=== PATIENT | female | born 1960 | race Caucasian/White ===

== ENCOUNTER → 2016-02-27 | Outpatient (REF) | payer MEDICARE | LOC: M LAB REF 12:42 | PROVIDERS: ATTEND Internal Medicine Medical Oncology | DX: G35 Multiple sclerosis (principal) ==

== ENCOUNTER → 2016-07-24 | Outpatient (REF) | payer MEDICARE | LOC: M LAB REF 12:51 | PROVIDERS: ATTEND Internal Medicine Medical Oncology | DX: G35 Multiple sclerosis (principal) ==

== ENCOUNTER → 2016-09-18 | Outpatient (REF) | payer MEDICARE ==
[2016-10-05 00:06] LABS: JCV ANTIBODY Positive (.)
== END ==
LOC: M LAB REF 16:37
PROVIDERS: ATTEND Internal Medicine Medical Oncology
DX: G35 Multiple sclerosis (principal); E55.9 Vitamin D deficiency, unspecified

== ENCOUNTER → 2017-09-05 | Outpatient (CLI) | payer MEDICARE ==
[2017-09-05 16:50] LABS: CREATININE FOR GFR 0.63 MG/DL (0.55-1.30); GLOMERULAR FILTRATION RATE > 60.0 (>51)
[2017-09-05 16:50] LABS: BLOOD UREA NITROGEN 19 MG/DL (7-18)
== END ==
LOC: M WUC 14:02
DX: N18.9 Chronic kidney disease, unspecified (principal)
CPT/HCPCS: 82565

== ENCOUNTER 2018-01-20 13:49 | Outpatient (CLI) | payer MEDICARE ==
[2018-01-20] MEDS: NATALIZUMAB OVER 1 HOUR IV (14:40)
[2018-01-20] MEDS: NS 250 ML IV (15:45)
== END 2018-01-20 17:00 | disposition home or self-care (01) ==
LOC: M INFU 13:49
DX: G35 Multiple sclerosis (principal)
CPT/HCPCS: J2323

== ENCOUNTER 2018-02-18 14:32 | Outpatient (CLI) | payer MEDICARE ==
[~2018-02-18] VITALS: Ht 160 cm; Wt 53.1 kg
[~2018-02-18 14:32] MED LIST: CARV6.25 PO; LISI-542 PO; MULTCAP PO
[2018-02-18 14:35] VITALS: BP 160/72
[2018-02-18] MEDS ORDERED: NATALIZUMAB OVER 1 HOUR IV ONE ×2 (15:15)
[2018-02-18] MEDS ORDERED: NS 250 ML IV ONE (16:15)
[2018-02-18 18:25] VITALS: BP 160/74
== END 2018-02-18 18:25 | disposition home or self-care (01) ==
LOC: M INFU 14:32
PROVIDERS: ATTEND Psychiatry & Neurology Neurology
DX: G35 Multiple sclerosis (principal)
CPT/HCPCS: 96361; 96365; J2323

== ENCOUNTER 2018-03-18 13:08 | Outpatient (CLI) | payer MEDICARE ==
[~2018-03-18] VITALS: Ht 160 cm; Wt 53.1 kg
[2018-03-18 13:20] VITALS: BP 131/59
[2018-03-18] MEDS ORDERED: NATALIZUMAB OVER 1 HOUR IV ONE ×2 (13:30)
[2018-03-18 13:40] LABS: BASO # 0.1 10^3/uL (0.0-0.2); EOS # 0.3 10^3/uL (0.0-0.50); HEMATOCRIT 38.9 % (36.0-47.0); HEMOGLOBIN 12.9 g/dl (12.0-15.5); LYMPH # 4.5 10^3/uL (1.5-4.5); LYMPH % 53.3 % (24.0-44.0); MEAN CORPUSCULAR HEMOGLOBIN 30.9 pg (27.0-33.0); MEAN CORPUSCULAR HGB CONC 33.2 g/dl (32.0-36.5); MEAN CORPUSCULAR VOLUME 93.1 fl (80.0-96.0); MONO # 0.8 10^3/uL (0.0-0.8); MONO % 8.9 % (0.0-5.0); NEUTROPHILS # 2.8 10^3/uL (1.8-7.7); NEUTROPHILS % 33.7 % (36.0-66.0); PLATELET COUNT, AUTOMATED 226 10^3/uL (150-450); RED BLOOD COUNT 4.18 10^6/uL (4.00-5.40); WHITE BLOOD COUNT 8.4 10^3/uL (4.0-10.0)
[2018-03-18 15:00] VITALS: BP 142/65
[2018-03-18] MEDS ORDERED: NS 250 ML IV ONE (15:15)
[2018-03-18 16:40] VITALS: BP 160/70
[2018-03-18 16:47] LABS: ALBUMIN 3.7 GM/DL (3.2-5.2); ALT/SGPT 21 U/L (12-78); BILIRUBIN,TOTAL 0.2 MG/DL (0.2-1.0); BLOOD UREA NITROGEN 22 MG/DL (7-18); CALCIUM LEVEL 8.8 MG/DL (8.5-10.1); CARBON DIOXIDE LEVEL 30 MEQ/L (21-32); CHLORIDE LEVEL 106 MEQ/L (98-107); CREATININE FOR GFR 0.63 MG/DL (0.55-1.30); GLOMERULAR FILTRATION RATE > 60.0 (>51); GLUCOSE, FASTING 107 MG/DL (70-100); POTASSIUM SERUM 3.8 MEQ/L (3.5-5.1); SODIUM LEVEL 141 MEQ/L (136-145)
== END 2018-03-18 16:35 | disposition home or self-care (01) ==
LOC: M INFU 13:08
PROVIDERS: ATTEND Psychiatry & Neurology Neurology
DX: G35 Multiple sclerosis (principal)
CPT/HCPCS: 80053; 85025; 96365; J2323

== ENCOUNTER 2018-04-15 11:09 | Outpatient (CLI) | payer MEDICARE ==
[~2018-04-15] VITALS: Ht 160 cm; Wt 53.1 kg
[2018-04-15 11:15] VITALS: BP 161/72
[2018-04-15] MEDS ORDERED: NATALIZUMAB OVER 1 HOUR IV ONE ×2 (12:00)
[2018-04-15 12:55] VITALS: BP 146/66
[2018-04-15] MEDS ORDERED: NS 250 ML IV ONE (13:00)
[2018-04-15 14:15] VITALS: BP 165/74
== END 2018-04-15 14:15 | disposition home or self-care (01) ==
LOC: M INFU 11:09
PROVIDERS: ATTEND Psychiatry & Neurology Neurology
DX: G35 Multiple sclerosis (principal)
CPT/HCPCS: 96365; 96367; J2323

== ENCOUNTER 2018-12-21 19:56 | Emergency (ER) | payer MEDICARE ==
[~2018-12-21] VITALS: Ht 157.5 cm; Wt 51.4 kg
[2018-12-21 19:57] VITALS: BP 104/58
== END 2018-12-22 00:01 | disposition left against medical advice (07) ==
LOC: M ED 19:56
DX: Z53.21 Procedure and treatment not carried out due to patient leaving prior to being seen by health care provider (principal)

== ENCOUNTER → 2018-12-29 | Outpatient (REF) | payer MEDICARE ==
[2018-12-29 13:24] LABS: BASO # 0.1 10^3/uL (0.0-0.2); BASO % 0.8 % (0.0-1.0); EOS # 0.4 10^3/uL (0.0-0.5); EOS % 4.5 % (0.0-3.0); HEMATOCRIT 27.8 % (36.0-47.0); HEMOGLOBIN 8.3 g/dl (12.0-15.5); LYMPH # 1.6 10^3/uL (1.5-5.0); LYMPH % 21.1 % (24.0-44.0); MEAN CORPUSCULAR HEMOGLOBIN 29.3 pg (27.0-33.0); MEAN CORPUSCULAR HGB CONC 29.9 g/dl (32.0-36.5); MEAN CORPUSCULAR VOLUME 98.2 fl (80.0-96.0); MONO # 0.6 10^3/uL (0.0-0.8); MONO % 7.9 % (0.0-5.0); NEUTROPHILS % 64.5 % (36.0-66.0); PLATELET COUNT, AUTOMATED 561 10^3/uL (150-450); RED BLOOD COUNT 2.83 10^6/uL (4.00-5.40); WHITE BLOOD COUNT 7.8 10^3/uL (4.0-10.0)
[2018-12-29 13:32] LABS: ALBUMIN 2.6 GM/DL (3.2-5.2); ALT/SGPT 23 U/L (12-78); BILIRUBIN,TOTAL 0.2 MG/DL (0.2-1.0); BLOOD UREA NITROGEN 12 MG/DL (7-18); C REACTIVE PROTEIN QUANTITATIV 3.97 MG/DL (0.00-0.30); CALCIUM LEVEL 8.6 MG/DL (8.8-10.2); CARBON DIOXIDE LEVEL 28 MEQ/L (21-32); CHLORIDE LEVEL 107 MEQ/L (98-107); CREATININE FOR GFR 0.57 MG/DL (0.55-1.30); GLOMERULAR FILTRATION RATE > 60.0 (>45); GLUCOSE, FASTING 73 MG/DL (70-100); SODIUM LEVEL 144 MEQ/L (136-145); TOTAL PROTEIN 6.2 GM/DL (6.4-8.2); VANCOMYCIN LEVEL TROUGH 10.4 UG/ML (10.0-20.0)
[2018-12-29 14:07] LABS: ERYTHROCYTE SEDIMENTATION RATE 124 mm/hr (0-30)
== END ==
LOC: M SHH 12:33
DX: L89.159 Pressure ulcer of sacral region, unspecified stage (principal)

== ENCOUNTER → 2019-01-01 | Outpatient (REF) | payer MEDICARE | LOC: M SHH 11:34 | PROVIDERS: ATTEND Internal Medicine Infectious Disease | DX: Z51.81 Encounter for therapeutic drug level monitoring (principal); M46.28 Osteomyelitis of vertebra, sacral and sacrococcygeal region ==

== ENCOUNTER → 2019-01-04 | Outpatient (REF) | payer MEDICARE ==
[2019-01-04 12:16] LABS: BASO # 0.1 10^3/uL (0.0-0.2); BASO % 1.8 % (0.0-1.0); EOS # 0.4 10^3/uL (0.0-0.5); EOS % 6.1 % (0.0-3.0); HEMATOCRIT 30.2 % (36.0-47.0); HEMOGLOBIN 9.3 g/dl (12.0-15.5); LYMPH # 1.4 10^3/uL (1.5-5.0); MEAN CORPUSCULAR HEMOGLOBIN 30.6 pg (27.0-33.0); MEAN CORPUSCULAR HGB CONC 30.8 g/dl (32.0-36.5); MEAN CORPUSCULAR VOLUME 99.3 fl (80.0-96.0); MONO # 0.4 10^3/uL (0.0-0.8); MONO % 6.6 % (0.0-5.0); NEUTROPHILS # 3.9 10^3/uL (1.5-8.5); PLATELET COUNT, AUTOMATED 447 10^3/uL (150-450); RED BLOOD COUNT 3.04 10^6/uL (4.00-5.40); WHITE BLOOD COUNT 6.2 10^3/uL (4.0-10.0)
[2019-01-04 12:18] LABS: ALBUMIN 2.8 GM/DL (3.2-5.2); ALT/SGPT 19 U/L (12-78); BILIRUBIN,TOTAL 0.4 MG/DL (0.2-1.0); BLOOD UREA NITROGEN 10 MG/DL (7-18); C REACTIVE PROTEIN QUANTITATIV 0.79 MG/DL (0.00-0.30); CALCIUM LEVEL 8.5 MG/DL (8.8-10.2); CARBON DIOXIDE LEVEL 27 MEQ/L (21-32); CHLORIDE LEVEL 110 MEQ/L (98-107); CREATININE FOR GFR 0.61 MG/DL (0.55-1.30); GLOMERULAR FILTRATION RATE > 60.0 (>45); GLUCOSE, FASTING 95 MG/DL (70-100); POTASSIUM SERUM 3.5 MEQ/L (3.5-5.1); SODIUM LEVEL 145 MEQ/L (136-145); TOTAL PROTEIN 6.4 GM/DL (6.4-8.2); VANCOMYCIN LEVEL TROUGH 22.1 UG/ML (10.0-20.0)
[2019-01-04 12:47] LABS: ERYTHROCYTE SEDIMENTATION RATE 64 mm/hr (0-30)
== END ==
LOC: M SHH 11:23
PROVIDERS: ATTEND Internal Medicine Infectious Disease
DX: Z79.2 Long term (current) use of antibiotics (principal)

== ENCOUNTER → 2019-01-11 | Outpatient (REF) | payer MEDICARE ==
[2019-01-11 12:28] LABS: BASO # 0.1 10^3/uL (0.0-0.2); BASO % 2.2 % (0.0-1.0); EOS # 0.3 10^3/uL (0.0-0.5); EOS % 5.1 % (0.0-3.0); HEMOGLOBIN 10.2 g/dl (12.0-15.5); LYMPH # 1.7 10^3/uL (1.5-5.0); LYMPH % 30.7 % (24.0-44.0); MEAN CORPUSCULAR HEMOGLOBIN 30.5 pg (27.0-33.0); MEAN CORPUSCULAR HGB CONC 30.9 g/dl (32.0-36.5); MEAN CORPUSCULAR VOLUME 98.8 fl (80.0-96.0); MONO # 0.4 10^3/uL (0.0-0.8); MONO % 7.6 % (0.0-5.0); PLATELET COUNT, AUTOMATED 312 10^3/uL (150-450); RED BLOOD COUNT 3.34 10^6/uL (4.00-5.40); WHITE BLOOD COUNT 5.5 10^3/uL (4.0-10.0)
[2019-01-11 12:33] LABS: BLOOD UREA NITROGEN 12 MG/DL (7-18); CALCIUM LEVEL 9.4 MG/DL (8.8-10.2); CARBON DIOXIDE LEVEL 28 MEQ/L (21-32); CHLORIDE LEVEL 110 MEQ/L (98-107); CREATININE FOR GFR 0.55 MG/DL (0.55-1.30); GLOMERULAR FILTRATION RATE > 60.0 (>45); GLUCOSE, FASTING 79 MG/DL (70-100); POTASSIUM SERUM 3.6 MEQ/L (3.5-5.1); SODIUM LEVEL 144 MEQ/L (136-145)
[2019-01-11 12:34] LABS: ALBUMIN 3.1 GM/DL (3.2-5.2); ALT/SGPT 17 U/L (12-78); BILIRUBIN,TOTAL 0.2 MG/DL (0.2-1.0); C REACTIVE PROTEIN QUANTITATIV 0.51 MG/DL (0.00-0.30); TOTAL PROTEIN 6.7 GM/DL (6.4-8.2); VANCOMYCIN LEVEL TROUGH 6.3 UG/ML (10.0-20.0)
[2019-01-11 12:58] LABS: ERYTHROCYTE SEDIMENTATION RATE 57 mm/hr (0-30)
== END ==
LOC: M SHH 11:59
PROVIDERS: ATTEND Internal Medicine Infectious Disease
DX: Z79.2 Long term (current) use of antibiotics (principal); T81.30XA Disruption of wound, unspecified, initial encounter

== ENCOUNTER → 2019-01-18 | Outpatient (REF) | payer MEDICARE ==
[~2019-01-18] MED LIST changes: +DIPH2.5T15 PO; +EXCETAB33 PO; +KLOR10TA76 PO; +PROBCAP14 PO; +TIZA2CAP PO; +VANC10IN IV; +VANC25SOL IV; +[UNRECOGNIZED DRUG - CODE] IV
[2019-01-18 10:59] LABS: BASO # 0.1 10^3/uL (0.0-0.2); BASO % 1.4 % (0.0-1.0); EOS # 0.2 10^3/uL (0.0-0.5); EOS % 4.1 % (0.0-3.0); HEMATOCRIT 33.9 % (36.0-47.0); HEMOGLOBIN 10.4 g/dl (12.0-15.5); LYMPH # 1.5 10^3/uL (1.5-5.0); LYMPH % 24.9 % (24.0-44.0); MEAN CORPUSCULAR HEMOGLOBIN 30.6 pg (27.0-33.0); MEAN CORPUSCULAR HGB CONC 30.7 g/dl (32.0-36.5); MEAN CORPUSCULAR VOLUME 99.7 fl (80.0-96.0); MONO # 0.3 10^3/uL (0.0-0.8); MONO % 5.4 % (0.0-5.0); NEUTROPHILS # 3.8 10^3/uL (1.5-8.5); NEUTROPHILS % 63.9 % (36.0-66.0); PLATELET COUNT, AUTOMATED 237 10^3/uL (150-450); WHITE BLOOD COUNT 5.9 10^3/uL (4.0-10.0)
[2019-01-18 11:28] LABS: ALBUMIN 3.2 GM/DL (3.2-5.2); ALT/SGPT 19 U/L (12-78); BILIRUBIN,TOTAL 0.2 MG/DL (0.2-1.0); BLOOD UREA NITROGEN 13 MG/DL (7-18); C REACTIVE PROTEIN QUANTITATIV 0.72 MG/DL (0.00-0.30); CALCIUM LEVEL 8.9 MG/DL (8.8-10.2); CARBON DIOXIDE LEVEL 28 MEQ/L (21-32); CHLORIDE LEVEL 110 MEQ/L (98-107); CREATININE FOR GFR 0.58 MG/DL (0.55-1.30); GLOMERULAR FILTRATION RATE > 60.0 (>45); GLUCOSE, FASTING 78 MG/DL (70-100); POTASSIUM SERUM 3.6 MEQ/L (3.5-5.1); SODIUM LEVEL 144 MEQ/L (136-145); TOTAL PROTEIN 6.7 GM/DL (6.4-8.2); VANCOMYCIN LEVEL TROUGH 14.2 UG/ML (10.0-20.0)
[2019-01-18 11:37] LABS: ERYTHROCYTE SEDIMENTATION RATE 57 mm/hr (0-30)
== END ==
LOC: M SHH 09:28
PROVIDERS: ATTEND Internal Medicine Infectious Disease
DX: T81.30XA Disruption of wound, unspecified, initial encounter (principal); Z79.2 Long term (current) use of antibiotics

== ENCOUNTER 2019-01-20 01:41 | Emergency (ER) | payer MEDICARE ==
[~2019-01-20] VITALS: Ht 160 cm; Wt 54.5 kg
[~2019-01-20 01:41] MED LIST changes: -DIPH2.5T15 PO; -EXCETAB33 PO; -KLOR10TA76 PO; -PROBCAP14 PO; -TIZA2CAP PO; -VANC10IN IV; -VANC25SOL IV; -[UNRECOGNIZED DRUG - CODE] IV
[2019-01-20] MEDS ORDERED: VANC10IN IV (02:31)
[2019-01-20] MEDS ORDERED: [UNRECOGNIZED DRUG - CODE] (02:31)
[2019-01-20 03:42] LABS: BASO # 0.1 10^3/uL (0.0-0.2); BASO % 0.8 % (0.0-1.0); EOS # 0.1 10^3/uL (0.0-0.5); EOS % 1.3 % (0.0-3.0); HEMATOCRIT 31.8 % (36.0-47.0); LYMPH # 0.9 10^3/uL (1.5-5.0); LYMPH % 10.9 % (24.0-44.0); MEAN CORPUSCULAR HGB CONC 31.4 g/dl (32.0-36.5); MEAN CORPUSCULAR VOLUME 98.5 fl (80.0-96.0); MONO # 0.5 10^3/uL (0.0-0.8); MONO % 6.2 % (0.0-5.0); NEUTROPHILS # 6.7 10^3/uL (1.5-8.5); NEUTROPHILS % 80.4 % (36.0-66.0); PLATELET COUNT, AUTOMATED 241 10^3/uL (150-450); RED BLOOD COUNT 3.23 10^6/uL (4.00-5.40); WHITE BLOOD COUNT 8.3 10^3/uL (4.0-10.0)
[2019-01-20] MEDS ORDERED: ACETAMINOPHEN TAB 650MG DOSE (2X325MG) PO ONE (03:45)
[2019-01-20] MEDS ORDERED: NS 1,000 ML IV ONE (03:45)
--- NOTE | 2019-01-20 03:49 | REPVR ---
PROCEDURE INFORMATION: Exam: CT Head Without Contrast Exam date and time: 01/20/2019 3:23 AM Age: 58 years old Clinical history: Pain; Headache; Additional info: B/l motor dysfunction, HX of ms TECHNIQUE: Imaging protocol: Computed tomography of the head without contrast. Radiation optimization: All CT scans at this facility use at least one of these dose optimization techniques: automated exposure control; mA and/or kV adjustment per patient size (includes targeted exams where dose is matched to clinical indication); or iterative reconstruction. COMPARISON: MRI-Brain W/O FOLL BY WITH 02/23/2013 2:38 PM FINDINGS: Brain: There is moderate patchy low attenuation of deep white matter. There is slight prominence of the peripheral sulci. Ventricles: There is slight prominence of the central ventricular system. Bones/joints: Unremarkable. No acute fracture. Sinuses: Visualized sinuses are unremarkable. No fluid levels. Mastoid air cells: Visualized mastoid air cells are well aerated. Soft tissues: Unremarkable. IMPRESSION: 1. Moderate chronic ischemic white matter change and minimal atrophy. 2. Otherwise negative noncontrast head CT. Electronically signed by: Mati Melchor On 01/20/2019 03:49:08 AM
[2019-01-20 03:52] LABS: ALBUMIN 3.2 GM/DL (3.2-5.2); ALT/SGPT 24 U/L (12-78); BILIRUBIN,DIRECT < 0.1 MG/DL (0.0-0.2); BILIRUBIN,TOTAL 0.3 MG/DL (0.2-1.0); LIPASE 83 U/L (73-393); TOTAL PROTEIN 6.9 GM/DL (6.4-8.2)
[2019-01-20] MEDS ORDERED: POTASSIUM CHLORIDE 10 MEQ SR TABLET PO ONE (04:15)
[2019-01-20 04:40] LABS: INFLUENZA A AMPLIFICATION NEGATIVE (NEGATIVE); INFLUENZA B AMPLIFICATION NEGATIVE (NEGATIVE)
[2019-01-20 05:15] VITALS: BP 123/60
== END 2019-01-20 06:48 | disposition home or self-care (01) ==
LOC: M ED 01:41
DX: G35 Multiple sclerosis (principal); R29.818 Other symptoms and signs involving the nervous system; R50.9 Fever, unspecified; I10 Essential (primary) hypertension; Z79.899 Other long term (current) drug therapy; Z79.2 Long term (current) use of antibiotics

== ENCOUNTER → 2019-01-25 | Outpatient (REF) | payer MEDICARE ==
[~2019-01-25] MED LIST changes: +VANC10IN IV; +[UNRECOGNIZED DRUG - CODE]
[2019-01-25 11:01] LABS: BASO # 0.1 10^3/uL (0.0-0.2); BASO % 1.9 % (0.0-1.0); EOS # 0.3 10^3/uL (0.0-0.5); EOS % 5.2 % (0.0-3.0); HEMATOCRIT 30.5 % (36.0-47.0); HEMOGLOBIN 9.8 g/dl (12.0-15.5); LYMPH # 1.5 10^3/uL (1.5-5.0); MEAN CORPUSCULAR HEMOGLOBIN 30.9 pg (27.0-33.0); MEAN CORPUSCULAR HGB CONC 32.1 g/dl (32.0-36.5); MEAN CORPUSCULAR VOLUME 96.2 fl (80.0-96.0); MONO # 0.4 10^3/uL (0.0-0.8); MONO % 8.2 % (0.0-5.0); NEUTROPHILS % 56.5 % (36.0-66.0); PLATELET COUNT, AUTOMATED 347 10^3/uL (150-450); RED BLOOD COUNT 3.17 10^6/uL (4.00-5.40); WHITE BLOOD COUNT 5.4 10^3/uL (4.0-10.0)
[2019-01-25 11:33] LABS: ALBUMIN 2.8 GM/DL (3.2-5.2); ALT/SGPT 20 U/L (12-78); BILIRUBIN,TOTAL 0.5 MG/DL (0.2-1.0); BLOOD UREA NITROGEN 6 MG/DL (7-18); C REACTIVE PROTEIN QUANTITATIV 2.39 MG/DL (0.00-0.30); CALCIUM LEVEL 8.7 MG/DL (8.8-10.2); CARBON DIOXIDE LEVEL 28 MEQ/L (21-32); CHLORIDE LEVEL 105 MEQ/L (98-107); CREATININE FOR GFR 0.62 MG/DL (0.55-1.30); GLOMERULAR FILTRATION RATE > 60.0 (>45); GLUCOSE, FASTING 74 MG/DL (70-100); POTASSIUM SERUM 3.1 MEQ/L (3.5-5.1); SODIUM LEVEL 145 MEQ/L (136-145); TOTAL PROTEIN 6.5 GM/DL (6.4-8.2); VANCOMYCIN LEVEL TROUGH 15.4 UG/ML (10.0-20.0)
[2019-01-25 11:58] LABS: ERYTHROCYTE SEDIMENTATION RATE 63 mm/hr (0-30)
== END ==
LOC: M SHH 10:45
PROVIDERS: ATTEND Internal Medicine Infectious Disease
DX: Z79.2 Long term (current) use of antibiotics (principal)

== ENCOUNTER 2019-02-01 17:57 | Observation (INO) | payer MEDICARE ==
[~2019-02-01] VITALS: Ht 160 cm; Wt 53.7 kg
[~2019-02-01 17:57] MED LIST changes: -EXCETAB33 PO; -KLOR10TA76 PO; -PROBCAP14 PO; -TIZA2CAP PO; -VANC25SOL IV
[2019-02-01] MEDS ORDERED: VANC25SOL IV (18:05)
[2019-02-01 18:41] LABS: BASO # 0.1 10^3/uL (0.0-0.2); BASO % 1.1 % (0.0-1.0); EOS # 0.3 10^3/uL (0.0-0.5); EOS % 4.2 % (0.0-3.0); HEMATOCRIT 28.1 % (36.0-47.0); HEMOGLOBIN 8.6 g/dl (12.0-15.5); LYMPH # 1.8 10^3/uL (1.5-5.0); LYMPH % 27.5 % (24.0-44.0); MEAN CORPUSCULAR HEMOGLOBIN 30.5 pg (27.0-33.0); MEAN CORPUSCULAR HGB CONC 30.6 g/dl (32.0-36.5); MEAN CORPUSCULAR VOLUME 99.6 fl (80.0-96.0); MONO # 0.6 10^3/uL (0.0-0.8); MONO % 9.6 % (0.0-5.0); NEUTROPHILS # 3.8 10^3/uL (1.5-8.5); NEUTROPHILS % 57.3 % (36.0-66.0); PLATELET COUNT, AUTOMATED 317 10^3/uL (150-450); RED BLOOD COUNT 2.82 10^6/uL (4.00-5.40); WHITE BLOOD COUNT 6.7 10^3/uL (4.0-10.0)
[2019-02-01 19:19] LABS: BLOOD UREA NITROGEN 12 MG/DL (7-18); CALCIUM LEVEL 9.1 MG/DL (8.8-10.2); CARBON DIOXIDE LEVEL 31 MEQ/L (21-32); CHLORIDE LEVEL 107 MEQ/L (98-107); CREATININE FOR GFR 0.94 MG/DL (0.55-1.30); GLOMERULAR FILTRATION RATE > 60.0 (>45); GLUCOSE, FASTING 99 MG/DL (70-100); POTASSIUM SERUM 2.5 MEQ/L (3.5-5.1); SODIUM LEVEL 144 MEQ/L (136-145)
[2019-02-01] MEDS ORDERED: KCL 10MEQ/100ML SWI (KRUN) 10 MEQ in IV 1 EA IV ONE (19:30)
[2019-02-01] MEDS ORDERED: POTASSIUM CHLORIDE 10 MEQ SR TABLET PO ONE ×2 (19:30→21:00)
--- NOTE | 2019-02-01 19:49 | HPEPDOC ---
[facility] Medical History & Physical Date of Admission Feb 01, 2019 Date of Service: Feb 01, 2019 Attending Physician: SIRI MORALEZ MD History and Physical TIME OF SERVICE: 9 PM CHIEF COMPLAINT: Sent by home RN HISTORY OF PRESENT ILLNESS: This is a 58-year-old female who was sent to the hospital by her home RN who lisha blood and noticed that her potassium was low. The patient denies having nausea or vomiting, but admits to having diarrhea off and on for the last few days and muscle cramps affecting her right leg. She denies having chest pain or palpitations. 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 Right hip fracture status post ORIF Chronic hypertension SOCIAL HISTORY: She denies smoking FAMILY HISTORY: Hypertension ALLERGIES: Please see below. HOME MEDICATIONS: Please see below. PHYSICAL EXAMINATION: VITAL SIGNS: Please see below. GEN: Slim build/ well developed/ NAD INTEGUMENT: not flushed/ not jaundice / she has a sacral wound HEENT: normocephalic / atraumatic /mucus membranes moist and pink / sclera anicteric CVS: RRR/NMRG/ / radial pulses intact / no lower extremity edema LUNGS: lungs are clear to auscultation bilaterally on room air ABDOMEN: the abdomen is soft & not tender with palpation MSK/EXTREMITIES: range of motion intact in all 4 extremities NEURO: CN 2-12 are grossly intact / speech is not dysarthric PSYCH: alert and oriented to person place and time/ able to understand and follow all commands/ has a flat affect LABORATORY DATA: See below. MICROBIOLOGY: Please see below. ASSESSMENT: is a 58-year-old with a past medical history of MS, sacral wound with osteomyelitis, and chronic hypertension. Will be admitted for management of hypokalemia, likely secondary to diarrhea. PLAN: 1. Hypokalemia likely due to diarrhea EKG showed normal sinus rhythm with a heart rate of 69 and QTC of 357 Her serum magnesium and calcium are within normal limits Plan: Follow up repeat potassium/replete electrolytes as necessary 2. Diarrhea Cause to be determined. She does not have any SIRS criteria Plan: Contact precautions/because she is on abx we will test for C. difficile / since she is immunocompromised, we will also test for Giardia, stool calprotectin stool, ova & parasites 3. Uncontrolled hypertension. Plan: Resume lisinopril tonight 4. Macrocytic anemia. It may be due to to natalizumab vs B12 deficiency vs liver disease vs hypothyroidism vs aplastic anemia vs folate deficiency Her hemoglobin is 8.6--> her baseline is around 9.8 Plan: f/u reticulocyte #, B12, RBC folate, TSH & LFTs / target Hg >7 5. Chronic Stage IV Sacral Wound Plan: air matress / wound care 6. Multiple Sclerosis Plan: f/u w as scheduled DVT prophylaxis with SCDs. Disposition: Likely home after less than 2 midnight stay Vital Signs Vital Signs Date Time Temp Pulse Resp B/P (MAP) Pulse Ox O2 Delivery O2 Flow Rate FiO2 02/01/19 18:30 02/01/19 18:27 71 100 02/01/19 17:57 98.5 16 Room Air Laboratory Data Labs 24H Laboratory Tests 2 02/01/19 18:34: Immature Granulocyte % (Auto) 0.3, Neutrophils (%) (Auto) 57.3, Lymphocytes (%) (Auto) 27.5, Monocytes (%) (Auto) 9.6H, Eosinophils (%) (Auto) 4.2H, Basophils (%) (Auto) 1.1H, Neutrophils # (Auto) 3.8, Lymphocytes # (Auto) 1.8, Monocytes # (Auto) 0.6, Eosinophils # (Auto) 0.3, Basophils # (Auto) 0.1, Nucleated Red Blood Cells % (auto) 0.0, Anion Gap 6L, Glomerular Filtration Rate > 60.0, Calcium Level 9.1 CBC/BMP Laboratory Tests 02/01/19 18:34 Home Medications Scheduled Carvedilol (Carvedilol) 6.25 Mg Tab, 6.25 MG PO BID Lactobacillus Acidophilus (Probiotic) 1 Each Capsule, 1 CAP PO DAILY Lisinopril (Lisinopril) 5 Mg Tab, 5 MG PO QHS Piperacillin Sodium/Tazobactam (Piperacil-Tazobact 40.5 Gram) 40.5 Gm Vial, 13.5 GM IV DAILY INFUSE AT 10ML/HOUR OVER 24 HOURS Potassium Chloride (Klor-Con M10) 10 Meq Tab.er.prt, 40 MEQ PO BID Vancomycin HCl (Vancomycin HCl) 5 Gm Vial, 1.5 GM IV DAILY THRU 02/03/19 Scheduled PRN Aspirin/Acetaminophen/Caffeine (Excedrin Migraine Caplet) 1 Each Tablet, 2 TAB- CAP PO DAILY PRN for HEADACHE Tizanidine HCl (Tizanidine HCl) 2 Mg Capsule, 2 MG PO TID PRN for SPASMS Allergies Coded Allergies: No Known Allergies (Unverified , 12/21/18) A-FIB/CHADSVASC A-FIB History Current/History of A-Fib/PAF?: No Current PO Anticoag Therapy: No SIRI MORALEZ MD Feb 01, 2019 19:49
[2019-02-01] MEDS ORDERED: TIZA2CAP PO (20:06)
[2019-02-01] MEDS ORDERED: EXCETAB33 PO (20:06)
[2019-02-01] MEDS ORDERED: PROBCAP14 PO (20:06)
[2019-02-01] MEDS ORDERED: lisinopriL 5 MG TAB PO SCH (21:00)
[2019-02-01] MEDS: CARVedilol 6.25 MG TAB PO SCH (21:14)
[2019-02-01] MEDS ORDERED: PILL CUTTER 1 EACH XX PRN (21:15)
[2019-02-01] MEDS ORDERED: tiZANidine 4 MG TAB PO PRN (21:15)
[2019-02-01] MEDS ORDERED: PERCOCET 5MG/325MG TAB PO ONE (21:15)
[2019-02-01] MEDS ORDERED: EXCEDRIN MIGRAINE TABLET PO PRN (21:15)
[2019-02-01] MEDS: KCL 40MEQ IN D5/0.45NS 1000ML 1,000 ML IV SCH (21:46)
[2019-02-01 22:51] LABS: MAGNESIUM LEVEL 2.2 MG/DL (1.8-2.4)
[2019-02-01 22:55] VITALS: BP 152/82
[2019-02-02] MEDS: KCL 40MEQ IN D5/0.45NS 1000ML 1,000 ML IV SCH ×2 (02:58→08:02)
[2019-02-02] MEDS ORDERED: POTASSIUM CHLORIDE 10 MEQ SR TABLET PO ONE (03:00)
[2019-02-02 06:00] VITALS: BP 148/80
[2019-02-02 06:12] LABS: HEMATOCRIT 30.2 % (36.0-47.0); HEMOGLOBIN 9.2 g/dl (12.0-15.5); MEAN CORPUSCULAR HEMOGLOBIN 30.5 pg (27.0-33.0); MEAN CORPUSCULAR HGB CONC 30.5 g/dl (32.0-36.5); PLATELET COUNT, AUTOMATED 345 10^3/uL (150-450); RED BLOOD COUNT 3.02 10^6/uL (4.00-5.40); WHITE BLOOD COUNT 5.6 10^3/uL (4.0-10.0)
[2019-02-02 06:37] LABS: BLOOD UREA NITROGEN 7 MG/DL (7-18); CARBON DIOXIDE LEVEL 26 MEQ/L (21-32); CHLORIDE LEVEL 113 MEQ/L (98-107); CREATININE FOR GFR 0.78 MG/DL (0.55-1.30); GLOMERULAR FILTRATION RATE > 60.0 (>45); GLUCOSE, FASTING 109 MG/DL (70-100); MAGNESIUM LEVEL 2.2 MG/DL (1.8-2.4); POTASSIUM SERUM 3.6 MEQ/L (3.5-5.1); SODIUM LEVEL 145 MEQ/L (136-145)
[2019-02-02 08:03] VITALS: BP 147/85
[2019-02-02] MEDS: CARVedilol 6.25 MG TAB PO SCH (08:03)
--- NOTE | 2019-02-02 08:12 | ECGEPIP ---
[facility] - ED Test Date: 2019-02-01 Pat Name: GAMALIEL VASQUEZ Department: Room: [place] [address] Gender: Female Commercial Accountant: : [id number] Requested By: GEMA Shaffer Order Number: [id number] Reading MD: Ricky Garner Measurements Intervals [place] Rate: 69 P: 46 WV: 149 QRS: 15 QRSD: 94 T: 12 QT: 338 QTc: 363 Interpretive Statements SINUS RHYTHM NSTTW ABNORMALITIES NO PRIORS FOR COMPARISON Electronically Signed on 02-02-2019 8:12:04 EST by Ricky Garner
[2019-02-02] MEDS ORDERED: KLOR10TA76 PO (08:44)
[2019-02-02] MEDS ORDERED: PIPERACILLIN IV SCH (09:00)
[2019-02-02] MEDS ORDERED: PIPERACILLIN/TAZOBACTAM SOD 4.5 GM in D5W MINI-BAG PLUS 50 ML IV SCH (09:00)
[2019-02-02] MEDS ORDERED: TAZOBACTAM IV SCH (09:00)
[2019-02-02] MEDS ORDERED: LACTOBACILLUS ACIDOPHILUS CAP (BACID) PO SCH (09:00)
[2019-02-02] MEDS ORDERED: POTASSIUM CHLORIDE 10 MEQ SR TABLET PO SCH (09:00)
--- NOTE | 2019-02-02 14:31 | DSES ---
DATE OF ADMISSION: 02/01/2019 DATE OF DISCHARGE: 02/02/2019 PRIMARY DISCHARGE DIAGNOSES: 1. Hypokalemia. 2. Stage IV sacral wounds with osteomyelitis with failed surgical flap on chronic IV vancomycin and Zosyn, followed by infectious disease specialist Dr. Hua. 3. History of multiple sclerosis, currently in a wheelchair. 4. Chronic hypertensive heart disease. DISCHARGE MEDICATIONS: - potassium chloride 40 mEq by mouth twice a day - Excedrin migraine two capsules daily as needed - Coreg 6.25 twice a day - probiotic one cap daily - lisinopril 5 at bedtime - vancomycin 1.5 grams daily - tizanidine 10 mg three times a day as needed - Zosyn 13.5 grams IV daily HOSPITAL COURSE: This is a 58-year-old female with history of stage IV infected osteomyelitis sacral wound on chronic IV vancomycin followed by Dr. Hua as an outpatient, multiple sclerosis, currently bed bound and wheelchair, right hip fracture status post ORIF and chronic hypertension who presented to the emergency room with low potassium level. The patient was supplemented overnight both orally and intravenously. Magnesium was checked which was 2.2. The patient had improvement from admission potassium of 2.5 to discharge potassium of 3.6 and was released on supplemental potassium 40 mEq twice a day without outpatient followup with her primary care physician within a week. The patient had no other issues overnight and was continued on her IV antibiotics during the hospital admission. PHYSICAL EXAMINATION ON DISCHARGE: Temperature 98.1, pulse 70, respiratory rate 17, blood pressure 148/80, 97% on room air. Generally, patient is awake, alert and oriented to person, place and time. Able to speak in full sentences with no respiratory distress or use of respiratory accessory muscles. Lungs are clear to auscultation. No wheezing, rales or rhonchi. Heart S1, S2 sinus rhythm. No murmurs, rubs or gallops. Abdomen is soft, nontender, nondistended. Positive bowel sounds times four quadrants. No hepatosplenomegaly. Sacrum has a stage IV decubitus, no purulence, no significant tenderness. Extremities no cyanosis, clubbing or any pitting edema. LABORATORY DATA ON DISCHARGE: White count 5.6, hemoglobin 9.2, hematocrit 30, platelet count 345. Sodium 145, potassium 3.6, chloride 113, bicarb 26, BUN 7, creatinine 0.78, glucose of 109, magnesium of 2.2. Time spent on discharge: 30 minutes. MTDD
== END 2019-02-02 11:14 | disposition home or self-care (01) ==
LOC: M ED 17:57 → M ED INP 17:58 → M MSPAV 22:55
PROVIDERS: ADMIT Internal Medicine; ATTEND General Practice
DX: E87.6 Hypokalemia (principal); M46.28 Osteomyelitis of vertebra, sacral and sacrococcygeal region; L89.154 Pressure ulcer of sacral region, stage 4; G35 Multiple sclerosis; T81.30XA Disruption of wound, unspecified, initial encounter; Z79.2 Long term (current) use of antibiotics; Z99.3 Dependence on wheelchair; Z79.899 Other long term (current) drug therapy; I11.0 Hypertensive heart disease with heart failure
CPT/HCPCS: 36415; 80053; 80202; 83735; 84132; 85025; 85027; 85652; 86140; 93005; 93041; 94760; 96360; 96361; 99285; G0378

== ENCOUNTER → 2019-02-01 | Outpatient (REF) | payer MEDICARE ==
[~2019-02-01] MED LIST changes: +EXCETAB33 PO; +KLOR10TA76 PO; +PROBCAP14 PO; +TIZA2CAP PO; +VANC25SOL IV; -[UNRECOGNIZED DRUG - CODE]; +[UNRECOGNIZED DRUG - CODE] IV
[2019-02-01 12:18] LABS: BASO # 0.1 10^3/uL (0.0-0.2); EOS # 0.1 10^3/uL (0.0-0.5); EOS % 1.3 % (0.0-3.0); HEMATOCRIT 29.8 % (36.0-47.0); HEMOGLOBIN 9.3 g/dl (12.0-15.5); LYMPH # 1.1 10^3/uL (1.5-5.0); LYMPH % 14.3 % (24.0-44.0); MEAN CORPUSCULAR HEMOGLOBIN 30.8 pg (27.0-33.0); MEAN CORPUSCULAR HGB CONC 31.2 g/dl (32.0-36.5); MEAN CORPUSCULAR VOLUME 98.7 fl (80.0-96.0); MONO # 0.6 10^3/uL (0.0-0.8); NEUTROPHILS % 76.1 % (36.0-66.0); PLATELET COUNT, AUTOMATED 372 10^3/uL (150-450); RED BLOOD COUNT 3.02 10^6/uL (4.00-5.40); WHITE BLOOD COUNT 7.8 10^3/uL (4.0-10.0)
[2019-02-01 13:03] LABS: ERYTHROCYTE SEDIMENTATION RATE 86 mm/hr (0-30)
[2019-02-01 14:06] LABS: ALBUMIN 2.7 GM/DL (3.2-5.2); ALT/SGPT 40 U/L (12-78); BILIRUBIN,TOTAL 0.3 MG/DL (0.2-1.0); BLOOD UREA NITROGEN 9 MG/DL (7-18); CALCIUM LEVEL 8.7 MG/DL (8.8-10.2); CARBON DIOXIDE LEVEL 31 MEQ/L (21-32); CHLORIDE LEVEL 107 MEQ/L (98-107); GLOMERULAR FILTRATION RATE > 60.0 (>45); GLUCOSE, FASTING 86 MG/DL (70-100); POTASSIUM SERUM 2.5 MEQ/L (3.5-5.1); SODIUM LEVEL 144 MEQ/L (136-145); TOTAL PROTEIN 6.4 GM/DL (6.4-8.2)
== END ==
LOC: M LAB REF 11:48
PROVIDERS: ATTEND Internal Medicine Infectious Disease
DX: T81.30XA Disruption of wound, unspecified, initial encounter (principal); Z79.2 Long term (current) use of antibiotics

== ENCOUNTER → 2019-02-04 | Outpatient (REF) | payer MEDICARE ==
[~2019-02-04] MED LIST changes: +EXCETAB33 PO; +KLOR10TA76 PO; +PROBCAP14 PO; +TIZA2CAP PO; +VANC25SOL IV
== END ==
LOC: M SFHCPLAZ 18:37
PROVIDERS: ATTEND Internal Medicine Infectious Disease
DX: R19.7 Diarrhea, unspecified (principal)

== ENCOUNTER 2019-02-09 11:57 | Emergency (ER) | payer MEDICARE ==
[~2019-02-09] VITALS: Ht 160 cm; Wt 5.4 kg
[2019-02-09] MEDS ORDERED: DIPH2.5T15 PO (12:14)
[2019-02-09 14:15] VITALS: BP 174/79
== END 2019-02-09 14:44 | disposition home or self-care (01) ==
LOC: EDSEX 11:57 → EDBD 11:57 → M ED 11:57
DX: L89.154 Pressure ulcer of sacral region, stage 4 (principal); J44.9 Chronic obstructive pulmonary disease, unspecified; G35 Multiple sclerosis; Z79.899 Other long term (current) drug therapy; Z79.82 Long term (current) use of aspirin

== ENCOUNTER → 2019-02-18 | Outpatient (REF) | payer MEDICARE ==
[~2019-02-18] MED LIST changes: +DIPH2.5T15 PO; +POTA10TA17 PO
== END ==
LOC: M SFHCPLAZ 14:23
PROVIDERS: ATTEND Surgery
DX: T81.31XD Disruption of external operation (surgical) wound, not elsewhere classified, subsequent encounter (principal)

== ENCOUNTER 2019-03-15 15:45 | Inpatient (IN) | payer MEDICARE ==
[~2019-03-15] VITALS: Ht 160 cm; Wt 45.1 kg
[~2019-03-15 15:45] MED LIST changes: -POTA10TA17 PO
[2019-03-15] MEDS ORDERED: ACETAMINOPHEN TAB 650MG DOSE (2X325MG) PO ONE (16:15)
[2019-03-15] MEDS ORDERED: GI COCKTAIL 50ML BTL(HYOSCYAMINE/MAALOX/LIDOCAINE VISCOUS)(1:3:1) PO ONE (16:30)
[2019-03-15] MEDS ORDERED: NS 1,000 ML IV ONE (16:30)
[2019-03-15] MEDS ORDERED: EXCEDRIN MIGRAINE TABLET PO PRN (16:45)
[2019-03-15 16:52] LABS: BASO # 0.1 10^3/uL (0.0-0.2); BASO % 0.5 % (0.0-1.0); EOS # 0.1 10^3/uL (0.0-0.5); EOS % 0.7 % (0.0-3.0); HEMATOCRIT 26.4 % (36.0-47.0); LYMPH # 0.9 10^3/uL (1.5-5.0); LYMPH % 7.7 % (24.0-44.0); MEAN CORPUSCULAR HEMOGLOBIN 28.5 pg (27.0-33.0); MEAN CORPUSCULAR HGB CONC 30.3 g/dl (32.0-36.5); MONO # 0.5 10^3/uL (0.0-0.8); MONO % 4.4 % (0.0-5.0); NEUTROPHILS # 10.5 10^3/uL (1.5-8.5); NEUTROPHILS % 86.2 % (36.0-66.0); PLATELET COUNT, AUTOMATED 950 10^3/uL (150-450); RED BLOOD COUNT 2.81 10^6/uL (4.00-5.40); WHITE BLOOD COUNT 12.1 10^3/uL (4.0-10.0)
[2019-03-15 17:09] LABS: ALBUMIN 2.2 GM/DL (3.2-5.2); ALT/SGPT 19 U/L (12-78); BILIRUBIN,DIRECT < 0.1 MG/DL (0.0-0.2); BILIRUBIN,TOTAL < 0.1 MG/DL (0.2-1.0); BLOOD UREA NITROGEN 18 MG/DL (7-18); CALCIUM LEVEL 8.5 MG/DL (8.8-10.2); CARBON DIOXIDE LEVEL 28 MEQ/L (21-32); CHLORIDE LEVEL 101 MEQ/L (98-107); CK-MB VALUE MASS 1.1 NG/ML (<3.6); CPK CREATINE PHOSPHOKINASE 37 U/L (26-192); CREATININE FOR GFR 0.61 MG/DL (0.55-1.30); GLOMERULAR FILTRATION RATE > 60.0 (>45); GLUCOSE, FASTING 92 MG/DL (70-100); MB/CK RELATIVE INDEX 2.97 (< OR =4); POTASSIUM SERUM 4.1 MEQ/L (3.5-5.1); SODIUM LEVEL 138 MEQ/L (136-145); TOTAL PROTEIN 6.6 GM/DL (6.4-8.2); TROPONIN I < 0.02 NG/ML (< 0.10)
[2019-03-15 17:14] LABS: INFLUENZA A AMPLIFICATION NEGATIVE (NEGATIVE); INFLUENZA B AMPLIFICATION NEGATIVE (NEGATIVE)
--- NOTE | 2019-03-15 17:15 | REP ---
Portable chest, single AP view with the patient upright, 04:53 p.m.: Comparison is 06/14/2011. The patient is rotated obscuring portions of the lung ly. The visualized lung ly are clear. On the prior study there were left rib fractures. These are obscured on the current study because of patient rotation. Impression: No infiltrates in the visualized lung ly. Patient rotated. Electronically Signed by Morgan Jose MD 03/15/2019 05:07 P
[2019-03-15] MEDS ORDERED: POTA10TA17 PO (17:52)
[2019-03-15] MEDS ORDERED: VANCOMYCIN HCL 1,000 MG, VIAL MATE ADAPTER 1 EACH in D5W 250 ML IV SCH (20:00)
[2019-03-15] MEDS ORDERED: ONDANSETRON 4MG/2ML VIAL IV PRN (20:00)
[2019-03-15] MEDS ORDERED: LORazepam 2 MG/ML VIAL (J2060) IV STA (20:43)
[2019-03-15] MEDS ORDERED: PROHANCE 279.3MG/ML 5ML VIAL As Ordered ONE (21:52)
[2019-03-15] MEDS ORDERED: PIPERACILLIN/TAZOBACTAM SOD 3.375 GM in D5W MINI-BAG PLUS 50 ML IV ONE (22:00)
[2019-03-15] MEDS ORDERED: VANCOMYCIN HCL 1,000 MG, VIAL MATE ADAPTER 1 EACH in D5W 250 ML IV ONE (22:00)
[2019-03-15] MEDS ORDERED: tiZANidine 4 MG TAB PO PRN (22:30)
--- NOTE | 2019-03-15 22:39 | HPEPDOC ---
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 She was advised by her home nurse to come to the ER for further evaluation after a [id number] earlier this evening. She notes that shes noticed she is unable to lift herself up from a wheelchair which is a test that she can normally do. She notes that last Friday she had her wound appreciated by Dr. Matt office and noticed that her symptoms occurred 24 hours later. She states that she has her wounds changed every Friday and Friday by her home care nurse and Friday when she goes to Dr. Matt office. She notes that she had a bone pathology done in February 19 which was positive for osteomyelitis even though shes completed 6 weeks of IV antibiotics. She was supposed to reestablish with Dr. Hua, to see if she needs to be restarted on a ntibiotics. She denies weight loss, hair loss, headache, visual changes, chest pain, shortness of breath, cough, nausea, vomiting, abdominal pain, muscle aches, worsening arthritis, change in mood] PAST MEDICAL HISTORY: 1. Multiple sclerosis 2. Hypertension. 3. Sacral osteomyelitis with failed sacral flap at [facility] 12/14/2018, repleted 6 weeks of antibiotics (Vanco and Zosyn) 4. History of right hip fracture s/p ORIF 5. History of lower extremity edema HOME MEDICATIONS: Please see below. ALLERGIES: Please see below PAST SURGICAL HISTORY: 1. Failed sacral flap repair 2018 2. Hip fracture repair 2015 SOCIAL HISTORY: Lives with: Alone in [place] Employment: Retired/disabled, Tobacco use: Nonsmoker. ETOH: Denies, Illicit drug use: Denies, CODE STATUS: Full code FAMILY HISTORY: Reviewed and noncontributory. Son- , father - heart disease, history of cancer, hypertension. Mother - heart disease, hypertension, history of cancer. REVIEW OF SYSTEMS: 10 systems reviewed and negative other than HPI PHYSICAL EXAMINATION: VITAL SIGNS: See below GENERAL: Pleasant 58 female laying in bed awake alert oriented speaking in complete sentences no acute distress HEENT: Atraumatic, normocephalic, pupils are equal round and reactive, moist mucous membranes, no JVD CARDIOVASCULAR: S1 S2 regular faint 1/6 systolic murmur appreciated at the fifth intercostal space on the left. No audible rubs or gallops noted. RESPIRATORY: Clear to auscultation bilaterally. ABDOMINAL: Bowel sounds present abdomen soft and nontender EXTREMITIES: No clubbing cyanosis or edema NEUROLOGICAL: Spontaneously moves all 4 extremities cranial 2 through 12 grossly intact no gross focal deficits appreciated PSYCHOLOGICAL: Flat affect SACRUM: Foul-smelling, stage IV pressure ulcer on the coccyx with wound VAC in place. LABORATORY DATA: See below. MICROBIOLOGY: Please see below. 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 PROBLEMS: 1.Fever. Possible secondary to stage IV sacral wound/ refractory osteomyelitis. Had a recent debridement this past Friday and symptoms started after. Has a history of osteomyelitis in November 2018 where she completed 6 weeks of IV antibiotics outpatient. She had a bone pathology obtained by Dr. Matt office on 02/19/2019 which was positive for osteomyelitis. With the elevated CRP that she might have refractory osteomyelitis. Will obtain an MRI of the pelvis with and without contrast. We started her on IV vancomycin and Zosyn. Dr. Hua, ID, consulted, who recommended to consult Dr. Judge, Plastic surgery, during the day for evaluation of the wound. 2. Weakness possibly secondary to problem 1 and Advanced Multiple sclerosis. PT OT on board. 3. Hypertension. Continue w/Lisinopril and Carvedilol 4. Chronic Diarrhea. Has had diarrhea on and off for the last couple months. GI panel has been negative. Well repeat GI panel if negative can continue with home Lomotil 5. Advanced Multiple sclerosis. Wheelchair-bound. Continue with home tizanidine PRN DVT PROPHYLAXIS: Heparin DISPOSITION: Admit to inpatient for at least 2 mid nights. Vital Signs Vital Signs Date Time Temp Pulse Resp B/P (MAP) Pulse Ox O2 Delivery O2 Flow Rate FiO2 03/15/19 20:45 110 95 1/20/20 20:30 131/61 (84) 03/15/19 18:30 Room Air 03/15/19 16:04 102.6 24 Laboratory Data Labs 24H Laboratory Tests 2 03/15/19 16:01: Immature Granulocyte % (Auto) 0.5, Neutrophils (%) (Auto) 86.2H, Lymphocytes (%) (Auto) 7.7L, Monocytes (%) (Auto) 4.4, Eosinophils (%) (Auto) 0.7, Basophils (%) (Auto) 0.5, Neutrophils # (Auto) 10.5H, Lymphocytes # (Auto) 0.9L, Monocytes # (Auto) 0.5, Eosinophils # (Auto) 0.1, Basophils # (Auto) 0.1, Nucleated Red Blood Cells % (auto) 0.0, Anion Gap 9, Glomerular Filtration Rate > 60.0, Lactic Acid Level 1.3, Calcium Level 8.5L, Total Bilirubin < 0.1L, Direct Bilirubin < 0.1, Aspartate Amino Transf (AST/SGOT) 20, Alanine Aminotransferase (ALT/SGPT) 19, Alkaline Phosphatase 172H, Total Creatine Kinase 37, Creatine Kinase MB 1.1, Creatine Kinase MB Relative Index 2.97, Troponin I < 0.02, C-Reactive Protein, Quantitative 14.50H, Total Protein 6.6, Albumin 2.2L, Albumin/Globulin Ratio 0.50L, Influenza Type A (RT-PCR) NEGATIVE, Influenza Type B (RT-PCR) NEGATIVE CBC/BMP Laboratory Tests 03/15/19 16:01 Microbiology Microbiology 03/15/19 Blood Culture, Received Pending 03/15/19 Blood Culture, Received Pending Home Medications Scheduled Carvedilol (Carvedilol) 6.25 Mg Tab, 6.25 MG PO BID HAS NOT BEEN TAKING DUE TO LOW BLOOD PRESSURE Lisinopril (Lisinopril) 5 Mg Tab, 5 MG PO QHS HAS NOT BEEN TAKING DUE TO LOW BLOOD PRESSURE Potassium Chloride (Potassium Chloride) 10 Meq Tab.er.prt, 40 MEQ PO BID HAS BEEN TAKING OFF AND ON Scheduled PRN Aspirin/Acetaminophen/Caffeine (Excedrin Migraine Caplet) 1 Each Tablet, 2 TAB- CAP PO DAILY PRN for HEADACHE Diphenoxylate HCl/Atropine (Diphenoxylate-Atrop 2.5-0.025) 1 Each Tablet, 1 TAB PO BID PRN for DIARRHEA Tizanidine HCl (Tizanidine HCl) 2 Mg Capsule, 2 MG PO TID PRN for SPASMS Allergies Coded Allergies: No Known Allergies (Unverified , 12/21/18) GME ATTESTATION GME ATTESTATION My faculty preceptor for this patient encounter was physically present during the encounter and was fully available. All aspects of the patient interview, examination, medical decision making process, and medical care plan development were reviewed and approved by the faculty preceptor. The faculty preceptor is aware and concurs with the plan as stated in the body of this note and will attest to such by his/her cosignature. ATTENDING NOTE I, Amadou Cardoso, have independently examined this patient and performed my own physical exam, as well as reviewed the documentation and edited where necessary. I have discussed in detail with the resident / student the findings and plan of treatment as documented by the resident / student and edited their note. I agree with their findings and treatment plan and have edited their documentation. I will continue to follow the patient during this hospital stay. HARMONY CROWLEY DO Mar 15, 2019 22:39 AMADOU CARDOSO MD Mar 16, 2019 06:06
[2019-03-15] MEDS ORDERED: PILL CUTTER 1 EACH XX PRN (22:45)
--- NOTE | 2019-03-15 23:15 | REPVR ---
PROCEDURE INFORMATION: Exam: MR Pelvis Without and With Contrast Exam date and time: 03/15/2019 10:26 PM Age: 58 years old Clinical indication: Cellulitis; Buttock; Additional info: Refractory osteomyelitis of the coccyx TECHNIQUE: Imaging protocol: Magnetic resonance images of the pelvis without and with intravenous contrast. Contrast material: PROHANCE; Contrast volume: 10 ml; Contrast route: IV; COMPARISON: No relevant prior studies available. FINDINGS: Limitations: Motion artifact degrades image quality of all of the sequences obtained. Stomach and bowel: The stomach was not imaged. The visualized portions of the small and large bowel are unremarkable. Intraperitoneal space: No free fluid is seen in the pelvis. Bladder: The imaged portion of the distended urinary bladder is unremarkable. Reproductive: The anteverted uterus and ovaries are unremarkable. Lymph nodes: No enlarged lymph nodes. Bones/joints: There is abnormally decreased T1 signal, increased T2 signal, and enhancement involving the sacrum and remaining portion of the coccyx beginning at the S2 level. Portions of the sacrum and coccyx are absent. There are degenerative changes in the lower lumbar spine. Soft tissues: There is a soft tissue defect posterior to the sacrum and coccyx, which is compatible with a large decubitus ulcer that extends down to the level of the bone. There is soft tissue edema and enhancement around the decubitus ulcer, which is compatible with cellulitis. There is increased T2 signal and enhancement involving the bilateral piriformis and gluteal muscles, which is compatible with myositis. No drainable rim enhancing soft tissue fluid collection is noted to suggest an abscess. IMPRESSION: Large decubitus ulcer in the sacrococcygeal region extending down to the level of the bone with associated osteomyelitis involving the sacrum and coccyx and surrounding cellulitis and myositis. No abscess. Electronically signed by: Andrea Toure On 03/15/2019 23:14:57 PM
--- NOTE | 2019-03-15 23:24 | PHACANCOPD ---
PHARMACY VANCOMYCIN DOSING Pt Demographics Demographics Patient Age:58 , Weight:53.640 , Gender: female Adjusted Body Weight Events Past 24 Hours Events Past 24 Hours: NO: Dialysis, Diuretic Therapy, Change in CrCl, Fever, Elevation in WBC, Pending Diagnostics, Pending Procedures, Other Vancomycin Vancomycin Target Ranges: 15-20 mcg/ml Vancomycin Load Y/N: Yes Load Dose Date Time Vancomycin Load Dose: 1GM Date: 03/15/19 Time: SCHEDULED FOR 22:00 Vancomycin Dose Date: 03/16/19. Current Vancomycin Dose: [750MG IV Q12H starting @6AM] Intermittent Dosing?: No Labs Labs Laboratory Tests 03/15/19 16:01 Micro Microbiology 03/15/19 Blood Culture, Received Pending 03/15/19 Blood Culture, Received Pending Creatinine Clearance Date:03/15/19. Creatinine Clearance: [>60ml/min]. Assessment and Plan Maintaining Current Dose?: Yes Reason for dose change: No Dose Change Pharmacist Note Pharmacist Note [facility] Mar 15, 2019 23:23
[2019-03-15] MEDS: PIPERACILLIN/TAZOBACTAM SOD 3.375 GM in D5W MINI-BAG PLUS 50 ML IV SCH (23:33)
[2019-03-16] MEDS: CARVedilol 6.25 MG TAB PO SCH ×3 (01:18→20:24)
[2019-03-16] MEDS: HEPARIN SOD (PORCINE) 5000UNITS/ML VIAL (J1644 PER 1000UNITS) SC SCH ×3 (01:19→20:06)
[2019-03-16] MEDS: lisinopriL 5 MG TAB PO SCH ×2 (01:19→20:25)
[2019-03-16] MEDS: POTASSIUM CHLORIDE 10 MEQ SR TABLET PO SCH ×3 (01:19→20:06)
[2019-03-16 02:22] VITALS: BP 125/74
[2019-03-16] MEDS: PIPERACILLIN/TAZOBACTAM SOD 3.375 GM in D5W MINI-BAG PLUS 50 ML IV SCH ×4 (03:27→20:07)
[2019-03-16] MEDS: VANCOMYCIN HCL 750 MG, VIAL MATE ADAPTER 1 EACH in D5W 250 ML IV SCH ×2 (06:23→17:41)
[2019-03-16 06:52] VITALS: BP 125/60
[2019-03-16 07:24] LABS: HEMATOCRIT 23.3 % (36.0-47.0); MEAN CORPUSCULAR HEMOGLOBIN 28.6 pg (27.0-33.0); MEAN CORPUSCULAR VOLUME 95.1 fl (80.0-96.0); RED BLOOD COUNT 2.45 10^6/uL (4.00-5.40); WHITE BLOOD COUNT 11.4 10^3/uL (4.0-10.0)
[2019-03-16 07:28] LABS: PLATELET COUNT, AUTOMATED 761 10^3/uL (150-450)
[2019-03-16 07:52] LABS: BLOOD UREA NITROGEN 13 MG/DL (7-18); CALCIUM LEVEL 8.1 MG/DL (8.8-10.2); CARBON DIOXIDE LEVEL 25 MEQ/L (21-32); CHLORIDE LEVEL 104 MEQ/L (98-107); CREATININE FOR GFR 0.63 MG/DL (0.55-1.30); GLOMERULAR FILTRATION RATE > 60.0 (>45); GLUCOSE, FASTING 115 MG/DL (70-100); MAGNESIUM LEVEL 2.3 MG/DL (1.8-2.4); POTASSIUM SERUM 4.4 MEQ/L (3.5-5.1); SODIUM LEVEL 136 MEQ/L (136-145)
[2019-03-16 08:27] LABS: ERYTHROCYTE SEDIMENTATION RATE 127 mm/hr (0-30)
[2019-03-16 10:00] VITALS: BP 102/57
--- NOTE | 2019-03-16 10:58 | IPNPDOC ---
Subjective Date Seen The patient was seen on 03/16/19. Subjective Chief Complaint/HPI Patient complaining of generalized tired, fatigue and not feeling good General: Denies: ROS Unobtainable, Chills, Night Sweats, Fatigue, Malaise, Normal Appetite, Other Symptoms Constitutional: Denies: Chills, Fever, Malaise, Night Sweats, Weakness, Fatigue, Weight Loss, Lethargy, Other Skin: Reports: Other ( wound VAC at the sacral area) Pulmonary: Denies: Dyspnea, Cough, Pleuritic Chest Pain, Other Symptoms Cardiovascular: Denies: Chest Pain, Palpitations, Orthopnea, Paroxysmal Noc. Dyspnea, Edema, Lt Headedness, Other Symptoms Gastrointestinal: Denies: Nausea, Vomiting, Abdominal Pain, Diarrhea, Consti pation, Melena, Hematochezia, Other Symptoms Musculoskeletal: Denies: Neck Pain, Back Pain, Shoulder Pain, Arm Pain, Hand Pain, Leg Pain, Foot Pain, Joint Pain, Muscle Pain, Spasms, Other Symptoms Neurological: Denies: Weakness, Numbness, Incoordination, Change in speech, Confusion, Seizures, Other Symptoms Objective Physical Examination General Exam: Positive: Alert, Cooperative Eye Exam: Positive: PERRLA, Conjunctiva & lids normal ENT Exam: Positive: Atraumatic Neck Exam: Positive: Supple Chest Exam: Positive: Clear to auscultation, Normal air movement Heart Exam: Positive: Rate Normal, Normal S1, Normal S2 Abdomen Exam: Positive: Normal bowel sounds, Soft Extremity Exam: Positive: Normal pulses Skin Exam: Positive: Other skin issue (, stage IV sacral decubitus with wound VAC in place since admission) Neuro Exam: Positive: Strength at 5/5 X4 ext Psych Exam: Positive: Mental status NL, Oriented x 3 Assessment /Plan Problems (1) Decubitus skin ulcer Status: Acute Problem Text: Stage IV sacral decubitus ulcer, present since admission with wound VAC in place by Dr. Dr. Gomez Has been started on vancomycin and Zosyn. Patient does have a history of positive osteomyelitis, treated for 6 weeks of IV antibiotics as outpatient was called for ID consultation I also put a request for for plastic surgery consult this morning Continue all home meds A.m. level work (2) Anemia Status: Acute Problem Text: Patient's hemoglobin is 7.0. We will repeat hemoglobin A 12:00 to confirm it then possibly transfuse 2 units of PRBC today Aurelia does have a history of a chronic anemia Repeat H&H in a.m. (3) Multiple sclerosis Status: Acute Problem Text: Continue home meds Wheelchair-bound (4) HTN (hypertension) Status: Chronic Problem Text: Continue home meds Plan/VTE VTE Prophylaxis Ordered?: Yes VS, I&O, 24H, Fishbone Vital Signs/I&O Vital Signs Date Time Temp Pulse Resp B/P (MAP) Pulse Ox O2 Delivery O2 Flow Rate FiO2 03/16/19 08:40 95 125/60 03/16/19 06:52 99.6 18 97 Room Air I&O- Last 24 Hours up to 6 AM 03/16/19 06:00 Intake Total 350 ml Balance 350 ml Laboratory Data 24H LABS Laboratory Tests 2 03/15/19 16:01: Immature Granulocyte % (Auto) 0.5, Neutrophils (%) (Auto) 86.2H, Lymphocytes (%) (Auto) 7.7L, Monocytes (%) (Auto) 4.4, Eosinophils (%) (Auto) 0.7, Basophils (%) (Auto) 0.5, Neutrophils # (Auto) 10.5H, Lymphocytes # (Auto) 0.9L, Monocytes # (Auto) 0.5, Eosinophils # (Auto) 0.1, Basophils # (Auto) 0.1, Nucleated Red Blood Cells % (auto) 0.0, Anion Gap 9, Glomerular Filtration Rate > 60.0, Lactic Acid Level 1.3, Calcium Level 8.5L, Total Bilirubin < 0.1L, Direct Bilirubin < 0.1, Aspartate Amino Transf (AST/SGOT) 20, Alanine Aminotransferase (ALT/SGPT) 19, Alkaline Phosphatase 172H, Total Creatine Kinase 37, Creatine Kinase MB 1.1, Creatine Kinase MB Relative Index 2.97, Troponin I < 0.02, C-Reactive Protein, Q uantitative 14.50H, Total Protein 6.6, Albumin 2.2L, Albumin/Globulin Ratio 0.50L, Influenza Type A (RT-PCR) NEGATIVE, Influenza Type B (RT-PCR) NEGATIVE 03/16/19 07:10: Nucleated Red Blood Cells % (auto) 0.0, Anion Gap 7L, Glomerular Filtration Rate > 60.0, Calcium Level 8.1L, C-Reactive Protein, Quantitative 14.30H, Erythrocyte Sedimentation Rate 127H, Magnesium Level 2.3 CBC/BMP Laboratory Tests 03/15/19 16:01 03/16/19 07:10 Microbiology Microbiology 03/15/19 Blood Culture, Received Pending 03/15/19 Blood Culture, Received Pending ABDIAS MCKEON MD Mar 16, 2019 10:58
[2019-03-16 11:50] LABS: BASO # 0.1 10^3/uL (0.0-0.2); EOS # 0.1 10^3/uL (0.0-0.5); EOS % 0.7 % (0.0-3.0); HEMATOCRIT 22.1 % (36.0-47.0); LYMPH # 1.7 10^3/uL (1.5-5.0); LYMPH % 14.1 % (24.0-44.0); MEAN CORPUSCULAR HEMOGLOBIN 28.8 pg (27.0-33.0); MEAN CORPUSCULAR HGB CONC 30.8 g/dl (32.0-36.5); MEAN CORPUSCULAR VOLUME 93.6 fl (80.0-96.0); MONO # 0.9 10^3/uL (0.0-0.8); MONO % 7.2 % (0.0-5.0); NEUTROPHILS # 9.3 10^3/uL (1.5-8.5); NEUTROPHILS % 76.5 % (36.0-66.0); PLATELET COUNT, AUTOMATED 803 10^3/uL (150-450); RED BLOOD COUNT 2.36 10^6/uL (4.00-5.40); WHITE BLOOD COUNT 12.1 10^3/uL (4.0-10.0)
[2019-03-16 11:55] LABS: HEMOGLOBIN 6.8 g/dl (12.0-15.5)
[2019-03-16 14:00] VITALS: BP 99/53
[2019-03-16] MEDS: ACETAMINOPHEN TAB 650MG DOSE (2X325MG) PO PRN ×2 (14:56→20:07)
--- NOTE | 2019-03-16 15:56 | CR.PDOC ---
Plastic Surgery Consultation Date of Consultation 03/16/19 History and Physical CONSULT REPORT FOR: Medical Service REASON FOR CONSULTATION: Sacral wound HISTORY OF PRESENT ILLNESS: 58 y/o female with h/o MS, chronic sacral wound, s/p local flap closure of the wound in November 2018 which failed. Patient was diagnosed with osteomyelitis of the sacrum, treated with antibiotics 6 weeks. Now she developed a new fever at home and brought into the ER for evaluation. She has sensation in the sacral area. No drainage. No odor. Patient is compliant with the wound care with the wound care clinic. PAST MEDICAL HISTORY: 1. Multiple sclerosis 2. Hypertension. 3. Sacral osteomyelitis with failed sacral flap at [facility] 12/14/2018, repleted 6 weeks of antibiotics (Vanco and Zosyn) 4. History of right hip fracture s/p ORIF 5. History of lower extremity edema Past Surgical History: 1. Failed sacral flap repair 2018 2. Hip fracture repair 2015 ALLERGIES: Please see below. FAMILY HISTORY: non contributory. HOME MEDICATIONS: Please see below. REVIEW OF SYSTEMS: GENERAL: Denies chills, reports weight gain, reports feeling febrile yesterday. HEENT: Denies blurred vision and double vision. Denies ear symptoms. Denies hoarseness. NECK: Denies any neck pain]. CARDIOVASCULAR: Denies chest pain and palpitations. MUSCULOSKELETAL: Denies arthralgias, back pain and thrombophlebitis. SKIN: Denies rash. Stage 4 sacral wound NEUROLOGIC: Denies headache, stroke and transient ischemic attack. MS+ PSYCHIATRIC: Denies anxiety and depression. ENDOCRINE: Denies thyroid disease. HEMATOLOGY/ONCOLOGY: Denies bleeding or clotting disorder. HEART: Denies any chest pains, palpitations, paroxysmal dyspnea, orthopnea. PULMONARY: Denies chronic cough, dyspnea and wheezing. GASTROINTESTINAL: Denies rectal bleeding, family history of colon cancer, constipation, diarrhea, dysphagia, heartburn and jaundice. GENITOURINARY: Denies dysuria, frequency, hematuria and nocturia. ENDOCRINE: Denies polydipsia, polyphagia, polyuria, heat or cold intolerance. INFECTIOUS: Denies any recent upper respiratory tract infection, UTI, need for use of antibiotics. NUTRITION: Reports good appetite. PHYSICAL EXAMINATION: VITALS SIGNS: Please see below. GENERAL APPEARANCE:Patient seen, laying in bed, awake, alert, and oriented. Comfortable, in no acute distress. SKIN: Warm and moist. Sacral wound stage 4: 7x7.5x2cm. Bone palpable. Undermining 6 cm at 2 o'clock. No purulence, no drainage, no odor. HEENT: Normocephalic, atraumatic. Abram palpebral conjunctiva, anicteric sclerae. Lips and mucosa appear moist. NECK: Supple, no thyromegaly. No obvious jugular venous distention. LUNGS: Clear to auscultation bilaterally. No wheezing appreciated. HEART: No chest wall abnormalities. Regular rate and rhythm with no murmurs appreciated. ABDOMEN: Abdomen is soft, NT/ND LABORATORY DATA: Please see below. IMPRESSION AND PLAN: Sacral wound stage 4 No visible active infection of the soft tissue. Wound vac changed with [place] foam. Cultures taken today. Start with antibiotics. Consider transfusion for low H&H. No surgical intervention at this time. We will reexamine the patient on at wound vac change. Findings discussed with medical team and patient. Vital Signs Vital Signs Date Time Temp Pulse Resp B/P (MAP) Pulse Ox O2 Delivery O2 Flow Rate FiO2 03/16/19 14:00 101.7 107 18 99/53 (68) 95 Room Air I&Os I&O- Last 24 Hours up to 6 AM 03/16/19 06:00 Intake Total 350 ml Balance 350 ml Laboratory Data Labs 24H Laboratory Tests 2 03/15/19 16:01: Immature Granulocyte % (Auto) 0.5, Neutrophils (%) (Auto) 86.2H, Lymphocytes (%) (Auto) 7.7L, Monocytes (%) (Auto) 4.4, Eosinophils (%) (Auto) 0.7, Basophils (%) (Auto) 0.5, Neutrophils # (Auto) 10.5H, Lymphocytes # (Auto) 0.9L, Monocytes # (Auto) 0.5, Eosinophils # (Auto) 0.1, Basophils # (Auto) 0.1, Nucleated Red Blood Cells % (auto) 0.0, Anion Gap 9, Glomerular Filtration Rate > 60.0, Lactic Acid Level 1.3, Calcium Level 8.5L, Total Bilirubin < 0.1L, Direct Bilirubin < 0.1, Aspartate Amino Transf (AST/SGOT) 20, Alanine Aminotransferase (ALT/SGPT) 19, Alkaline Phosphatase 172H, Total Creatine Kinase 37, Creatine Kinase MB 1.1, Creatine Kinase MB Relative Index 2.97, Troponin I < 0.02, C-Reactive Protein, Quantitative 14.50H, Total Protein 6.6, Albumin 2.2L, Albumin/Globulin Ratio 0.50L, Influenza Type A (RT-PCR) NEGATIVE, Influenza Type B (RT-PCR) NEGATIVE 03/16/19 07:10: Nucleated Red Blood Cells % (auto) 0.0, Anion Gap 7L, Glomerular Filtration Rate > 60.0, Calcium Level 8.1L, C-Reactive Protein, Quantitative 14.30H, Erythrocyte Sedimentation Rate 127H, Magnesium Level 2.3 03/16/19 11:36: Immature Granulocyte % (Auto) 0.5, Neutrophils (%) (Auto) 76.5H, Lymphocytes (%) (Auto) 14.1L, Monocytes (%) (Auto) 7.2H, Eosinophils (%) (Auto) 0.7, Basophils (%) (Auto) 1.0, Neutrophils # (Auto) 9.3H, Lymphocytes # (Auto) 1.7, Monocytes # (Auto) 0.9H, Eosinophils # (Auto) 0.1, Basophils # (Auto) 0.1, Nucleated Red Blood Cells % (auto) 0.0 CBC/BMP Laboratory Tests 03/15/19 16:01 03/16/19 07:10 03/16/19 11:36 Microbiology Microbiology 03/16/19 Wound Culture, Received Pending 03/15/19 Blood Culture, Received Pending 03/15/19 Blood Culture, Received Pending Home Medications Scheduled Carvedilol (Carvedilol) 6.25 Mg Tab, 6.25 MG PO BID, (Reported) HAS NOT BEEN TAKING DUE TO LOW BLOOD PRESSURE Lisinopril (Lisinopril) 5 Mg Tab, 5 MG PO QHS, (Reported) HAS NOT BEEN TAKING DUE TO LOW BLOOD PRESSURE Potassium Chloride (Potassium Chloride) 10 Meq Tab.er.prt, 40 MEQ PO BID, (Reported) HAS BEEN TAKING OFF AND ON Scheduled PRN Aspirin/Acetaminophen/Caffeine (Excedrin Migraine Caplet) 1 Each Tablet, 2 TAB- CAP PO DAILY PRN for HEADACHE, (Reported) Diphenoxylate HCl/Atropine (Diphenoxylate-Atrop 2.5-0.025) 1 Each Tablet, 1 TAB PO BID PRN for DIARRHEA, (Reported) Tizanidine HCl (Tizanidine HCl) 2 Mg Capsule, 2 MG PO TID PRN for SPASMS, (Reported) Allergies Coded Allergies: No Known Allergies (Unverified , 12/21/18) TERESA KNIGHT DO Mar 16, 2019 15:56
--- NOTE | 2019-03-16 17:51 | CR.PDOC ---
General Date of Consultation: Mar 16, 2019 Attending Physician: Marya Hua MD Consultation REASON FOR CONSULTATION/CHIEF COMPLAINT: Decubitus sacral ulcer HISTORY OF PRESENT ILLNESS: Patient is 58-year-old female who presents to the emergency department increasing fevers and weakness for the last 1-2 days. Patient does carry a past medical history of stage IV decubitus sacral ulcer, status post failed flap at [facility] in 12/12 and status post 6 weeks of IV antibiotics vancomycin and Zosyn. Prior to presentation emergency department, patient was found to have a MAXIMUM TEMPERATURE of 102 and advised by home health care nurse to present ED for further evaluation. She stated that she was unable to lift herself up from her wheelchair and completely transfers, as she normally is able to do so. Patient was last seen in Dr. Gomez's office last Friday for her wound care. Bone pathology performed on 02/19/2019 was positive for osteomyelitis despite 6 weeks of IV antibiotic treatment. Pelvis MRI positive for a large decubitus ulcer extending to the level of bone with associated osteomyelitis involving both the sacrum, coccyx. Surrounding synovitis and myositis noted without abscess. Infectious disease was consulted and she continued discharged for continued antibiotic therapy. PAST MEDICAL HISTORY: Multiple sclerosis, advanced Hypertension Hip fracture, status post ORIF History of lotion edema PAST SURGICAL HISTORY: Failed sacral flap repair, 12/12 Hip fracture repair, 2015 FAMILY HISTORY: Father: , heart disease, history of unknown cancer, hypertension Mother: History of heart disease, hypertension history of unknown cancer Otherwise family history is non-ambulatory SOCIAL HISTORY: Marital status and/or living arrangements: Single, patient lives alone [place] Employment: Retired/disabled Tobacco use: Patient reports being a lifelong nonsmoker ETOH: Denies any alcohol use Illicit drug use: Patient denies any was a drug use CODE STATUS: Full code REVIEW OF SYSTEMS: CONSTITUTIONAL: Patient reports 2 day history of increasing fever and weakness. Denies any weight loss, increasing fatigue or changes in weight HEENT: Denies any headaches, changes in vision, changes in hearing, numbness co ngestion or rhinorrhea. No sore throat or difficulty swallowing. CARDIOVASCULAR: Denies any chest pain, palpitations or appropriate tachycardia RESPIRATORY: Denies any difficulty breathing, no recent cough or wheeze MUSCULOSKELETAL: Denies any new onset muscle aches, does report a 2 day history of increasing weakness GASTROINTESTINAL: Denies any nausea or vomiting, no abdominal pain. Patient is largely incontinent SKIN: Persistent sacral decubitus ulcer, increasing pain and discomfort, follows with Dr. Gomez for wound care NEUROLOGICAL: History of multiple sclerosis, reports difficulty transferring to wheelchair PHYSICAL EXAMINATION: VITAL SIGNS: Please see below. GENERAL APPEARANCE: Patient was interviewed and examined in her hospital bed. Patient was found to be resting comfortably in bed on her right side. She was able to answer questions about her medical condition appropriately. He is able to participate in her care. HEENT: Normal cephalic, atraumatic EOMI, moist membranes, no JVD noted RESPIRATORY: Clear to auscultation bilaterally, no wheezing rales or rhonchi CARDIOVASCULAR: Regular rate and rhythm, 1/6 systolic murmur appreciated intercostal space on left side. No other murmurs gallops or rubs ABDOMEN: Soft, nontender, nondistended, no organomegaly or palpable masses EXTREMITIES: Patient does have hypertonic and contracted lower extremities bilaterally. No lower extremity edema, distal pulses 2+ both radially and posterior tibial NEUROLOGICAL: Patient is awake and alert PSYCHIATRIC: Mood and affect are appropriate given current medical condition SKIN: Stage IV sacral decubitus ulcer measuring approximately 7.5 cm x 7 cm. Previous flap with undermining of approximate 6 cm at 2 o'clock. Bone noted. Patient retains sensation in the area. No obvious drainage or odor. LABORATORY DATA: Please see below. ASSESSMENT/PLAN: #Stage IV decubitus sacral ulcer -48 hour history of fevers associated weakness. CRP of 40.3 and a sedimentation rate of 6. Thrombocytosis likely acute phase reactant. Currently receiving vancomycin and Zosyn. -Dr. Judge was consulted me appreciate her assistance in the management of this patient. -Patient's wound VAC was changed today utilizing [place] foam. Plan to reexamine and change wound VAC again on , 03/18/2019. No current indication for op erative management. -Patient on current antibiotic therapy. Wound cultures were collected this after noon. Antibiotics will be adjusted as appropriate pending results. -Long-term plans will likely [facility] with continued wound VAC for patient to receive for MRI more appropriate care. Vital Signs/I&O Vital Signs Date Time Temp Pulse Resp B/P (MAP) Pulse Ox O2 Delivery O2 Flow Rate FiO2 03/16/19 14:00 101.7 107 18 99/53 (68) 95 Room Air I&O- Last 24 Hours up to 6 AM 03/16/19 06:00 Intake Total 350 ml Balance 350 ml Laboratory Data Labs 24H Laboratory Tests 2 03/16/19 07:10: Nucleated Red Blood Cells % (auto) 0.0, Erythrocyte Sedimentation Rate 127H, Anion Gap 7L, Glomerular Filtration Rate > 60.0, Calcium Level 8.1L, Magnesium Level 2.3, C-Reactive Protein, Quantitative 14.30H 03/16/19 11:36: Nucleated Red Blood Cells % (auto) 0.0, Immature Granulocyte % (Auto) 0.5, Neutrophils (%) (Auto) 76.5H, Lymphocytes (%) (Auto) 14.1L, Monocytes (%) (Auto) 7.2H, Eosinophils (%) (Auto) 0.7, Basophils (%) (Auto) 1.0, Neutrophils # (Auto) 9.3H, Lymphocytes # (Auto) 1.7, Monocytes # (Auto) 0.9H, Eosinophils # (Auto) 0.1, Basophils # (Auto) 0.1 CBC/BMP Laboratory Tests 03/16/19 07:10 03/16/19 11:36 Microbiology Microbiology 03/16/19 Wound Culture, Received Pending 03/15/19 Blood Culture, Received Pending 03/15/19 Blood Culture - Preliminary, Resulted No growth after 24 hours . All specim... Allergies Coded Allergies: No Known Allergies (Unverified , 12/21/18) Home Medications Scheduled Carvedilol (Carvedilol) 6.25 Mg Tab, 6.25 MG PO BID, (Reported) HAS NOT BEEN TAKING DUE TO LOW BLOOD PRESSURE Lisinopril (Lisinopril) 5 Mg Tab, 5 MG PO QHS, (Reported) HAS NOT BEEN TAKING DUE TO LOW BLOOD PRESSURE Potassium Chloride (Potassium Chloride) 10 Meq Tab.er.prt, 40 MEQ PO BID, (R eported) HAS BEEN TAKING OFF AND ON Scheduled PRN Aspirin/Acetaminophen/Caffeine (Excedrin Migraine Caplet) 1 Each Tablet, 2 TAB- CAP PO DAILY PRN for HEADACHE, (Reported) Diphenoxylate HCl/Atropine (Diphenoxylate-Atrop 2.5-0.025) 1 Each Tablet, 1 TAB PO BID PRN for DIARRHEA, (Reported) Tizanidine HCl (Tizanidine HCl) 2 Mg Capsule, 2 MG PO TID PRN for SPASMS, (Reported) GME ATTESTATION GME ATTESTATION My faculty preceptor for this patient encounter was physically present during the encounter and was fully available. All aspects of the patient interview, examination, medical decision making process, and medical care plan development were reviewed and approved by the faculty preceptor. The faculty preceptor is aware and concurs with the plan as stated in the body of this note and will attest to such by his/her cosignature. KAMALA SHAW DO Mar 16, 2019 17:51
[2019-03-16] MEDS: NS 1,000 ML IV SCH (19:00)
[2019-03-16 19:37] VITALS: BP 147/61
[2019-03-16 20:05] VITALS: BP 102/57
--- NOTE | 2019-03-16 20:37 | ECGEPIP ---
[facility] - ED Test Date: 2019-03-15 Pat Name: GAMALIEL VASQUEZ Department: Room: - Gender: Female [employer]sembler: humphrey : 1960 Requested By: Ricky Moore Order Number: [id number] Reading MD: Ricky Garner Measurements Intervals [place] Rate: 122 P: 72 WA: 140 QRS: 65 QRSD: 89 T: 72 QT: 316 QTc: 451 Interpretive Statements SINUS TACHYCARDIA NSTTW ABNORMALITIES RATE CHANGE COMPARED TO 02/01/19 Electronically Signed on 03-16-2019 20:37:17 EST by Ricky Garner
[2019-03-17] VITALS (11 sets, daily range): BP systolic 100–127; BP diastolic 51–72
[2019-03-17] MEDS ORDERED: IBUPROFEN 600 MG TAB PO PRN (00:15)
[2019-03-17] MEDS: ACETAMINOPHEN TAB 650MG DOSE (2X325MG) PO PRN ×2 (01:45→15:45)
[2019-03-17] MEDS: PIPERACILLIN/TAZOBACTAM SOD 3.375 GM in D5W MINI-BAG PLUS 50 ML IV SCH ×4 (03:50→20:14)
[2019-03-17] MEDS: VANCOMYCIN HCL 750 MG, VIAL MATE ADAPTER 1 EACH in D5W 250 ML IV SCH (05:31)
[2019-03-17 05:32] LABS: MEAN CORPUSCULAR HEMOGLOBIN 28.7 pg (27.0-33.0); MEAN CORPUSCULAR VOLUME 95.7 fl (80.0-96.0); PLATELET COUNT, AUTOMATED 749 10^3/uL (150-450); WHITE BLOOD COUNT 10.9 10^3/uL (4.0-10.0)
[2019-03-17 05:38] LABS: HEMOGLOBIN 6.6 g/dl (12.0-15.5)
[2019-03-17 05:58] LABS: BLOOD UREA NITROGEN 14 MG/DL (7-18); CALCIUM LEVEL 8.6 MG/DL (8.8-10.2); CARBON DIOXIDE LEVEL 24 MEQ/L (21-32); CHLORIDE LEVEL 108 MEQ/L (98-107); CREATININE FOR GFR 0.76 MG/DL (0.55-1.30); GLOMERULAR FILTRATION RATE > 60.0 (>45); GLUCOSE, FASTING 98 MG/DL (70-100); MAGNESIUM LEVEL 2.5 MG/DL (1.8-2.4); POTASSIUM SERUM 4.7 MEQ/L (3.5-5.1); SODIUM LEVEL 140 MEQ/L (136-145); VANCOMYCIN LEVEL TROUGH 12.5 UG/ML (10.0-20.0)
[2019-03-17] MEDS ORDERED: IBUPROFEN 600 MG TAB PO ONE (07:30)
[2019-03-17] MEDS: POTASSIUM CHLORIDE 10 MEQ SR TABLET PO SCH ×2 (08:12→20:14)
[2019-03-17] MEDS: HEPARIN SOD (PORCINE) 5000UNITS/ML VIAL (J1644 PER 1000UNITS) SC SCH ×2 (08:12→20:14)
[2019-03-17] MEDS: CARVedilol 6.25 MG TAB PO SCH ×2 (08:16→20:14)
--- NOTE | 2019-03-17 11:17 | IPNPDOC ---
Subjective Date Seen The patient was seen on 03/17/19. Subjective Chief Complaint/HPI Patient is still complaining of some pain at the wound site on sacrum, was seen by . General: Denies: ROS Unobtainable, Chills, Night Sweats, Fatigue, Malaise, Normal Appetite, Other Symptoms Constitutional: Denies: Chills, Fever, Malaise, Night Sweats, Weakness, Fatigue, Weight Loss, Lethargy, Other Skin: Reports: Other (pain at the surgical wound) Pulmonary: Denies: Dyspnea, Cough, Pleuritic Chest Pain, Other Symptoms Cardiovascular: Denies: Chest Pain, Palpitations, Orthopnea, Paroxysmal Noc. Dyspnea, Edema, Lt Headedness, Other Symptoms Gastrointestinal: Denies: Nausea, Vomiting, Abdominal Pain, Diarrhea, Constipation, Melena, Hematochezia, Other Symptoms Musculoskeletal: Denies: Neck Pain, Back Pain, Shoulder Pain, Arm Pain, Hand Pain, Leg Pain, Foot Pain, Joint Pain, Muscle Pain, Spasms, Other Symptoms Neurological: Denies: Weakness, Numbness, Incoordination, Change in speech, Confusion, Seizures, Other Symptoms Objective Physical Examination ENT Exam: Positive: Atraumatic Neck Exam: Positive: Supple Chest Exam: Positive: Clear to auscultation, Normal air movement Heart Exam: Positive: Rate Normal, Normal S1, Normal S2 Abdomen Exam: Positive: Normal bowel sounds, Soft Extremity Exam: Positive: Normal pulses Skin Exam: Positive: Other skin issue (, stage IV sacral decubitus with wound VAC in place since admission) Neuro Exam: Positive: Strength at 5/5 X4 ext Assessment /Plan Problems (1) Decubitus skin ulcer Status: Acute Problem Text: Stage IV sacral decubitus ulcer, present since admission with wound VAC in place by Dr. Dr. Gomez ID consult was called. Official report pending Continue IV vancomycin and Zosyn plastic surgery and surgical consult seen and appreciated No surgical intervention admitted to this time Dr. Judge changed the dressing and wound VAC was applied and she will follow patient tomorrow Continue present care (2) Anemia Status: Acute Problem Text: Patient is scheduled to get transfusion of 2 units of PRBC today as her hemoglobin has been less than 6 Patient was not transfused last night secondary to fever but her fever has broken and her temperature is under 99 Repeat labs in a.m. (3) Multiple sclerosis Status: Acute Problem Text: Continue home meds Wheelchair-bound (4) HTN (hypertension) Status: Chronic Problem Text: Continue home meds Plan/VTE VTE Prophylaxis Ordered?: Yes VS, I&O, 24H, Fishbone Vital Signs/I&O Vital Signs Date Time Temp Pulse Resp B/P (MAP) Pulse Ox O2 Delivery O2 Flow Rate FiO2 03/17/19 10:44 98.6 91 20 110/55 97 Room Air I&O- Last 24 Hours up to 6 AM 03/17/19 05:59 Intake Total 1275 ml Balance 1275 ml Laboratory Data 24H LABS Laboratory Tests 2 03/16/19 11:36: Immature Granulocyte % (Auto) 0.5, Neutrophils (%) (Auto) 76.5H, Lymphocytes (%) (Auto) 14.1L, Monocytes (%) (Auto) 7.2H, Eosinophils (%) (Auto) 0.7, Basophils (%) (Auto) 1.0, Neutrophils # (Auto) 9.3H, Lymphocytes # (Auto) 1.7, Monocytes # (Auto) 0.9H, Eosinophils # (Auto) 0.1, Basophils # (Auto) 0.1, Nucleated Red Blood Cells % (auto) 0.0 03/17/19 05:13: Nucleated Red Blood Cells % (auto) 0.0, Anion Gap 8, Glomerular Filtration Rate > 60.0, Calcium Level 8.6L, Magnesium Level 2.5H, Vancomycin Level Trough 12.5 CBC/BMP Laboratory Tests 03/16/19 11:36 03/17/19 05:13 Microbiology Microbiology 03/16/19 Wound Culture, Received Pending 03/15/19 Blood Culture - Preliminary, Resulted No growth after 24 hours . All specim... 03/15/19 Blood Culture - Preliminary, Resulted No growth after 24 hours . All specim... ABDIAS MCKEON MD Mar 17, 2019 11:17
[2019-03-17] MEDS: NS 1,000 ML IV SCH ×2 (12:41→13:00)
[2019-03-17] MEDS: VANCOMYCIN HCL 1,000 MG, VIAL MATE ADAPTER 1 EACH in D5W 250 ML IV SCH (14:38)
[2019-03-17] MEDS: IBUPROFEN 600 MG TAB PO PRN (18:50)
[2019-03-17] MEDS: lisinopriL 5 MG TAB PO SCH (20:13)
[2019-03-18] MEDS: VANCOMYCIN HCL 1,000 MG, VIAL MATE ADAPTER 1 EACH in D5W 250 ML IV SCH (01:39)
[2019-03-18] MEDS: PIPERACILLIN/TAZOBACTAM SOD 3.375 GM in D5W MINI-BAG PLUS 50 ML IV SCH ×2 (03:35→08:24)
[2019-03-18 06:00] VITALS: BP 127/79
[2019-03-18 06:25] LABS: BASO # 0.1 10^3/uL (0.0-0.2); BASO % 0.7 % (0.0-1.0); EOS # 0.5 10^3/uL (0.0-0.5); EOS % 5.6 % (0.0-3.0); HEMATOCRIT 33.2 % (36.0-47.0); MEAN CORPUSCULAR HEMOGLOBIN 29.9 pg (27.0-33.0); MEAN CORPUSCULAR HGB CONC 31.9 g/dl (32.0-36.5); MEAN CORPUSCULAR VOLUME 93.5 fl (80.0-96.0); MONO # 0.5 10^3/uL (0.0-0.8); MONO % 6.6 % (0.0-5.0); NEUTROPHILS # 6.1 10^3/uL (1.5-8.5); NEUTROPHILS % 74.4 % (36.0-66.0); PLATELET COUNT, AUTOMATED 729 10^3/uL (150-450); RED BLOOD COUNT 3.55 10^6/uL (4.00-5.40); WHITE BLOOD COUNT 8.2 10^3/uL (4.0-10.0)
[2019-03-18 06:31] LABS: HEMOGLOBIN 10.6 g/dl (12.0-15.5)
[2019-03-18 06:57] LABS: ALBUMIN 1.6 GM/DL (3.2-5.2); ALT/SGPT 15 U/L (12-78); BILIRUBIN,TOTAL 0.3 MG/DL (0.2-1.0); BLOOD UREA NITROGEN 9 MG/DL (7-18); CALCIUM LEVEL 8.5 MG/DL (8.8-10.2); CARBON DIOXIDE LEVEL 24 MEQ/L (21-32); CHLORIDE LEVEL 107 MEQ/L (98-107); CREATININE FOR GFR 0.58 MG/DL (0.55-1.30); GLOMERULAR FILTRATION RATE > 60.0 (>45); GLUCOSE, FASTING 89 MG/DL (70-100); MAGNESIUM LEVEL 2.3 MG/DL (1.8-2.4); POTASSIUM SERUM 4.7 MEQ/L (3.5-5.1); SODIUM LEVEL 137 MEQ/L (136-145); TOTAL PROTEIN 6.2 GM/DL (6.4-8.2)
[2019-03-18] MEDS: POTASSIUM CHLORIDE 10 MEQ SR TABLET PO SCH ×2 (08:23→21:47)
[2019-03-18] MEDS: HEPARIN SOD (PORCINE) 5000UNITS/ML VIAL (J1644 PER 1000UNITS) SC SCH ×2 (08:23→21:49)
[2019-03-18] MEDS: CARVedilol 6.25 MG TAB PO SCH ×2 (08:24→21:00)
[2019-03-18] MEDS: IBUPROFEN 600 MG TAB PO PRN (08:25)
[2019-03-18] MEDS ORDERED: LACTOBACILLUS ACIDOPHILUS CAP (BACID) PO SCH (09:00)
--- NOTE | 2019-03-18 12:52 | IPNPDOC ---
Subjective Date Seen The patient was seen on 03/18/19. Subjective Chief Complaint/HPI Patient is comfortable in no distress. Offers no new complaints at the present time General: Denies: ROS Unobtainable, Chills, Night Sweats, Fatigue, Malaise, Normal Appetite, Other Symptoms Constitutional: Denies: Chills, Fever, Malaise, Night Sweats, Weakness, Fatigue, Weight Loss, Lethargy, Other Skin: Denies: Rash, Lesions, Jaundice, Bruising, Itching, Dry, Breakdown, Nail Changes, Other Pulmonary: Denies: Dyspnea, Cough, Pleuritic Chest Pain, Other Symptoms Cardiovascular: Denies: Chest Pain, Palpitations, Orthopnea, Paroxysmal Noc. Dyspnea, Edema, Lt Headedness, Other Symptoms Gastrointestinal: Denies: Nausea, Vomiting, Abdominal Pain, Diarrhea, Constipation, Melena, Hematochezia, Other Symptoms Musculoskeletal: Denies: Neck Pain, Back Pain, Shoulder Pain, Arm Pain, Hand Pain, Leg Pain, Foot Pain, Joint Pain, Muscle Pain, Spasms, Other Symptoms Neurological: Denies: Weakness, Numbness, Incoordination, Change in speech, Confusion, Seizures, Other Symptoms Objective Physical Examination ENT Exam: Positive: Atraumatic Neck Exam: Positive: Supple Chest Exam: Positive: Clear to auscultation, Normal air movement Heart Exam: Positive: Rate Normal, Normal S1, Normal S2 Abdomen Exam: Positive: Normal bowel sounds, Soft Extremity Exam: Positive: Normal pulses Skin Exam: Positive: Other skin issue (, stage IV sacral decubitus with wound VAC in place since admission) Neuro Exam: Positive: Strength at 5/5 X4 ext Assessment /Plan Problems (1) Decubitus skin ulcer Status: Acute Problem Text: Stage IV sacral decubitus ulcer, present since admission with wound VAC in place by Dr. Dr. Gomez Continue Zosyn but will change Vanco to by mouth as patient has concurrent C. difficile infection, will await ID follow-up for further recommendation plastic surgery and surgical consult seen and appreciated No surgical intervention admitted to this time Dr Judge to see the Patient today and change the dressing and continue wound VAC Continue present care (2) Anemia Status: Acute Problem Text: Patient's hemoglobin is 10.6, hematocrit 33.2 after transfusion monitor H&H regularly, and transfuse as needed (3) Multiple sclerosis Status: Acute Problem Text: Continue home meds Wheelchair-bound (4) HTN (hypertension) Status: Chronic Problem Text: Continue home meds (5) Clostridium difficile infection Status: Acute Problem Text: Vancomycin 250 mg by mouth every 6 hours Contact isolation add Bacid Plan/VTE VTE Prophylaxis Ordered?: Yes VS, I&O, 24H, Fishbone Vital Signs/I&O Vital Signs Date Time Temp Pulse Resp B/P (MAP) Pulse Ox O2 Delivery O2 Flow Rate FiO2 03/18/19 08:24 88 144/78 03/18/19 06:00 98.8 17 94 Room Air 03/17/19 11:29 99.0 I&O- Last 24 Hours up to 6 AM 03/18/19 06:00 Intake Total 2025 ml Output Total 0 ml Balance 2025 ml Laboratory Data 24H LABS Laboratory Tests 2 03/18/19 05:52: Immature Granulocyte % (Auto) 0.7, Neutrophils (%) (Auto) 74.4H, Lymphocytes (%) (Auto) 12.0L, Monocytes (%) (Auto) 6.6H, Eosinophils (%) (Auto) 5.6H, Basophils (%) (Auto) 0.7, Neutrophils # (Auto) 6.1, Lymphocytes # (Auto) 1.0L, Monocytes # (Auto) 0.5, Eosinophils # (Auto) 0.5, Basophils # (Auto) 0.1, Nucleated Red Blood Cells % (auto) 0.0, Anion Gap 6L, Glomerular Filtration Rate > 60.0, Calcium Level 8.5L, Magnesium Level 2.3, Total Bilirubin 0.3#, Aspartate Amino Transf (AST/SGOT) 21, Alanine Aminotransferase (ALT/SGPT) 15, Alkaline Phospha tase 180H, Total Protein 6.2L, Albumin 1.6#L, Albumin/Globulin Ratio 0.35L CBC/BMP Laboratory Tests 03/18/19 05:52 Microbiology Microbiology 03/17/19 Gastrointestinal Tract Panel (PCR) - Final, Complete Clostridium Difficile A/B 03/16/19 Wound Culture - Preliminary, Resulted Strep Agalactiae Group B 03/15/19 Blood Culture - Preliminary, Resulted No Growth after 48 hours. All Specime... 03/15/19 Blood Culture - Preliminary, Resulted No Growth after 48 hours. All Specime... ABDIAS MCKEON MD Mar 18, 2019 12:52
[2019-03-18] MEDS: NS 1,000 ML IV SCH (13:08)
[2019-03-18] MEDS: VANCOMYCIN ORAL SOL 250MG/5ML ORAL SYRINGE PO SCH ×2 (13:08→17:16)
[2019-03-18] MEDS: AMPICILLIN SOD/SULBACTAM SOD 1.5 GM in D5W MINI-BAG PLUS 50 ML IV SCH ×2 (13:12→20:00)
[2019-03-18 14:00] VITALS: BP 98/58
[2019-03-18 15:47] VITALS: BP 101/60
[2019-03-18] MEDS: tiZANidine 4 MG TAB PO SCH ×2 (17:16→21:49)
--- NOTE | 2019-03-18 20:19 | IPN ---
DATE: 03/18/2019 Catherine complains of diarrhea and stool incontinence. The patient is complaining also of significant muscle spasms. She has not gotten any of her muscle relaxant and therefore her knees are bent and she is not able to extend them. She has had a fever for the past 48 hours and worsening diarrhea. Stool was sent for Clostridium (C) difficile which was positive. She was seen in consultation by Dr. Judge who did a wound VAC today on her as well. I did not get to see the wound as I was not available in the morning. This afternoon on physical exam she is laying in bed in a position with knees bent. Vital signs are stable. She is afebrile. Heart: Normal S1, S2. No murmurs. Lungs are clear. No wheezes, rales or rhonchi. Abdomen: Soft, nontender. Extremities: No edema. Sacral decubitus has a wound measuring 7 x 7.5 x 2 cm with palpable bone at the sacrum undermining 6 cm at 2 o'clock. There was, according to Dr. Judge, no purulent drainage or odor. A wound VAC was placed. The patient is alert, oriented times three. LABORATORY DATA: White count of 8.2, hemoglobin 10.6, hematocrit 33.2, platelets 729. Her hemoglobin had dropped to 6.6 yesterday. ESR 127. Sodium 137, potassium 4.7, chloride 107, bicarbonate 24, BUN 9, creatinine 0.58, glucose 89, calcium 8.5, magnesium 2.3, AST 21, ALT 15, alkaline phosphatase 180, CRP 14.3, albumin 1.6, total protein 6.2. Sacral decubitus culture is positive for group B Streptococcus and stool PCR was positive for C. difficile. IMAGING STUDIES: Pelvic MRI showed sacral coccygeal osteomyelitis with a large decubitus ulcer, surrounding cellulitis and myositis but no abscess appreciated. IMPRESSION: 1. Sacral coccygeal osteomyelitis. Failed sacral flap at [facility]. Treated with 6 weeks of IV Zosyn. Presents with worsening decubitus. Patient is not able to take care of herself. She is at home sitting most of the time in her chair. She has nurses that come three times a week, this is not enough to help with her care and physical therapy. 2. Multiple sclerosis with significant muscle spasm. The patient will be restarted on her muscle relaxant three times a day, not as needed. She may also benefit from adding baclofen. 3. C. difficile colitis. The patient had been on prolonged antibiotics in the past 6 weeks. I am not surprised that she has C. difficile although she has not had any history prior. She has been started on vancomycin 250 mg every 6 hours. 4. Acute blood loss status post 2 units of blood. Rule out GI bleed. PLAN: Continue with IV Unasyn to cover for group B Streptococcus. Cultures are still pending. Continue by mouth vancomycin for C. difficile colitis. Increase probiotics to twice a day. Continue with wound VAC. I suggested that the patient needs acute rehabilitation or group home placement and this needs to be discussed with PFS. The patient is very reluctant about both issues as she thinks she can recover at home. I told her she already has failed being home for the past 3 months and offloading and being on her own independent ambulatory. The patient will definitely need rehabilitation or group home placement for the next 6 weeks while she needs antibiotic and strengthening.
[2019-03-18] MEDS: LACTOBACILLUS ACIDOPHILUS CAP (BACID) PO SCH ×2 (21:00→21:47)
[2019-03-18] MEDS: lisinopriL 5 MG TAB PO SCH (21:48)
[2019-03-18 22:00] VITALS: BP 106/61
[2019-03-19] MEDS: VANCOMYCIN ORAL SOL 250MG/5ML ORAL SYRINGE PO SCH ×4 (00:44→17:29)
[2019-03-19] MEDS: AMPICILLIN SOD/SULBACTAM SOD 1.5 GM in D5W MINI-BAG PLUS 50 ML IV SCH ×3 (02:47→13:11)
[2019-03-19 06:00] VITALS: BP 137/79
[2019-03-19 06:41] LABS: HEMATOCRIT 31.7 % (36.0-47.0); HEMOGLOBIN 10.3 g/dl (12.0-15.5); MEAN CORPUSCULAR HEMOGLOBIN 29.8 pg (27.0-33.0); MEAN CORPUSCULAR HGB CONC 32.5 g/dl (32.0-36.5); MEAN CORPUSCULAR VOLUME 91.6 fl (80.0-96.0); PLATELET COUNT, AUTOMATED 728 10^3/uL (150-450); RED BLOOD COUNT 3.46 10^6/uL (4.00-5.40); WHITE BLOOD COUNT 6.8 10^3/uL (4.0-10.0)
[2019-03-19 07:04] LABS: BLOOD UREA NITROGEN 7 MG/DL (7-18); C REACTIVE PROTEIN QUANTITATIV 5.58 MG/DL (0.00-0.30); CALCIUM LEVEL 8.2 MG/DL (8.8-10.2); CARBON DIOXIDE LEVEL 26 MEQ/L (21-32); CHLORIDE LEVEL 104 MEQ/L (98-107); CREATININE FOR GFR 0.52 MG/DL (0.55-1.30); GLOMERULAR FILTRATION RATE > 60.0 (>45); GLUCOSE, FASTING 84 MG/DL (70-100); MAGNESIUM LEVEL 2.3 MG/DL (1.8-2.4); SODIUM LEVEL 136 MEQ/L (136-145)
[2019-03-19] MEDS: LACTOBACILLUS ACIDOPHILUS CAP (BACID) PO SCH ×2 (08:56→21:35)
[2019-03-19] MEDS: tiZANidine 4 MG TAB PO SCH ×3 (08:56→21:35)
[2019-03-19] MEDS: POTASSIUM CHLORIDE 10 MEQ SR TABLET PO SCH ×2 (08:56→21:35)
[2019-03-19] MEDS: HEPARIN SOD (PORCINE) 5000UNITS/ML VIAL (J1644 PER 1000UNITS) SC SCH ×2 (08:57→21:35)
[2019-03-19] MEDS: CARVedilol 6.25 MG TAB PO SCH ×2 (09:00→21:34)
[2019-03-19] MEDS: EXCEDRIN MIGRAINE TABLET PO PRN (09:01)
--- NOTE | 2019-03-19 12:40 | IPNPDOC ---
Subjective Date Seen The patient was seen on 03/19/19. Subjective Chief Complaint/HPI Precious is comfortable offers no new complaints. Willing to go to rehabilitation after discharge on the hospital General: Denies: ROS Unobtainable, Chills, Night Sweats, Fatigue, Malaise, Normal Appetite, Other Symptoms Constitutional: Denies: Chills, Fever, Malaise, Night Sweats, Weakness, Fatigue, Weight Loss, Lethargy, Other Pulmonary: Denies: Dyspnea, Cough, Pleuritic Chest Pain, Other Symptoms Cardiovascular: Denies: Chest Pain, Palpitations, Orthopnea, Paroxysmal Noc. Dyspnea, Edema, Lt Headedness, Other Symptoms Gastrointestinal: Denies: Nausea, Vomiting, Abdominal Pain, Diarrhea, Constipation, Melena, Hematochezia, Other Symptoms Musculoskeletal: Denies: Neck Pain, Back Pain, Shoulder Pain, Arm Pain, Hand Pain, Leg Pain, Foot Pain, Joint Pain, Muscle Pain, Spasms, Other Symptoms Neurological: Denies: Weakness, Numbness, Incoordination, Change in speech, Confusion, Seizures, Other Symptoms Objective Physical Examination ENT Exam: Positive: Atraumatic Neck Exam: Positive: Supple Chest Exam: Positive: Clear to auscultation, Normal air movement Heart Exam: Positive: Rate Normal, Normal S1, Normal S2 Abdomen Exam: Positive: Normal bowel sounds, Soft Extremity Exam: Positive: Normal pulses Skin Exam: Positive: Other skin issue (, stage IV sacral decubitus with wound VAC in place since admission) Neuro Exam: Positive: Strength at 5/5 X4 ext Assessment /Plan Problems (1) Decubitus skin ulcer Status: Acute Problem Text: Stage IV sacral decubitus ulcer, present since admission with wound VAC in place by Dr. Dr. Gomez Continue Zosyn but will change Vanco to by mouth as patient has concurrent C. difficile infection, will await ID follow-up for further recommendation plastic surgery and surgical consult seen and appreciated No surgical intervention admitted to this time Dressing change yesterday by plastic surgery Patient's wound shows a Streptococcus for which she has been started on Unasyn ID follow-up appreciated, and agree with the above plan And will probably go to rehabilitation facility once discharged (2) Anemia Status: Acute Problem Text: Patient's hemoglobin is 10.6, hematocrit 33.2 after transfusion monitor H&H regularly, and transfuse as needed (3) Multiple sclerosis Status: Acute Problem Text: Continue home meds Wheelchair-bound (4) HTN (hypertension) Status: Chronic Problem Text: Continue home meds (5) Clostridium difficile infection Status: Acute Problem Text: As per patient, had 1 LBM yesterday Vancomycin 250 mg by mouth every 6 hours Contact isolation add Bacid Plan/VTE VTE Prophylaxis Ordered?: Yes VS, I&O, 24H, Fishbone Vital Signs/I&O Vital Signs Date Time Temp Pulse Resp B/P (MAP) Pulse Ox O2 Delivery O2 Flow Rate FiO2 03/19/19 09:00 85 137/79 03/19/19 06:00 99.0 18 95 Room Air 03/17/19 11:29 99.0 I&O- Last 24 Hours up to 6 AM 03/19/19 06:00 Intake Total 2190 ml Balance 2190 ml Laboratory Data 24H LABS Laboratory Tests 2 03/19/19 06:06: Nucleated Red Blood Cells % (auto) 0.0, Anion Gap 6L, Glomerular Filtration Rate > 60.0, Calcium Level 8.2L, Magnesium Level 2.3, C-Reactive Protein, Quantitative 5.58H CBC/BMP Laboratory Tests 03/19/19 06:06 Microbiology Microbiology 03/17/19 Gastrointestinal Tract Panel (PCR) - Final, Complete Clostridium Difficile A/B 03/16/19 Wound Culture - Final, Complete Escherichia Coli Strep Agalactiae Group B Enterococcus Faecalis 03/15/19 Blood Culture - Preliminary, Resulted No Growth after 72 hours. All specime... 03/15/19 Blood Culture - Preliminary, Resulted No Growth after 72 hours. All specime... ABDIAS MCKEON MD Mar 19, 2019 12:40
--- NOTE | 2019-03-19 14:48 | IPNPDOC ---
Subjective General Date/Time Seen Late entry: The patient was seen on 03/18/19 at 8:40. Subject Chief Complaint/History The patient is a 58-year-old female admitted with a reason for visit of Decubitus Skin Ulcer; Osteomyelitis Of Sacrum. Seen patient in f/up for dressing change. She had a blood transfusion prior, dionisio rothmanng much better. No issued with the wound vac. Current Medications Current Medications Current Medications Medications (Trade) Dose Ordered Sig/Terrell Route PRN Reason Start Time Stop Time Status Last Admin Dose Admin Acetaminophen (Tylenol Tab) 650 mg Q4H PRN PO PAIN OR FEVER 03/15/19 20:00 03/17/19 15:45 Acetaminophen/ Aspirin/Caffeine (Excedrin Migraine) 1 ea DAILY PRN PO HEADACHE 03/15/19 20:45 03/19/19 09:01 Acetaminophen/ Aspirin/Caffeine (Excedrin Migraine) 1 ea Q4HP PRN PO HEADACHE 03/15/19 16:45 03/15/19 20:44 DC 03/15/19 17:09 Ampicillin Sodium/ Sulbactam Sodium 1.5 gm/Dextrose 50 ml @ 100 mls/hr Q6H IV 03/18/19 14:00 03/19/19 13:11 Carvedilol (COReg) 6.25 mg BID PO 03/15/19 21:00 03/19/19 09:00 Heparin Sodium (Porcine) (Heparin) 5,000 units Q12H SC 03/15/19 21:00 03/19/19 08:57 Home Med (Med Rec Complete!) ASDIRECTED XX 03/15/19 18:00 03/15/19 17:57 DC Ibuprofen (Advil) 600 mg Q6HP PRN PO fever 03/17/19 00:15 03/17/19 18:45 DC 03/17/19 00:25 Ibuprofen (Advil) 600 mg Q6HP PRN PO MODERATE PAIN (PS 5-7) 03/17/19 18:45 03/18/19 08:25 Lactobacillus Acidophilus (Bacid) 1 ea BID PO 03/18/19 20:15 03/19/19 08:56 Lactobacillus Acidophilus (Bacid) 1 ea DAILY PO 03/18/19 09:00 03/18/19 20:05 DC 03/18/19 12:11 Lisinopril (Prinivil) 5 mg QHS PO 03/15/19 21:00 03/18/19 21:48 Lorazepam (Ativan) 1 mg STAT STAT IV 03/15/19 20:43 03/15/19 20:46 DC 03/15/19 20:51 Ondansetron HCl (ZOFRAN INJection) 4 mg Q4HP PRN IV NAUSEA OR VOMITING 03/15/19 20:00 Piperacillin Sod/ Tazobactam Sod 3.375 gm/Dextrose 50 ml @ 50 mls/hr Q6H IV 03/15/19 21:00 03/18/19 11:11 DC 03/18/19 08:24 Potassium Chloride (Micro-K Extencaps) 40 meq BID PO 03/15/19 21:00 03/19/19 08:56 Sodium Chloride 1,000 ml @ 15 mls/hr Q24H IV 03/16/19 12:48 03/19/19 10:20 DC 03/18/19 13:08 Tizanidine HCl (Zanaflex) 2 mg TID PO 03/18/19 16:00 03/19/19 08:56 Tizanidine HCl (Zanaflex) 2 mg TIDP PRN PO SPASMS 03/15/19 22:30 03/18/19 17:01 DC 03/18/19 12:11 Vancomycin HCl (First-Vancomycin 50(Firvanq)- 250mg/5ml) 250 mg Q6H PO 03/18/19 12:00 03/19/19 13:11 Vancomycin HCl 750 mg/IV Miscellaneous Supplies 1 each/ Dextrose 275 ml @ 275 mls/hr Q12H IV 03/16/19 06:00 03/17/19 10:13 DC 03/17/19 05:31 Vancomycin HCl 1000 mg/IV Miscellaneous Supplies 1 each/ Dextrose 270 ml @ 270 mls/hr Q12H IV 03/15/19 20:00 03/15/19 21:07 DC Vancomycin HCl 1000 mg/IV Miscellaneous Supplies 1 each/ Dextrose 270 ml @ 270 mls/hr Q12H IV 03/17/19 14:00 03/18/19 11:11 DC 03/18/19 01:39 Allergies Coded Allergies: No Known Allergies (Unverified , 12/21/18) Objective Physical Examination Examination GENERAL APPEARANCE:Patient seen, laying in bed, awake, alert, and oriented. Comfortable, in no acute distress. SKIN: Warm and moist. Sacral wound 7.5x7x1.5cm clean granulating tissue with some fresh bleeding, controlled with pressure. Clear yellow drainage, no purulence, no odor. ABDOMEN: Abdomen is soft. EXTREMITIES: Extremities have no deformities. No edema identified. Left knee with new 2x2 eschar. Clean, dry, no odor, no drainage. Vital Signs Vital Signs Date Time Temp Pulse Resp B/P (MAP) Pulse Ox O2 Delivery O2 Flow Rate FiO2 03/19/19 09:00 85 137/79 03/19/19 06:00 99.0 18 95 Room Air 03/17/19 11:29 99.0 I&Os I&O- Last 24 Hours up to 6 AM 03/19/19 05:59 Intake Total 2090 ml Balance 2090 ml Laboratory Data Labs 24H Laboratory Tests 2 03/19/19 06:06: Nucleated Red Blood Cells % (auto) 0.0, Anion Gap 6L, Glomerular Filtration Rate > 60.0, Calcium Level 8.2L, Magnesium Level 2.3, C-Reactive Protein, Quantitative 5.58H CBC/BMP Laboratory Tests 03/19/19 06:06 Microbiology Microbiology 03/17/19 Gastrointestinal Tract Panel (PCR) - Final, Complete Clostridium Difficile A/B 03/16/19 Wound Culture - Final, Complete Escherichia Coli Strep Agalactiae Group B Enterococcus Faecalis 03/15/19 Blood Culture - Preliminary, Resulted No Growth after 72 hours. All specime... 03/15/19 Blood Culture - Preliminary, Resulted No Growth after 72 hours. All specime... Impression Stage 4 sacral wound - clean, continue with wound vac. change every 3 days. Keep 125mmHg pressure. Left knee traumatic wound (patient states she hit it) apply Xeroform single layer, cover with DPD daily. No surgical intervention at this time. Will follow. Plan / VTE VTE Prophylaxis Ordered?: Yes TERESA KNIGHT DO Mar 19, 2019 14:48
[2019-03-19 16:00] VITALS: BP 132/68
[2019-03-19] MEDS: PIPERACILLIN/TAZOBACTAM SOD 3.375 GM in D5W MINI-BAG PLUS 50 ML IV SCH (17:30)
--- NOTE | 2019-03-19 18:21 | IPN ---
DATE: 03/19/2019 Catherine seems to be doing better today. She is in better spirits. She had a low grade fever last night, 100.2. Today she is afebrile. She still has diarrhea. Temperature is 98.9, pulse 80, respirations 17, blood pressure 132/68, oxygen saturation 96% on room air. HEART: Normal S1, S2. No murmurs, rubs or gallops. LUNGS: Clear. No wheezes or rhonchi. ABDOMEN: Soft, nontender. EXTREMITIES: +1 ankle edema bilaterally. Both knees are contracted, hard to extend due to cerebral palsy. Patient has been in the chair today. Muscles spasms seemed to have improved with muscle relaxant. Wound VAC in place. There is less maceration around the skin today. The wound VAC has a good seal. LABORATORY DATA: White count is 6.8, hemoglobin 10.3, hematocrit 31.7, platelets 728. Sodium 136, potassium 5, chloride 104, bicarbonate 26, BUN 7, creatinine 0.52, glucose 84, calcium 8.2, magnesium 2.3. CRP 5.58, down from 14.3. Wound culture had Escherichia (E) coli, group B Streptococcus and Enterococcus faecalis. E-coli is resistant to Unasyn and cephazolin. IMPRESSION: 1. Sacral coccygeal osteomyelitis with culture positive for group B Streptococcus, E-coli and Enterococcus faecalis. Will switch back to Zosyn as E-coli is resistant to Unasyn. 2. Left knee traumatic wound. The patient injuring it on her wheelchair. 3. Clostridium (C) difficile colitis. On oral vancomycin. PLAN: Discontinue intravenous (IV) Unasyn, switch to IV Zosyn 3.35 grams every 6 hours. Continue oral vancomycin 50 every 6 hours as needed. Consult [facility] ([facility]) regarding placement, maybe long-term versus acute rehabilitation. I do not think the patient is safe to be home, requiring IV antibiotics.
[2019-03-19] MEDS: lisinopriL 5 MG TAB PO SCH (21:34)
[2019-03-19 22:00] VITALS: BP 132/78
[2019-03-20] MEDS: PIPERACILLIN/TAZOBACTAM SOD 3.375 GM in D5W MINI-BAG PLUS 50 ML IV SCH ×5 (00:07→23:57)
[2019-03-20] MEDS: VANCOMYCIN ORAL SOL 250MG/5ML ORAL SYRINGE PO SCH ×5 (00:07→23:57)
[2019-03-20 06:00] VITALS: BP 131/68
[2019-03-20 07:56] LABS: BASO # 0.1 10^3/uL (0.0-0.2); BASO % 1.1 % (0.0-1.0); EOS # 0.4 10^3/uL (0.0-0.5); EOS % 5.2 % (0.0-3.0); HEMATOCRIT 35.7 % (36.0-47.0); LYMPH # 1.3 10^3/uL (1.5-5.0); LYMPH % 18.2 % (24.0-44.0); MEAN CORPUSCULAR HEMOGLOBIN 29.3 pg (27.0-33.0); MEAN CORPUSCULAR HGB CONC 30.8 g/dl (32.0-36.5); MEAN CORPUSCULAR VOLUME 95.2 fl (80.0-96.0); MONO # 0.5 10^3/uL (0.0-0.8); MONO % 7.2 % (0.0-5.0); NEUTROPHILS # 4.8 10^3/uL (1.5-8.5); NEUTROPHILS % 67.4 % (36.0-66.0); PLATELET COUNT, AUTOMATED 697 10^3/uL (150-450); RED BLOOD COUNT 3.75 10^6/uL (4.00-5.40); WHITE BLOOD COUNT 7.1 10^3/uL (4.0-10.0)
[2019-03-20 08:21] LABS: ALBUMIN 1.8 GM/DL (3.2-5.2); ALT/SGPT 24 U/L (12-78); BILIRUBIN,TOTAL 0.1 MG/DL (0.2-1.0); BLOOD UREA NITROGEN 11 MG/DL (7-18); CALCIUM LEVEL 8.4 MG/DL (8.8-10.2); CARBON DIOXIDE LEVEL 28 MEQ/L (21-32); CHLORIDE LEVEL 103 MEQ/L (98-107); CREATININE FOR GFR 0.59 MG/DL (0.55-1.30); GLOMERULAR FILTRATION RATE > 60.0 (>45); GLUCOSE, FASTING 90 MG/DL (70-100); MAGNESIUM LEVEL 2.6 MG/DL (1.8-2.4); POTASSIUM SERUM 4.6 MEQ/L (3.5-5.1); SODIUM LEVEL 137 MEQ/L (136-145); TOTAL PROTEIN 6.5 GM/DL (6.4-8.2)
[2019-03-20] MEDS: HEPARIN SOD (PORCINE) 5000UNITS/ML VIAL (J1644 PER 1000UNITS) SC SCH ×2 (10:16→21:04)
[2019-03-20] MEDS: POTASSIUM CHLORIDE 10 MEQ SR TABLET PO SCH ×2 (10:17→21:05)
[2019-03-20] MEDS: tiZANidine 4 MG TAB PO SCH ×3 (10:17→21:06)
[2019-03-20] MEDS: LACTOBACILLUS ACIDOPHILUS CAP (BACID) PO SCH ×2 (10:18→21:05)
[2019-03-20] MEDS: CARVedilol 6.25 MG TAB PO SCH ×2 (10:18→21:00)
[2019-03-20] MEDS: IBUPROFEN 600 MG TAB PO PRN (10:20)
--- NOTE | 2019-03-20 11:11 | IPNPDOC ---
Subjective Date Seen The patient was seen on 03/20/19. Subjective Chief Complaint/HPI Patient offers no new complaints. Diarrhea has significantly subsided General: Denies: ROS Unobtainable, Chills, Night Sweats, Fatigue, Malaise, Normal Appetite, Other Symptoms Constitutional: Denies: Chills, Fever, Malaise, Night Sweats, Weakness, Fatigue, Weight Loss, Lethargy, Other Pulmonary: Denies: Dyspnea, Cough, Pleuritic Chest Pain, Other Symptoms Cardiovascular: Denies: Chest Pain, Palpitations, Orthopnea, Paroxysmal Noc. Dyspnea, Edema, Lt Headedness, Other Symptoms Gastrointestinal: Denies: Nausea, Vomiting, Abdominal Pain, Diarrhea, Constipation, Melena, Hematochezia, Other Symptoms Genitourinary: Denies: Dysuria, Frequency, Incontinence, Hematuria, Retention, Other Symptoms Musculoskeletal: Denies: Neck Pain, Back Pain, Shoulder Pain, Arm Pain, Hand Pain, Leg Pain, Foot Pain, Joint Pain, Muscle Pain, Spasms, Other Symptoms Neurological: Denies: Weakness, Numbness, Incoordination, Change in speech, Confusion, Seizures, Other Symptoms Objective Physical Examination ENT Exam: Positive: Atraumatic Neck Exam: Positive: Supple Chest Exam: Positive: Clear to auscultation, Normal air movement Heart Exam: Positive: Rate Normal, Normal S1, Normal S2 Abdomen Exam: Positive: Normal bowel sounds, Soft Extremity Exam: Positive: Normal pulses Skin Exam: Positive: Other skin issue (, stage IV sacral decubitus with wound VAC in place since admission) Neuro Exam: Positive: Strength at 5/5 X4 ext Assessment /Plan Problems (1) Decubitus skin ulcer Status: Acute Problem Text: plastic surgery and surgical consult seen and appreciated No surgical intervention admitted to this time Dressing change yesterday by plastic surgery Patient's wound shows a Streptococcus for which she has been started on Unasyn ID has switched antibiotics from Unasyn to Zosyn yesterday but continued to Vanco by mouth Possible transfer to rehabilitation facility once stable (2) Anemia Status: Acute Problem Text: Patient's hemoglobin is 10.6, hematocrit 33.2 after transfusion monitor H&H regularly, and transfuse as needed (3) Multiple sclerosis Status: Acute Problem Text: Continue home meds Wheelchair-bound (4) HTN (hypertension) Status: Chronic Problem Text: Continue home meds (5) Clostridium difficile infection Status: Acute Problem Text: Decreased loose bowel movements as per patient Vancomycin 250 mg by mouth every 6 hours bacid added Contact isolation Plan/VTE VTE Prophylaxis Ordered?: Yes VS, I&O, 24H, Fishbone Vital Signs/I&O Vital Signs Date Time Temp Pulse Resp B/P (MAP) Pulse Ox O2 Delivery O2 Flow Rate FiO2 03/20/19 10:18 93 131/78 03/20/19 06:00 97.1 18 98 Room Air 03/17/19 11:29 99.0 I&O- Last 24 Hours up to 6 AM 03/20/19 05:59 Intake Total 970 ml Output Total 800 ml Balance 170 ml Laboratory Data 24H LABS Laboratory Tests 2 03/20/19 07:28: Immature Granulocyte % (Auto) 0.9, Neutrophils (%) (Auto) 67.4H, Lymphocytes (%) (Auto) 18.2L, Monocytes (%) (Auto) 7.2H, Eosinophils (%) (Auto) 5.2H, Basophils (%) (Auto) 1.1H, Neutrophils # (Auto) 4.8, Lymphocytes # (Auto) 1.3L, Monocytes # (Auto) 0.5, Eosinophils # (Auto) 0.4, Basophils # (Auto) 0.1, Nucleated Red Blood Cells % (auto) 0.0, Anion Gap 6L, Glomerular Filtration Rate > 60.0, C alcium Level 8.4L, Magnesium Level 2.6H, Total Bilirubin 0.1#L, Aspartate Amino Transf (AST/SGOT) 31, Alanine Aminotransferase (ALT/SGPT) 24, Alkaline Phosphatase 132H, Total Protein 6.5, Albumin 1.8L, Albumin/Globulin Ratio 0.38L CBC/BMP Laboratory Tests 03/20/19 07:28 Microbiology Microbiology 03/17/19 Gastrointestinal Tract Panel (PCR) - Final, Complete Clostridium Difficile A/B 03/16/19 Wound Culture - Final, Complete Escherichia Coli Strep Agalactiae Group B Enterococcus Faecalis 03/15/19 Blood Culture - Preliminary, Resulted No Growth after 72 hours. All specime... 03/15/19 Blood Culture - Preliminary, Resulted No Growth after 72 hours. All specime... ABDIAS MCKEON MD Mar 20, 2019 11:11
[2019-03-20 14:00] VITALS: BP 102/59
[2019-03-20] MEDS: ACETAMINOPHEN TAB 650MG DOSE (2X325MG) PO PRN (17:20)
[2019-03-20] MEDS: lisinopriL 5 MG TAB PO SCH (21:00)
[2019-03-20 22:00] VITALS: BP 103/62
[2019-03-21 06:00] VITALS: BP 149/90
[2019-03-21] MEDS: PIPERACILLIN/TAZOBACTAM SOD 3.375 GM in D5W MINI-BAG PLUS 50 ML IV SCH ×4 (06:07→23:03)
[2019-03-21] MEDS: VANCOMYCIN ORAL SOL 250MG/5ML ORAL SYRINGE PO SCH ×4 (06:07→23:03)
[2019-03-21] MEDS: EXCEDRIN MIGRAINE TABLET PO PRN (06:19)
[2019-03-21 06:26] LABS: HEMATOCRIT 40.2 % (36.0-47.0); HEMOGLOBIN 11.7 g/dl (12.0-15.5); MEAN CORPUSCULAR HEMOGLOBIN 28.9 pg (27.0-33.0); MEAN CORPUSCULAR HGB CONC 29.1 g/dl (32.0-36.5); MEAN CORPUSCULAR VOLUME 99.3 fl (80.0-96.0); PLATELET COUNT, AUTOMATED 622 10^3/uL (150-450); RED BLOOD COUNT 4.05 10^6/uL (4.00-5.40); WHITE BLOOD COUNT 7.4 10^3/uL (4.0-10.0)
[2019-03-21 07:58] LABS: BLOOD UREA NITROGEN 14 MG/DL (7-18); CALCIUM LEVEL 8.5 MG/DL (8.8-10.2); CARBON DIOXIDE LEVEL 26 MEQ/L (21-32); CHLORIDE LEVEL 104 MEQ/L (98-107); CREATININE FOR GFR 0.64 MG/DL (0.55-1.30); GLOMERULAR FILTRATION RATE > 60.0 (>45); GLUCOSE, FASTING 93 MG/DL (70-100); MAGNESIUM LEVEL 2.6 MG/DL (1.8-2.4); POTASSIUM SERUM 5.5 MEQ/L (3.5-5.1); SODIUM LEVEL 137 MEQ/L (136-145)
[2019-03-21] MEDS: POTASSIUM CHLORIDE 10 MEQ SR TABLET PO SCH (08:57)
[2019-03-21] MEDS: LACTOBACILLUS ACIDOPHILUS CAP (BACID) PO SCH ×2 (08:58→23:02)
[2019-03-21] MEDS: CARVedilol 6.25 MG TAB PO SCH ×2 (08:58→23:02)
[2019-03-21] MEDS: tiZANidine 4 MG TAB PO SCH ×3 (08:58→23:02)
[2019-03-21] MEDS: HEPARIN SOD (PORCINE) 5000UNITS/ML VIAL (J1644 PER 1000UNITS) SC SCH ×2 (08:59→23:03)
--- NOTE | 2019-03-21 11:03 | IPNPDOC ---
Subjective Date Seen The patient was seen on 03/21/19. Subjective Chief Complaint/HPI Patient is comfortable offers no new complaints General: Denies: ROS Unobtainable, Chills, Night Sweats, Fatigue, Malaise, Normal Appetite, Other Symptoms Constitutional: Denies: Chills, Fever, Malaise, Night Sweats, Weakness, Fatigue, Weight Loss, Lethargy, Other Pulmonary: Denies: Dyspnea, Cough, Pleuritic Chest Pain, Other Symptoms Cardiovascular: Denies: Chest Pain, Palpitations, Orthopnea, Paroxysmal Noc. Dyspnea, Edema, Lt Headedness, Other Symptoms Gastrointestinal: Denies: Nausea, Vomiting, Abdominal Pain, Diarrhea, Const ipation, Melena, Hematochezia, Other Symptoms Musculoskeletal: Denies: Neck Pain, Back Pain, Shoulder Pain, Arm Pain, Hand Pain, Leg Pain, Foot Pain, Joint Pain, Muscle Pain, Spasms, Other Symptoms Neurological: Denies: Weakness, Numbness, Incoordination, Change in speech, Confusion, Seizures, Other Symptoms Objective Physical Examination ENT Exam: Positive: Atraumatic Neck Exam: Positive: Supple Chest Exam: Positive: Clear to auscultation, Normal air movement Heart Exam: Positive: Rate Normal, Normal S1, Normal S2 Abdomen Exam: Positive: Normal bowel sounds, Soft Extremity Exam: Positive: Normal pulses Skin Exam: Positive: Other skin issue (, stage IV sacral decubitus with wound VAC in place since admission) Neuro Exam: Positive: Strength at 5/5 X4 ext Assessment /Plan Problems (1) Decubitus skin ulcer Status: Acute Problem Text: plastic surgery and surgical consult seen and appreciated No surgical intervention admitted to this time Dressing change yesterday by plastic surgery Patient's wound shows a Streptococcus for which she has been started on Unasyn ID has switched antibiotics from Unasyn to Zosyn yesterday but continued to Vanco by mouth Possible transfer to rehabilitation once the bed is available (2) Anemia Status: Acute Problem Text: Patient's hemoglobin is 10.6, hematocrit 33.2 after transfusion monitor H&H regularly, and transfuse as needed (3) Multiple sclerosis Status: Acute Problem Text: Continue home meds Wheelchair-bound (4) HTN (hypertension) Status: Chronic Problem Text: Continue home meds (5) Clostridium difficile infection Status: Acute Problem Text: Stool is formed normal. No abdominal pain, no diarrhea Continue vancomycin as prescribed Plan/VTE VTE Prophylaxis Ordered?: Yes VS, I&O, 24H, Fishbone Vital Signs/I&O Vital Signs Date Time Temp Pulse Resp B/P (MAP) Pulse Ox O2 Delivery O2 Flow Rate FiO2 03/21/19 08:58 85 149/89 03/21/19 06:00 98.7 18 96 Room Air 03/17/19 11:29 99.0 I&O- Last 24 Hours up to 6 AM 03/21/19 06:00 Intake Total 510 ml Output Total 0 ml Balance 510 ml Laboratory Data 24H LABS Laboratory Tests 2 03/21/19 05:56: Nucleated Red Blood Cells % (auto) 0.0 03/21/19 07:20: Anion Gap 7L, Glomerular Filtration Rate > 60.0, Calcium Level 8.5L, Magnesium Level 2.6H CBC/BMP Laboratory Tests 03/21/19 05:56 03/21/19 07:20 Microbiology Microbiology 03/17/19 Gastrointestinal Tract Panel (PCR) - Final, Complete Clostridium Difficile A/B 03/16/19 Wound Culture - Final, Complete Escherichia Coli Strep Agalactiae Group B Enterococcus Faecalis 03/15/19 Blood Culture - Final, Complete NO GROWTH AFTER 5 DAYS 03/15/19 Blood Culture - Final, Complete NO GROWTH AFTER 5 DAYS ABDIAS MCKEON MD Mar 21, 2019 11:03
[2019-03-21] MEDS: ACETAMINOPHEN TAB 650MG DOSE (2X325MG) PO PRN (12:32)
[2019-03-21 14:00] VITALS: BP 138/90
[2019-03-21 22:00] VITALS: BP 124/75
[2019-03-21] MEDS: lisinopriL 5 MG TAB PO SCH (23:01)
[2019-03-22] MEDS: VANCOMYCIN ORAL SOL 250MG/5ML ORAL SYRINGE PO SCH ×4 (05:53→23:16)
[2019-03-22] MEDS: PIPERACILLIN/TAZOBACTAM SOD 3.375 GM in D5W MINI-BAG PLUS 50 ML IV SCH ×4 (05:53→23:16)
[2019-03-22 06:00] VITALS: BP 137/87
[2019-03-22 06:12] LABS: HEMATOCRIT 37.3 % (36.0-47.0); HEMOGLOBIN 11.6 g/dl (12.0-15.5); MEAN CORPUSCULAR HEMOGLOBIN 29.4 pg (27.0-33.0); MEAN CORPUSCULAR HGB CONC 31.1 g/dl (32.0-36.5); MEAN CORPUSCULAR VOLUME 94.4 fl (80.0-96.0); PLATELET COUNT, AUTOMATED 658 10^3/uL (150-450); RED BLOOD COUNT 3.95 10^6/uL (4.00-5.40); WHITE BLOOD COUNT 8.3 10^3/uL (4.0-10.0)
[2019-03-22 06:38] LABS: BLOOD UREA NITROGEN 15 MG/DL (7-18); CALCIUM LEVEL 9.1 MG/DL (8.8-10.2); CARBON DIOXIDE LEVEL 28 MEQ/L (21-32); CHLORIDE LEVEL 101 MEQ/L (98-107); CREATININE FOR GFR 0.73 MG/DL (0.55-1.30); GLOMERULAR FILTRATION RATE > 60.0 (>45); GLUCOSE, FASTING 90 MG/DL (70-100); MAGNESIUM LEVEL 2.5 MG/DL (1.8-2.4); POTASSIUM SERUM 4.1 MEQ/L (3.5-5.1); SODIUM LEVEL 133 MEQ/L (136-145)
[2019-03-22 08:15] VITALS: BP 131/85
[2019-03-22] MEDS: HEPARIN SOD (PORCINE) 5000UNITS/ML VIAL (J1644 PER 1000UNITS) SC SCH ×2 (08:15→23:13)
[2019-03-22] MEDS: tiZANidine 4 MG TAB PO SCH ×3 (08:15→23:12)
[2019-03-22] MEDS: CARVedilol 6.25 MG TAB PO SCH ×2 (08:15→23:17)
[2019-03-22] MEDS: POTASSIUM CHLORIDE 10 MEQ SR TABLET PO SCH ×2 (08:15→23:12)
[2019-03-22] MEDS: LACTOBACILLUS ACIDOPHILUS CAP (BACID) PO SCH ×2 (08:15→23:12)
[2019-03-22] MEDS: EXCEDRIN MIGRAINE TABLET PO PRN (08:16)
--- NOTE | 2019-03-22 10:29 | IPNPDOC ---
Subjective Date Seen The patient was seen on 03/22/19. Subjective Chief Complaint/HPI Patient is comfortable, afebrile. He has a stool incontinence, but was not noticed watery on liquid . General: Denies: ROS Unobtainable, Chills, Night Sweats, Fatigue, Malaise, Normal Appetite, Other Symptoms Pulmonary: Denies: Dyspnea, Cough, Pleuritic Chest Pain, Other Symptoms Cardiovascular: Denies: Chest Pain, Palpitations, Orthopnea, Paroxysmal Noc. Dyspnea, Edema, Lt Headedness, Other Symptoms Gastrointestinal: Denies: Nausea, Vomiting, Abdominal Pain, Diarrhea, Constipation, Melena, Hematochezia, Other Symptoms Endocrine: Denies: Polydipsia, Polyphagia, Polyuria, Heat Intolerance, Cold Intolerance, Other Endocrine Sx Musculoskeletal: Denies: Neck Pain, Back Pain, Shoulder Pain, Arm Pain, Hand Pain, Leg Pain, Foot Pain, Joint Pain, Muscle Pain, Spasms, Other Symptoms Neurological: Denies: Weakness, Numbness, Incoordination, Change in speech, Confusion, Seizures, Other Symptoms Objective Physical Examination ENT Exam: Positive: Atraumatic Neck Exam: Positive: Supple Chest Exam: Positive: Clear to auscultation, Normal air movement Heart Exam: Positive: Rate Normal, Normal S1, Normal S2 Abdomen Exam: Positive: Normal bowel sounds, Soft Extremity Exam: Positive: Normal pulses Skin Exam: Positive: Other skin issue (, stage IV sacral decubitus with wound VAC in place since admission) Neuro Exam: Positive: Strength at 5/5 X4 ext Assessment /Plan Problems (1) Decubitus skin ulcer Status: Acute Problem Text: plastic surgery and surgical consult seen and appreciated No surgical intervention admitted to this time Dressing change yesterday by plastic surgery Patient's wound shows a Streptococcus for which she has been started on Unasyn ID has switched antibiotics from Unasyn to Zosyn yesterday but continued to Vanco by mouth Transfer to rehabilitation facility once bed available (2) Anemia Status: Acute Problem Text: Patient's hemoglobin is 10.6, hematocrit 33.2 after transfusion monitor H&H regularly, and transfuse as needed (3) Multiple sclerosis Status: Acute Problem Text: Continue home meds Wheelchair-bound (4) HTN (hypertension) Status: Chronic Problem Text: Continue home meds (5) Clostridium difficile infection Status: Acute Problem Text: Patient is afebrile, asymptomatic Continue vancomycin Plan/VTE VTE Prophylaxis Ordered?: Yes VS, I&O, 24H, Fishbone Vital Signs/I&O Vital Signs Date Time Temp Pulse Resp B/P (MAP) Pulse Ox O2 Delivery O2 Flow Rate FiO2 03/22/19 08:15 131/85 (100) 03/22/19 08:15 95 03/22/19 06:00 98.0 18 96 Room Air 03/17/19 11:29 99.0 I&O- Last 24 Hours up to 6 AM 03/22/19 05:59 Intake Total 1020 ml Output Total 0 ml Balance 1020 ml Laboratory Data 24H LABS Laboratory Tests 2 03/22/19 05:53: Nucleated Red Blood Cells % (auto) 0.0, Anion Gap 4L, Glomerular Filtration Rate > 60.0, Calcium Level 9.1, Magnesium Level 2.5H CBC/BMP Laboratory Tests 03/22/19 05:53 Microbiology Microbiology 03/17/19 Gastrointestinal Tract Panel (PCR) - Final, Complete Clostridium Difficile A/B 03/16/19 Wound Culture - Final, Complete Escherichia Coli Strep Agalactiae Group B Enterococcus Faecalis 03/15/19 Blood Culture - Final, Complete NO GROWTH AFTER 5 DAYS 03/15/19 Blood Culture - Final, Complete NO GROWTH AFTER 5 DAYS ABDIAS MCKEON MD Mar 22, 2019 10:29
[2019-03-22 14:00] VITALS: BP 120/60
[2019-03-22 22:00] VITALS: BP 127/84
[2019-03-22] MEDS: lisinopriL 5 MG TAB PO SCH (23:18)
[2019-03-23] MEDS: PIPERACILLIN/TAZOBACTAM SOD 3.375 GM in D5W MINI-BAG PLUS 50 ML IV SCH ×3 (06:09→18:14)
[2019-03-23] MEDS: VANCOMYCIN ORAL SOL 250MG/5ML ORAL SYRINGE PO SCH ×3 (06:09→18:14)
[2019-03-23 06:14] VITALS: BP 123/73
[2019-03-23 08:30] VITALS: BP 122/78
[2019-03-23] MEDS: LACTOBACILLUS ACIDOPHILUS CAP (BACID) PO SCH ×2 (08:54→22:28)
[2019-03-23] MEDS: POTASSIUM CHLORIDE 10 MEQ SR TABLET PO SCH ×2 (08:54→22:28)
[2019-03-23] MEDS: HEPARIN SOD (PORCINE) 5000UNITS/ML VIAL (J1644 PER 1000UNITS) SC SCH ×2 (08:54→22:28)
[2019-03-23] MEDS: tiZANidine 4 MG TAB PO SCH ×3 (08:54→22:29)
[2019-03-23] MEDS: IBUPROFEN 600 MG TAB PO PRN (08:55)
[2019-03-23] MEDS: CARVedilol 6.25 MG TAB PO SCH ×2 (08:57→22:29)
--- NOTE | 2019-03-23 11:43 | IPNPDOC ---
Subjective Date Seen The patient was seen on 03/23/19. Subjective Chief Complaint/HPI Patient is comfortable in no distress has formed stools awaiting plastic surgery follow-up General: Denies: ROS Unobtainable, Chills, Night Sweats, Fatigue, Malaise, Normal Appetite, Other Symptoms Constitutional: Denies: Chills, Fever, Malaise, Night Sweats, Weakness, Fatigue, Weight Loss, Lethargy, Other Pulmonary: Denies: Dyspnea, Cough, Pleuritic Chest Pain, Other Symptoms Endocrine: Denies: Polydipsia, Polyphagia, Polyuria, Heat Intolerance, Cold Intolerance, Other Endocrine Sx Musculoskeletal: Denies: Neck Pain, Back Pain, Shoulder Pain, Arm Pain, Hand Pain, Leg Pain, Foot Pain, Joint Pain, Muscle Pain, Spasms, Other Symptoms Neurological: Denies: Weakness, Numbness, Incoordination, Change in speech, Confusion, Seizures, Other Symptoms Objective Physical Examination ENT Exam: Positive: Atraumatic Neck Exam: Positive: Supple Chest Exam: Positive: Clear to auscultation, Normal air movement Heart Exam: Positive: Rate Normal, Normal S1, Normal S2 Abdomen Exam: Positive: Normal bowel sounds, Soft Extremity Exam: Positive: Normal pulses Skin Exam: Positive: Other skin issue (, stage IV sacral decubitus with wound VAC in place since admission) Neuro Exam: Positive: Strength at 5/5 X4 ext Assessment /Plan Problems (1) Decubitus skin ulcer Status: Acute Problem Text: plastic surgery and surgical consult seen and appreciated No surgical intervention admitted to this time Dressing change has been done in the past, bypass tick surgery and follow-up is elevated Patient's wound shows a Streptococcus for which she has been started on Zosyn Patient will be transferred to rehabilitation facility was the bed is available after the PICC line has been placed in for IV antibiotics Duration of IV antibiotics to be determined by infectious disease on discharge (2) Anemia Status: Acute Problem Text: Patient's hemoglobin is 10.6, hematocrit 33.2 after transfusion monitor H&H regularly, and transfuse as needed (3) Multiple sclerosis Status: Acute Problem Text: Continue home meds Wheelchair-bound (4) HTN (hypertension) Status: Chronic Problem Text: Continue home meds (5) Clostridium difficile infection Status: Acute Problem Text: Improving very well with formed stools now The vancomycin by mouth for 10 days Plan/VTE VTE Prophylaxis Ordered?: Yes VS, I&O, 24H, Fishbone Vital Signs/I&O Vital Signs Date Time Temp Pulse Resp B/P (MAP) Pulse Ox O2 Delivery O2 Flow Rate FiO2 03/23/19 08:57 98 122/74 03/23/19 06:14 98.0 17 97 Room Air 03/17/19 11:29 99.0 I&O- Last 24 Hours up to 6 AM 03/23/19 05:59 Intake Total 1400 ml Output Total 0 ml Balance 1400 ml Laboratory Data 24H LABS Laboratory Tests 2 03/23/19 06:00: C-Reactive Protein, Quantitative 0.80H Microbiology Microbiology 03/17/19 Gastrointestinal Tract Panel (PCR) - Final, Complete Clostridium Difficile A/B 03/16/19 Wound Culture - Final, Complete Escherichia Coli Strep Agalactiae Group B Enterococcus Faecalis 03/15/19 Blood Culture - Final, Complete NO GROWTH AFTER 5 DAYS 03/15/19 Blood Culture - Final, Complete NO GROWTH AFTER 5 DAYS ABDIAS MCKEON MD Mar 23, 2019 11:43
[2019-03-23 14:20] VITALS: BP 100/58
[2019-03-23] MEDS: EXCEDRIN MIGRAINE TABLET PO PRN (16:10)
[2019-03-23 22:00] VITALS: BP 113/64
[2019-03-23] MEDS: lisinopriL 5 MG TAB PO SCH (22:29)
[2019-03-24] MEDS: PIPERACILLIN/TAZOBACTAM SOD 3.375 GM in D5W MINI-BAG PLUS 50 ML IV SCH ×4 (00:20→17:22)
[2019-03-24] MEDS: VANCOMYCIN ORAL SOL 250MG/5ML ORAL SYRINGE PO SCH ×4 (00:20→17:21)
[2019-03-24 06:00] VITALS: BP 114/67
[2019-03-24] MEDS: IBUPROFEN 600 MG TAB PO PRN ×2 (06:02→18:12)
--- NOTE | 2019-03-24 09:06 | IPNPDOC ---
Subjective General Date/Time Seen The patient was seen on 03/24/19 at 08:06. Subject Chief Complaint/History The patient is a 58-year-old female admitted with a reason for visit of Decubitus Skin Ulcer; Osteomyelitis Of Sacrum. Patient is comfortable in bed. No new complains. Wound vac in place. Current Medications Current Medications Current Medications Medications (Trade) Dose Ordered Sig/Terrell Route PRN Reason Start Time Stop Time Status Last Admin Dose Admin Acetaminophen (Tylenol Tab) 650 mg Q4H PRN PO PAIN OR FEVER 03/15/19 20:00 03/21/19 12:32 Acetaminophen/ Aspirin/Caffeine (Excedrin Migraine) 1 ea DAILY PRN PO HEADACHE 03/15/19 20:45 03/23/19 16:10 Acetaminophen/ Aspirin/Caffeine (Excedrin Migraine) 1 ea Q4HP PRN PO HEADACHE 03/15/19 16:45 03/15/19 20:44 DC 03/15/19 17:09 Ampicillin Sodium/ Sulbactam Sodium 1.5 gm/Dextrose 50 ml @ 100 mls/hr Q6H IV 03/18/19 14:00 03/19/19 17:02 DC 03/19/19 13:11 Carvedilol (COReg) 6.25 mg BID PO 03/15/19 21:00 03/23/19 22:29 Heparin Sodium (Porcine) (Heparin) 5,000 units Q12H SC 03/15/19 21:00 03/23/19 22:28 Home Med (Med Rec Complete!) ASDIRECTED XX 03/15/19 18:00 03/15/19 17:57 DC Ibuprofen (Advil) 600 mg Q6HP PRN PO fever 03/17/19 00:15 03/17/19 18:45 DC 03/17/19 00:25 Ibuprofen (Advil) 600 mg Q6HP PRN PO MODERATE PAIN (PS 5-7) 03/17/19 18:45 03/24/19 06:02 Lactobacillus Acidophilus (Bacid) 1 ea BID PO 03/18/19 20:15 03/23/19 22:28 Lactobacillus Acidophilus (Bacid) 1 ea DAILY PO 03/18/19 09:00 03/18/19 20:05 DC 03/18/19 12:11 Lisinopril (Prinivil) 5 mg QHS PO 03/15/19 21:00 03/23/19 22:29 Lorazepam (Ativan) 1 mg STAT STAT IV 03/15/19 20:43 03/15/19 20:46 DC 03/15/19 20:51 Miscellaneous (Unresolved Clarification Entry) SEE LABEL COMMENTS DAILY XX 03/22/19 09:00 03/22/19 10:26 DC Ondansetron HCl (ZOFRAN INJection) 4 mg Q4HP PRN IV NAUSEA OR VOMITING 03/15/19 20:00 Piperacillin Sod/ Tazobactam Sod 3.375 gm/Dextrose 50 ml @ 50 mls/hr Q6H IV 03/15/19 21:00 03/18/19 11:11 DC 03/18/19 08:24 Piperacillin Sod/ Tazobactam Sod 3.375 gm/Dextrose 50 ml @ 50 mls/hr Q6H IV 03/19/19 18:00 03/24/19 05:56 Potassium Chloride (Micro-K Extencaps) 40 meq BID PO 03/15/19 21:00 03/23/19 22:28 Sodium Chloride 1,000 ml @ 15 mls/hr Q24H IV 03/16/19 12:48 03/19/19 10:20 DC 03/18/19 13:08 Tizanidine HCl (Zanaflex) 2 mg TID PO 03/18/19 16:00 03/23/19 22:29 Tizanidine HCl (Zanaflex) 2 mg TIDP PRN PO SPASMS 03/15/19 22:30 03/18/19 17:01 DC 03/18/19 12:11 Vancomycin HCl (First-Vancomycin 50(Firvanq)- 250mg/5ml) 250 mg Q6H PO 03/18/19 12:00 03/24/19 05:56 Vancomycin HCl 750 mg/IV Miscellaneous Supplies 1 each/ Dextrose 275 ml @ 275 mls/hr Q12H IV 03/16/19 06:00 03/17/19 10:13 DC 03/17/19 05:31 Vancomycin HCl 1000 mg/IV Miscellaneous Supplies 1 each/ Dextrose 270 ml @ 270 mls/hr Q12H IV 03/15/19 20:00 03/15/19 21:07 DC Vancomycin HCl 1000 mg/IV Miscellaneous Supplies 1 each/ Dextrose 270 ml @ 270 mls/hr Q12H IV 03/17/19 14:00 03/18/19 11:11 DC 03/18/19 01:39 Allergies Coded Allergies: No Known Allergies (Unverified , 12/21/18) Objective Physical Examination Examination GENERAL APPEARANCE:Patient seen, laying in bed, awake, alert, and oriented. Comfortable, in no acute distress. SKIN: Warm and moist. Sacral wound 6 x6 x1.5cm clean granulating tissue with some fresh bleeding, controlled with pressure. Clear yellow drainage, no purulence, no odor. Superior edge with slight duskiness, but viable. Undermining 3 cm at 1 o'clock. ABDOMEN: Abdomen is soft. LUNGS: Clear to auscultation bilaterally. No wheezing appreciated. HEART: No chest wall abnormalities. Regular rate and rhythm with no murmurs appreciated. ABDOMEN: Abdomen is soft. EXTREMITIES: Contracted. Vital Signs Vital Signs Date Time Temp Pulse Resp B/P (MAP) Pulse Ox O2 Delivery O2 Flow Rate FiO2 03/24/19 06:00 97.8 88 18 114/67 (83) 96 Room Air I&Os I&O- Last 24 Hours up to 6 AM 03/24/19 06:00 Intake Total 1440 ml Output Total 0 ml Balance 1440 ml Laboratory Data Microbiology Microbiology 03/17/19 Gastrointestinal Tract Panel (PCR) - Final, Complete Clostridium Difficile A/B 03/16/19 Wound Culture - Final, Complete Escherichia Coli Strep Agalactiae Group B Enterococcus Faecalis 03/15/19 Blood Culture - Final, Complete NO GROWTH AFTER 5 DAYS 03/15/19 Blood Culture - Final, Complete NO GROWTH AFTER 5 DAYS Impression Stage 4 sacral wound. Clean, improving. Continue with wound vac therapy at 125mmHg, marcus foam. Change every 2 days. Off loading. Antibiotics per medical team Patient will follow up with wound care center after discharge. Plan / VTE VTE Prophylaxis Ordered?: Yes TERESA KNIGHT DO Mar 24, 2019 09:06
[2019-03-24] MEDS: HEPARIN SOD (PORCINE) 5000UNITS/ML VIAL (J1644 PER 1000UNITS) SC SCH ×2 (09:20→21:34)
[2019-03-24] MEDS: CARVedilol 6.25 MG TAB PO SCH ×2 (09:21→21:00)
[2019-03-24] MEDS: tiZANidine 4 MG TAB PO SCH ×3 (09:22→21:34)
[2019-03-24] MEDS: LACTOBACILLUS ACIDOPHILUS CAP (BACID) PO SCH ×2 (09:22→21:34)
[2019-03-24 14:00] VITALS: BP 108/66
--- NOTE | 2019-03-24 14:07 | IPNPDOC ---
Date Seen The patient was seen on 03/24/19. Progress Note SUBJECTIVE: 58-year-old female with past medical history of MS, hypertension, osteomyelitis was admitted for sacral wound and osteomyelitis of the sacrum. Patient has since had a wound VAC placed, has been out of by plastic surgery and infectious disease. Her cultures have grown Escherichia coli, group B strep and enterococcus faecalis. Patient remains on Zosyn as per ID, patient was also positive for C. difficile, being treated with oral vancomycin. Patient seen in the morning, comfortable, awaiting PICC line placement prior to discharge to rehabilitation. She denies any shortness of breath, chest pain, nausea, vomiting, abdominal pain or diarrhea. 10 point review of system is negative except for above PHYSICAL EXAMINATION: VITAL SIGNS: Please see below. GENERAL: No distress HEENT: Normocephalic, atraumatic, moist mucous membranes NECK: Supple CARDIOVASCULAR EXAMINATION: S1, S2, no murmurs RESPIRATORY EXAMINATION: Clear to auscultation, no wheezing ABDOMINAL EXAMINATION: Soft, nontender, nondistended, positive bowel sounds EXTREMITIES: Range of motion intact SKIN: Sacral wound VAC in place NEUROLOGICAL EXAMINATION: Alert and oriented 3, no focal deficits PSYCHIATRIC EXAMINATION: Calm and cooperative LABORATORY DATA, IMAGING STUDIES, MICROBIOLOGY: Please see below. ASSESSMENT AND PLAN: 58-year-old female with past medical history of MS, hypertension and osteomyelitis is admitted for sacral wound with osteomyelitis. PROBLEMS: 1. Sacral osteomyelitis: Cultures grew Escherichia coli, group B strep, enterococcus faecalis, continue Zosyn, wound VAC in place, evaluated by plastic surgery and infectious disease. 2. Hypertension: Continue Coreg and lisinopril. 3. C. difficile: Continue vancomycin 250 mg every 6 hours. DVT prophylaxis: Heparin subcutaneous GI prophylaxis: Not needed VS, I&O, 24H, Fishbone Vital Signs/I&O Vital Signs Date Time Temp Pulse Resp B/P (MAP) Pulse Ox O2 Delivery O2 Flow Rate FiO2 03/24/19 09:21 79 114/70 03/24/19 06:00 97.8 18 96 Room Air I&O- Last 24 Hours up to 6 AM 03/24/19 06:00 Intake Total 1440 ml Output Total 0 ml Balance 1440 ml Laboratory Data Microbiology Microbiology 03/17/19 Gastrointestinal Tract Panel (PCR) - Final, Complete Clostridium Difficile A/B 03/16/19 Wound Culture - Final, Complete Escherichia Coli Strep Agalactiae Group B Enterococcus Faecalis 03/15/19 Blood Culture - Final, Complete NO GROWTH AFTER 5 DAYS 03/15/19 Blood Culture - Final, Complete NO GROWTH AFTER 5 DAYS MERCEDES MELTON MD Mar 24, 2019 14:07
[2019-03-24] MEDS ORDERED: LIDOCAINE 1% MDV 20ML VIAL As Ordered ONE (15:56)
[2019-03-24] MEDS ORDERED: SODIUM CHLORIDE 0.9% INJ 10 ML SYR IV PRN (18:15)
[2019-03-24] MEDS: lisinopriL 5 MG TAB PO SCH (21:35)
[2019-03-24 22:00] VITALS: BP 108/67
[2019-03-25] MEDS: PIPERACILLIN/TAZOBACTAM SOD 3.375 GM in D5W MINI-BAG PLUS 50 ML IV SCH ×2 (00:59→06:36)
[2019-03-25] MEDS: VANCOMYCIN ORAL SOL 250MG/5ML ORAL SYRINGE PO SCH ×2 (00:59→06:36)
[2019-03-25 06:00] VITALS: BP 113/69
[2019-03-25] MEDS ORDERED: SODIUM CHLORIDE 0.9% INJ 10 ML SYR IV SCH (06:00)
[2019-03-25 09:33] VITALS: BP 123/69
[2019-03-25] MEDS: tiZANidine 4 MG TAB PO SCH (09:33)
[2019-03-25] MEDS: CARVedilol 6.25 MG TAB PO SCH (09:33)
[2019-03-25] MEDS: LACTOBACILLUS ACIDOPHILUS CAP (BACID) PO SCH (09:33)
[2019-03-25] MEDS: HEPARIN SOD (PORCINE) 5000UNITS/ML VIAL (J1644 PER 1000UNITS) SC SCH (09:34)
[2019-03-25 09:46] LABS: HEMOGLOBIN 11.8 g/dl (12.0-15.5); MEAN CORPUSCULAR HEMOGLOBIN 29.3 pg (27.0-33.0); MEAN CORPUSCULAR HGB CONC 31.1 g/dl (32.0-36.5); MEAN CORPUSCULAR VOLUME 94.3 fl (80.0-96.0); PLATELET COUNT, AUTOMATED 622 10^3/uL (150-450); RED BLOOD COUNT 4.03 10^6/uL (4.00-5.40); WHITE BLOOD COUNT 7.2 10^3/uL (4.0-10.0)
[2019-03-25 10:11] LABS: BLOOD UREA NITROGEN 29 MG/DL (7-18); CALCIUM LEVEL 8.8 MG/DL (8.8-10.2); CARBON DIOXIDE LEVEL 23 MEQ/L (21-32); CHLORIDE LEVEL 102 MEQ/L (98-107); CREATININE FOR GFR 0.77 MG/DL (0.55-1.30); GLOMERULAR FILTRATION RATE > 60.0 (>45); GLUCOSE, FASTING 141 MG/DL (70-100); MAGNESIUM LEVEL 2.3 MG/DL (1.8-2.4); PHOSPHORUS LEVEL 3.8 MG/DL (2.5-4.9); SODIUM LEVEL 134 MEQ/L (136-145)
[2019-03-25] MEDS ORDERED: FIRV50SO PO (11:07)
[2019-03-25] MEDS ORDERED: ZOSY3INJ2 IV (11:07)
--- NOTE | 2019-03-25 11:12 | REP ---
PICC line insertion under ultrasound guidance. The procedure was performed by AFIA Maldonado, under the direct supervision of Dr. Madrid. The risks and benefits of the procedure were explained to the patient and informed consent was obtained both verbally and written. Directly prior to the start of the procedure, a formal timeout was completed in the procedure room. The right basilic vein was localized using ultrasound guidance. The skin was prepped and draped in the sterile fashion. 1 ml 1% lidocaine 10 mg/ml was used as a local anesthetic. Using ultrasound guidance the right basilic vein was cannulated and a 0.018 guidewire was inserted and advanced to the SVC using fluoroscopic guidance. The needle was removed and a 4.5 Surinamese dilator and peel-away sheath was inserted over the guidewire. A 4.5 [place]amese single lumen catheter was cut to the length of 35 cm. The dilator was removed and the catheter was inserted over the guide wire with the tip ending in the SVC. The peel-away sheath was removed and the catheter was flushed with heparinized saline as per hospital protocol. The catheter was affixed to the skin and a sterile dressing was applied. The patient tolerated the procedure well and there were no immediate complications. 0.5 minutes of fluoroscopy time was utilized for this procedure. Some fluoroscopic images are performed with last image hold technology. These images require no additional radiation. Reviewed by AFIA Painter 03/25/2019 07:42 A Electronically Signed by Morgan Madrid MD 03/25/2019 11:02 A
--- NOTE | 2019-03-25 11:14 | DS.PDOC ---
Discharge Summary General Date of Admission Mar 15, 2019 at 20:32 Date of Discharge 03/25/19 Attending Physician: MERCEDES MELTON MD Discharge Summary PROCEDURES PERFORMED DURING STAY: None. ADMITTING DIAGNOSES: 1. Osteomyelitis of the sacrum. DISCHARGE DIAGNOSES: 1. Osteomyelitis of the sacrum COMPLICATIONS/CHIEF COMPLAINT: Decubitus Skin Ulcer; Osteomyelitis Of Sacrum. HISTORY OF PRESENT ILLNESS: 58-year-old female with past medical history of MS, ostial [place], hypertension, was admitted for sacral wound and osteomyelitis. Patient was evaluated by infectious disease and plastic surgery, wound VAC was placed, cultures grew group B strep, Enterococcus faecalis and Escherichia coli, patient has been treated with Zosyn. Patient will require long-term antibiotics, PICC line was placed yesterday, patient will be discharged to [facility] facility for antibiotics and wound care/management. Patient will follow with plastic surgery and infectious disease in the outpatient setting. Patient is seen in the morning, comfortable, without any complaints at this time, clin ically and hemodynamically stable for discharge and outpatient follow-up. HOSPITAL COURSE: As above. DISCHARGE MEDICATIONS: Please see below. ALLERGIES: Please see below. PHYSICAL EXAMINATION: VITAL SIGNS: Please see below. GENERAL: No distress HEENT: Normocephalic, atraumatic, moist mucous membranes NECK: Supple CARDIOVASCULAR EXAMINATION: S1, S2, no murmurs RESPIRATORY EXAMINATION: Clear to auscultation, no wheezing ABDOMINAL EXAMINATION: Soft, nontender, nondistended, positive bowel sounds EXTREMITIES: Range of motion intact SKIN: Sacral wound VAC in place NEUROLOGICAL EXAMINATION: Alert and oriented 3, no focal deficits PSYCHIATRIC EXAMINATION: Calm and cooperative LABORATORY DATA: Please see below. IMAGING: Imaging consistent with osteomyelitis of the sacrum PROGNOSIS: Fair ACTIVITY: As tolerated. DIET: Cardiac DISCHARGE PLAN: Follow-up with plastic surgery, infectious disease and PCP in 1- 2 weeks DISPOSITION: senior living facility. DISCHARGE INSTRUCTIONS: 1. As above. DISCHARGE CONDITION: Stable. TIME SPENT ON DISCHARGE: Greater than 35 minutes. Vital Signs/I&Os Vital Signs Date Time Temp Pulse Resp B/P (MAP) Pulse Ox O2 Delivery O2 Flow Rate FiO2 03/25/19 09:33 106 123/69 03/25/19 06:00 96.7 19 96 Room Air I&O- Last 24 Hours up to 6 AM 03/25/19 06:00 Intake Total 1630 ml Output Total 0 ml Balance 1630 ml Laboratory Data Labs 24H Laboratory Tests 2 03/25/19 09:05: Nucleated Red Blood Cells % (auto) 0.0, Anion Gap 9, Glomerular Filtration Rate > 60.0, Calcium Level 8.8, Phosphorus Level 3.8, Magnesium Level 2.3 CBC/BMP Laboratory Tests 03/25/19 09:05 Microbiology Microbiology 03/17/19 Gastrointestinal Tract Panel (PCR) - Final, Complete Clostridium Difficile A/B 03/16/19 Wound Culture - Final, Complete Escherichia Coli Strep Agalactiae Group B Enterococcus Faecalis 03/15/19 Blood Culture - Final, Complete NO GROWTH AFTER 5 DAYS 03/15/19 Blood Culture - Final, Complete NO GROWTH AFTER 5 DAYS Discharge Medications Scheduled Carvedilol (Carvedilol) 6.25 Mg Tab, 6.25 MG PO BID, (Reported) HAS NOT BEEN TAKING DUE TO LOW BLOOD PRESSURE Lisinopril (Lisinopril) 5 Mg Tab, 5 MG PO QHS, (Reported) HAS NOT BEEN TAKING DUE TO LOW BLOOD PRESSURE Piperacillin Sodium/Tazobactam (Zosyn 3.375 Gram Vial) 3.375 Gm Vial, 1 INJ IV Q8H Vancomycin HCl (Firvanq) 50 Mg/1 Ml Soln.recon, 250 MG PO Q6H Scheduled PRN Aspirin/Acetaminophen/Caffeine (Excedrin Migraine Caplet) 1 Each Tablet, 2 TAB- CAP PO DAILY PRN for HEADACHE, (Reported) Diphenoxylate HCl/Atropine (Diphenoxylate-Atrop 2.5-0.025) 1 Each Tablet, 1 TAB PO BID PRN for DIARRHEA, (Reported) Tizanidine HCl (Tizanidine HCl) 2 Mg Capsule, 2 MG PO TID PRN for SPASMS, (Reported) Allergies Coded Allergies: No Known Allergies (Unverified , 12/21/18) MERCEDES MELTON MD Mar 25, 2019 11:14
== END 2019-03-25 12:59 | DRG 593 ==
LOC: M ED 15:45 → M ED INP 20:32 → ENRESERV 21:35 → ENRESERVDT 03-16 07:45 → ENRESERVTM 03-16 07:45 → M MSPAV 03-16 10:05
PROVIDERS: ADMIT Internal Medicine; ATTEND Internal Medicine
PROC: 02HV33Z Insertion of Infusion Device into Superior Vena Cava, Percutaneous Approach (ICD-10-PCS; principal; 2019-03-24 16:30)
DX: L89.154 Pressure ulcer of sacral region, stage 4 (principal); A04.72 Enterocolitis due to Clostridium difficile, not specified as recurrent; D62 Acute posthemorrhagic anemia; M86.9 Osteomyelitis, unspecified; G35 Multiple sclerosis; I10 Essential (primary) hypertension; R53.1 Weakness; B96.20 Unspecified Escherichia coli [E. coli] as the cause of diseases classified elsewhere; B95.1 Streptococcus, group B, as the cause of diseases classified elsewhere; B95.2 Enterococcus as the cause of diseases classified elsewhere; R50.9 Fever, unspecified; R60.0 Localized edema; Z87.81 Personal history of (healed) traumatic fracture; Z99.3 Dependence on wheelchair; Z79.899 Other long term (current) drug therapy

== ENCOUNTER → 2019-04-01 | Outpatient (REF) ==
[~2019-04-01] MED LIST changes: +FIRV50SO PO; +POTA10TA17 PO; +ZOSY3INJ2 IV
[2019-04-01 08:23] LABS: HEMATOCRIT 32.9 % (36.0-47.0); HEMOGLOBIN 10.3 g/dl (12.0-15.5); MEAN CORPUSCULAR HEMOGLOBIN 30.1 pg (27.0-33.0); MEAN CORPUSCULAR HGB CONC 31.3 g/dl (32.0-36.5); MEAN CORPUSCULAR VOLUME 96.2 fl (80.0-96.0); PLATELET COUNT, AUTOMATED 483 10^3/uL (150-450); RED BLOOD COUNT 3.42 10^6/uL (4.00-5.40); WHITE BLOOD COUNT 6.9 10^3/uL (4.0-10.0)
[2019-04-01 08:46] LABS: BLOOD UREA NITROGEN 17 MG/DL (7-18); CALCIUM LEVEL 8.6 MG/DL (8.8-10.2); CARBON DIOXIDE LEVEL 28 MEQ/L (21-32); CHLORIDE LEVEL 107 MEQ/L (98-107); CREATININE FOR GFR 0.54 MG/DL (0.55-1.30); GLOMERULAR FILTRATION RATE > 60.0 (>45); GLUCOSE, FASTING 77 MG/DL (70-100); POTASSIUM SERUM 4.1 MEQ/L (3.5-5.1); SODIUM LEVEL 141 MEQ/L (136-145)
== END ==
LOC: SKLAB5 11:49
PROVIDERS: ATTEND Internal Medicine
DX: G35 Multiple sclerosis (principal); I10 Essential (primary) hypertension; R78.81 Bacteremia

== ENCOUNTER → 2019-04-01 | Outpatient (REF) | LOC: SKLAB5 08:58 | PROVIDERS: ATTEND Internal Medicine | DX: G35 Multiple sclerosis (principal); I10 Essential (primary) hypertension; R78.81 Bacteremia ==

== ENCOUNTER → 2019-04-07 | Outpatient (REF) | payer MEDICARE ==
[2019-04-07 05:57] LABS: INFLUENZA A AMPLIFICATION POSITIVE (NEGATIVE); INFLUENZA B AMPLIFICATION NEGATIVE (NEGATIVE)
== END ==
LOC: SKLAB5 05:04
PROVIDERS: ATTEND Internal Medicine
DX: R50.9 Fever, unspecified (principal)

== ENCOUNTER → 2019-04-08 | Outpatient (REF) ==
[2019-04-08 07:42] LABS: HEMATOCRIT 34.8 % (36.0-47.0); HEMOGLOBIN 10.6 g/dl (12.0-15.5); MEAN CORPUSCULAR HEMOGLOBIN 28.6 pg (27.0-33.0); MEAN CORPUSCULAR HGB CONC 30.5 g/dl (32.0-36.5); MEAN CORPUSCULAR VOLUME 94.1 fl (80.0-96.0); PLATELET COUNT, AUTOMATED 300 10^3/uL (150-450); WHITE BLOOD COUNT 5.5 10^3/uL (4.0-10.0)
[2019-04-08 07:56] LABS: ALBUMIN 2.3 GM/DL (3.2-5.2); ALT/SGPT 13 U/L (12-78); BILIRUBIN,TOTAL 0.2 MG/DL (0.2-1.0); BLOOD UREA NITROGEN 21 MG/DL (7-18); C REACTIVE PROTEIN QUANTITATIV 7.74 MG/DL (0.00-0.30); CALCIUM LEVEL 8.6 MG/DL (8.8-10.2); CARBON DIOXIDE LEVEL 28 MEQ/L (21-32); CHLORIDE LEVEL 106 MEQ/L (98-107); CREATININE FOR GFR 0.49 MG/DL (0.55-1.30); GLOMERULAR FILTRATION RATE > 60.0 (>45); GLUCOSE, FASTING 90 MG/DL (70-100); POTASSIUM SERUM 3.7 MEQ/L (3.5-5.1); SODIUM LEVEL 140 MEQ/L (136-145); TOTAL PROTEIN 6.6 GM/DL (6.4-8.2)
[2019-04-08 08:37] LABS: ERYTHROCYTE SEDIMENTATION RATE > 140 mm/hr (0-30)
== END ==
LOC: SKLAB5 07:07
PROVIDERS: ATTEND Internal Medicine
DX: R19.7 Diarrhea, unspecified (principal)

== ENCOUNTER → 2019-04-15 | Outpatient (REF) ==
[2019-04-15 08:53] LABS: HEMATOCRIT 35.4 % (36.0-47.0); HEMOGLOBIN 11.2 g/dl (12.0-15.5); MEAN CORPUSCULAR HEMOGLOBIN 29.7 pg (27.0-33.0); MEAN CORPUSCULAR HGB CONC 31.6 g/dl (32.0-36.5); MEAN CORPUSCULAR VOLUME 93.9 fl (80.0-96.0); PLATELET COUNT, AUTOMATED 453 10^3/uL (150-450); RED BLOOD COUNT 3.77 10^6/uL (4.00-5.40); WHITE BLOOD COUNT 6.5 10^3/uL (4.0-10.0)
[2019-04-15 09:12] LABS: ERYTHROCYTE SEDIMENTATION RATE 85 mm/hr (0-30)
[2019-04-15 09:35] LABS: ALBUMIN 2.6 GM/DL (3.2-5.2); ALT/SGPT 15 U/L (12-78); BILIRUBIN,TOTAL 0.2 MG/DL (0.2-1.0); BLOOD UREA NITROGEN 21 MG/DL (7-18); CALCIUM LEVEL 8.9 MG/DL (8.8-10.2); CARBON DIOXIDE LEVEL 27 MEQ/L (21-32); CHLORIDE LEVEL 106 MEQ/L (98-107); GLOMERULAR FILTRATION RATE > 60.0 (>45); GLUCOSE, FASTING 148 MG/DL (70-100); POTASSIUM SERUM 3.8 MEQ/L (3.5-5.1); SODIUM LEVEL 140 MEQ/L (136-145); TOTAL PROTEIN 6.9 GM/DL (6.4-8.2)
== END ==
LOC: SKLAB5 07:54
PROVIDERS: ATTEND Internal Medicine
DX: R19.7 Diarrhea, unspecified (principal)

== ENCOUNTER → 2019-04-22 | Outpatient (REF) ==
[2019-04-22 08:40] LABS: HEMATOCRIT 32.5 % (36.0-47.0); HEMOGLOBIN 10.4 g/dl (12.0-15.5); MEAN CORPUSCULAR VOLUME 93.7 fl (80.0-96.0); PLATELET COUNT, AUTOMATED 451 10^3/uL (150-450); RED BLOOD COUNT 3.47 10^6/uL (4.00-5.40); WHITE BLOOD COUNT 8.5 10^3/uL (4.0-10.0)
[2019-04-22 09:07] LABS: ALBUMIN 2.6 GM/DL (3.2-5.2); ALT/SGPT 15 U/L (12-78); BILIRUBIN,TOTAL 0.2 MG/DL (0.2-1.0); BLOOD UREA NITROGEN 26 MG/DL (7-18); C REACTIVE PROTEIN QUANTITATIV 6.28 MG/DL (0.00-0.30); CALCIUM LEVEL 9.3 MG/DL (8.8-10.2); CARBON DIOXIDE LEVEL 26 MEQ/L (21-32); CHLORIDE LEVEL 107 MEQ/L (98-107); CREATININE FOR GFR 0.57 MG/DL (0.55-1.30); GLOMERULAR FILTRATION RATE > 60.0 (>45); GLUCOSE, FASTING 82 MG/DL (70-100); POTASSIUM SERUM 4.4 MEQ/L (3.5-5.1); SODIUM LEVEL 140 MEQ/L (136-145); TOTAL PROTEIN 6.8 GM/DL (6.4-8.2)
[2019-04-22 09:08] LABS: ERYTHROCYTE SEDIMENTATION RATE > 140 mm/hr (0-30)
== END ==
LOC: SKLAB5 08:06
PROVIDERS: ATTEND Internal Medicine
DX: R19.7 Diarrhea, unspecified (principal)

== ENCOUNTER → 2019-04-29 | Outpatient (REF) ==
[2019-04-29 09:07] LABS: HEMATOCRIT 40.2 % (36.0-47.0); HEMOGLOBIN 12.7 g/dl (12.0-15.5); MEAN CORPUSCULAR HGB CONC 31.6 g/dl (32.0-36.5); MEAN CORPUSCULAR VOLUME 94.8 fl (80.0-96.0); PLATELET COUNT, AUTOMATED 454 10^3/uL (150-450); RED BLOOD COUNT 4.24 10^6/uL (4.00-5.40); WHITE BLOOD COUNT 7.9 10^3/uL (4.0-10.0)
[2019-04-29 09:47] LABS: ALBUMIN 3.2 GM/DL (3.2-5.2); ALT/SGPT 24 U/L (12-78); BILIRUBIN,TOTAL 0.1 MG/DL (0.2-1.0); BLOOD UREA NITROGEN 31 MG/DL (7-18); C REACTIVE PROTEIN QUANTITATIV 2.76 MG/DL (0.00-0.30); CARBON DIOXIDE LEVEL 28 MEQ/L (21-32); CHLORIDE LEVEL 104 MEQ/L (98-107); CREATININE FOR GFR 0.69 MG/DL (0.55-1.30); GLOMERULAR FILTRATION RATE > 60.0 (>45); GLUCOSE, FASTING 112 MG/DL (70-100); POTASSIUM SERUM 4.7 MEQ/L (3.5-5.1); SODIUM LEVEL 139 MEQ/L (136-145); TOTAL PROTEIN 8.1 GM/DL (6.4-8.2)
[2019-04-29 10:13] LABS: ERYTHROCYTE SEDIMENTATION RATE 71 mm/hr (0-30)
== END ==
LOC: SKLAB5 07:46
PROVIDERS: ATTEND Internal Medicine
DX: R19.7 Diarrhea, unspecified (principal)

== ENCOUNTER → 2019-05-03 | Outpatient (REF) | payer MEDICARE ==
[2019-05-03 03:11] LABS: CLOSTRIDIUM DIFFICILE PCR POSITIVE (NEGATIVE)
== END ==
LOC: SKLAB5 01:22
PROVIDERS: ATTEND Internal Medicine
DX: R19.7 Diarrhea, unspecified (principal)

== ENCOUNTER → 2019-05-06 | Outpatient (REF) ==
[~2019-05-06] MED LIST changes: +ACET1TAB55 PO; +BACI1CAP PO; +DIFI200T PO; +DULC10SU2 PR; +ENEMENE4 PR; +ENSU1LIQ36 PO; +JUVEPOW4 PO; +MILKSUS7 PO; +MULTTAB62 PO
[2019-05-06 09:10] LABS: HEMATOCRIT 36.7 % (36.0-47.0); MEAN CORPUSCULAR HEMOGLOBIN 29.7 pg (27.0-33.0); MEAN CORPUSCULAR HGB CONC 32.7 g/dl (32.0-36.5); MEAN CORPUSCULAR VOLUME 90.8 fl (80.0-96.0); PLATELET COUNT, AUTOMATED 496 10^3/uL (150-450); RED BLOOD COUNT 4.04 10^6/uL (4.00-5.40); WHITE BLOOD COUNT 10.4 10^3/uL (4.0-10.0)
[2019-05-06 09:57] LABS: ALBUMIN 2.9 GM/DL (3.2-5.2); BILIRUBIN,TOTAL 0.2 MG/DL (0.2-1.0); CALCIUM LEVEL 9.8 MG/DL (8.8-10.2); CREATININE FOR GFR 1.11 MG/DL (0.55-1.30); GLOMERULAR FILTRATION RATE 53.4 (>45); POTASSIUM SERUM 4.2 MEQ/L (3.5-5.1); TOTAL PROTEIN 7.4 GM/DL (6.4-8.2)
[2019-05-06 10:36] LABS: ERYTHROCYTE SEDIMENTATION RATE 83 mm/hr (0-30)
== END ==
LOC: SKLAB5 11:25
PROVIDERS: ATTEND Internal Medicine
DX: R19.7 Diarrhea, unspecified (principal)

== ENCOUNTER 2019-05-07 19:09 | Emergency (ER) | payer MEDICARE ==
[~2019-05-07 19:09] MED LIST changes: -ACET1TAB55 PO; -BACI1CAP PO; -DIFI200T PO; -DULC10SU2 PR; -ENEMENE4 PR; -ENSU1LIQ36 PO; -JUVEPOW4 PO; -MILKSUS7 PO; -MULTTAB62 PO
[2019-05-07] MEDS ORDERED: LISI-542 PO (20:01)
[2019-05-07] MEDS ORDERED: JUVEPOW4 PO (20:07)
[2019-05-07] MEDS ORDERED: ACET1TAB55 PO (20:07)
[2019-05-07] MEDS ORDERED: DULC10SU2 PR (20:07)
[2019-05-07] MEDS ORDERED: ENSU1LIQ36 PO (20:07)
[2019-05-07] MEDS ORDERED: DIFI200T PO (20:07)
[2019-05-07] MEDS ORDERED: BACI1CAP PO (20:07)
[2019-05-07] MEDS ORDERED: MULTTAB62 PO (20:07)
[2019-05-07] MEDS ORDERED: ENEMENE4 PR (20:07)
[2019-05-07] MEDS ORDERED: MILKSUS7 PO (20:07)
[2019-05-07 20:08] LABS: BASO # 0.1 10^3/uL (0.0-0.2); BASO % 0.9 % (0.0-1.0); EOS # 0.2 10^3/uL (0.0-0.5); EOS % 2.6 % (0.0-3.0); HEMATOCRIT 35.5 % (36.0-47.0); HEMOGLOBIN 11.6 g/dl (12.0-15.5); LYMPH # 0.6 10^3/uL (1.5-5.0); LYMPH % 6.4 % (24.0-44.0); MEAN CORPUSCULAR HEMOGLOBIN 29.8 pg (27.0-33.0); MEAN CORPUSCULAR HGB CONC 32.7 g/dl (32.0-36.5); MEAN CORPUSCULAR VOLUME 91.3 fl (80.0-96.0); MONO # 0.4 10^3/uL (0.0-0.8); MONO % 4.5 % (0.0-5.0); NEUTROPHILS # 7.8 10^3/uL (1.5-8.5); NEUTROPHILS % 84.9 % (36.0-66.0); PLATELET COUNT, AUTOMATED 410 10^3/uL (150-450); RED BLOOD COUNT 3.89 10^6/uL (4.00-5.40); WHITE BLOOD COUNT 9.1 10^3/uL (4.0-10.0)
--- NOTE | 2019-05-07 20:11 | REP ---
HISTORY: Pyrexia. COMPARISON: Multiple, the latest 03/15/2019. The technique utilized in obtaining the radiograph has magnified the cardiac silhouette and accentuated the interstitial markings. There is cardiomegaly accentuated by technique. There is biapical pleural parenchymal scarring essentially unchanged from prior exams. No acute patchy parenchymal opacities or pleural effusions have developed. There is no change in the osseous structures. IMPRESSION: Chronic changes without evidence of acute cardiopulmonary disease. Electronically Signed by Jhony Rivera DO 05/08/2019 09:26 A
[2019-05-07 20:26] LABS: BLOOD UREA NITROGEN 55 MG/DL (7-18); C REACTIVE PROTEIN QUANTITATIV 8.68 MG/DL (0.00-0.30); CALCIUM LEVEL 8.8 MG/DL (8.8-10.2); CARBON DIOXIDE LEVEL 24 MEQ/L (21-32); CHLORIDE LEVEL 103 MEQ/L (98-107); CREATININE FOR GFR 0.81 MG/DL (0.55-1.30); GLOMERULAR FILTRATION RATE > 60.0 (>45); GLUCOSE, FASTING 123 MG/DL (70-100); POTASSIUM SERUM 4.5 MEQ/L (3.5-5.1); SODIUM LEVEL 135 MEQ/L (136-145)
[2019-05-07 21:45] VITALS: BP 131/60
[2019-05-07] MEDS ORDERED: ACETAMINOPHEN TAB 650MG DOSE (2X325MG) PO ONE (23:15)
== END 2019-05-07 23:59 | disposition home or self-care (01) ==
LOC: M ED 19:09
DX: R50.9 Fever, unspecified (principal); R51 Headache; G35 Multiple sclerosis; Z87.19 Personal history of other diseases of the digestive system; J44.9 Chronic obstructive pulmonary disease, unspecified; L89.94 Pressure ulcer of unspecified site, stage 4; Z79.899 Other long term (current) drug therapy; Z79.82 Long term (current) use of aspirin

== ENCOUNTER → 2019-05-13 | Outpatient (REF) ==
[~2019-05-13] MED LIST changes: +ACET1TAB55 PO; +BACI1CAP PO; +DIFI200T PO; +DULC10SU2 PR; +ENEMENE4 PR; +ENSU1LIQ36 PO; +JUVEPOW4 PO; +MILKSUS7 PO; +MULTTAB62 PO
[2019-05-13 08:56] LABS: HEMATOCRIT 32.5 % (36.0-47.0); HEMOGLOBIN 10.5 g/dl (12.0-15.5); MEAN CORPUSCULAR HGB CONC 32.3 g/dl (32.0-36.5); MEAN CORPUSCULAR VOLUME 92.9 fl (80.0-96.0); PLATELET COUNT, AUTOMATED 520 10^3/uL (150-450); WHITE BLOOD COUNT 12.4 10^3/uL (4.0-10.0)
[2019-05-13 09:19] LABS: ALBUMIN 2.4 GM/DL (3.2-5.2); ALT/SGPT 39 U/L (12-78); BILIRUBIN,TOTAL 0.3 MG/DL (0.2-1.0); BLOOD UREA NITROGEN 18 MG/DL (7-18); CALCIUM LEVEL 9.3 MG/DL (8.8-10.2); CARBON DIOXIDE LEVEL 24 MEQ/L (21-32); CHLORIDE LEVEL 105 MEQ/L (98-107); CREATININE FOR GFR 0.52 MG/DL (0.55-1.30); GLOMERULAR FILTRATION RATE > 60.0 (>45); GLUCOSE, FASTING 83 MG/DL (70-100); POTASSIUM SERUM 4.6 MEQ/L (3.5-5.1); SODIUM LEVEL 137 MEQ/L (136-145); TOTAL PROTEIN 6.7 GM/DL (6.4-8.2)
[2019-05-13 09:21] LABS: ERYTHROCYTE SEDIMENTATION RATE > 140 mm/hr (0-30)
== END ==
LOC: SKLAB5 07:47
PROVIDERS: ATTEND Internal Medicine
DX: R19.7 Diarrhea, unspecified (principal)

== ENCOUNTER → 2019-05-13 | Outpatient (REF) ==
[2019-05-14 07:12] LABS: MEAN CORPUSCULAR HEMOGLOBIN 29.2 pg (27.0-33.0); MEAN CORPUSCULAR HGB CONC 31.3 g/dl (32.0-36.5); MEAN CORPUSCULAR VOLUME 93.3 fl (80.0-96.0); PLATELET COUNT, AUTOMATED 511 10^3/uL (150-450); RED BLOOD COUNT 3.43 10^6/uL (4.00-5.40); WHITE BLOOD COUNT 14.3 10^3/uL (4.0-10.0)
== END ==
LOC: SKLAB5 08:03
PROVIDERS: ATTEND Internal Medicine
DX: D72.829 Elevated white blood cell count, unspecified (principal)

== ENCOUNTER → 2019-05-14 | Outpatient (REF) ==
--- NOTE | 2019-05-14 11:32 | REP ---
CHEST, PORTABLE: AP portable view of the chest is performed and compared to a prior study of 05/07/2019. There may be some mild infiltrate in the left lung base laterally. There is no acute infiltrate in the right lung. There mild biapical pleural thickening which is chronic. Heart is not enlarged. There is calcification of the thoracic aorta. Mediastinal silhouette is unchanged. IMPRESSION: Possible mild infiltrate left lung base. Electronically Signed by Morgan Madrid MD 05/14/2019 02:06 P
[2019-05-14 14:16] LABS: APPEARANCE, URINE CLOUDY (CLEAR); BACTERIA, URINE AUTO 2+ (NEGATIVE); BILIRUBIN, URINE AUTO NEGATIVE (NEGATIVE); BLOOD, URINE BLOOD NEGATIVE (NEGATIVE); COLOR, URINE YELLOW (YELLOW); GLUCOSE, URINE (UA) AUTO NEGATIVE (NEGATIVE); KETONE, URINE AUTO NEGATIVE (NEGATIVE); LEUKOCYTE ESTERASE, URINE AUTO 3+ (NEGATIVE); NITRITE, URINE AUTO POSITIVE (NEGATIVE); PROTEIN, URINE AUTO 1+ mg/dL (NEGATIVE); RBC, URINE AUTO 15 /HPF (0-3); SPECIFIC GRAVITY URINE AUTO 1.011 (1.002-1.035); SQUAMOUS EPITHELIAL CELL UR AU 0 /HPF (0-6); UROBILINOGEN, URINE AUTO 0.2 mg/dL (0.0-2.0); WBC, URINE AUTO TNTC /HPF (0-3)
== END ==
LOC: SKLAB5 08:22
PROVIDERS: ATTEND Internal Medicine
DX: D72.829 Elevated white blood cell count, unspecified (principal)

== ENCOUNTER → 2019-05-17 | Outpatient (REF) ==
[2019-05-17 07:31] LABS: BASO % 0.3 % (0.0-1.0); EOS % 0.4 % (0.0-3.0); HEMATOCRIT 31.3 % (36.0-47.0); HEMOGLOBIN 10.1 g/dl (12.0-15.5); LYMPH # 1.9 10^3/uL (1.5-5.0); LYMPH % 17.3 % (24.0-44.0); MEAN CORPUSCULAR HEMOGLOBIN 30.7 pg (27.0-33.0); MEAN CORPUSCULAR HGB CONC 32.3 g/dl (32.0-36.5); MEAN CORPUSCULAR VOLUME 95.1 fl (80.0-96.0); MONO # 0.7 10^3/uL (0.0-0.8); MONO % 6.7 % (0.0-5.0); NEUTROPHILS # 8.2 10^3/uL (1.5-8.5); NEUTROPHILS % 74.4 % (36.0-66.0); PLATELET COUNT, AUTOMATED 634 10^3/uL (150-450); RED BLOOD COUNT 3.29 10^6/uL (4.00-5.40)
[2019-05-17 07:49] LABS: ERYTHROCYTE SEDIMENTATION RATE 85 mm/hr (0-30)
== END ==
LOC: SKLAB5 07:21
PROVIDERS: ATTEND Internal Medicine
DX: D72.829 Elevated white blood cell count, unspecified (principal)

== ENCOUNTER → 2019-05-20 | Outpatient (REF) ==
[2019-05-20 08:05] LABS: HEMATOCRIT 34.6 % (36.0-47.0); MEAN CORPUSCULAR HEMOGLOBIN 30.1 pg (27.0-33.0); MEAN CORPUSCULAR HGB CONC 31.8 g/dl (32.0-36.5); MEAN CORPUSCULAR VOLUME 94.8 fl (80.0-96.0); PLATELET COUNT, AUTOMATED 625 10^3/uL (150-450); RED BLOOD COUNT 3.65 10^6/uL (4.00-5.40); WHITE BLOOD COUNT 9.3 10^3/uL (4.0-10.0)
[2019-05-20 08:37] LABS: ALBUMIN 2.5 GM/DL (3.2-5.2); ALT/SGPT 90 U/L (12-78); BILIRUBIN,TOTAL 0.4 MG/DL (0.2-1.0); BLOOD UREA NITROGEN 19 MG/DL (7-18); C REACTIVE PROTEIN QUANTITATIV 2.27 MG/DL (0.00-0.30); CALCIUM LEVEL 9.2 MG/DL (8.8-10.2); CARBON DIOXIDE LEVEL 29 MEQ/L (21-32); CHLORIDE LEVEL 102 MEQ/L (98-107); CREATININE FOR GFR 0.61 MG/DL (0.55-1.30); GLOMERULAR FILTRATION RATE > 60.0 (>45); GLUCOSE, FASTING 84 MG/DL (70-100); POTASSIUM SERUM 4.3 MEQ/L (3.5-5.1); SODIUM LEVEL 138 MEQ/L (136-145)
[2019-05-20 09:43] LABS: ERYTHROCYTE SEDIMENTATION RATE 69 mm/hr (0-30)
== END ==
LOC: SKLAB5 08:05
PROVIDERS: ATTEND Internal Medicine
DX: R19.7 Diarrhea, unspecified (principal)

== ENCOUNTER → 2019-05-27 | Outpatient (REF) ==
[2019-05-27 08:11] LABS: BASO # 0.1 10^3/uL (0.0-0.2); BASO % 0.8 % (0.0-1.0); EOS # 0.3 10^3/uL (0.0-0.5); EOS % 4.5 % (0.0-3.0); HEMATOCRIT 31.1 % (36.0-47.0); HEMOGLOBIN 9.8 g/dl (12.0-15.5); LYMPH # 1.5 10^3/uL (1.5-5.0); LYMPH % 21.6 % (24.0-44.0); MEAN CORPUSCULAR HEMOGLOBIN 29.8 pg (27.0-33.0); MEAN CORPUSCULAR HGB CONC 31.5 g/dl (32.0-36.5); MEAN CORPUSCULAR VOLUME 94.5 fl (80.0-96.0); MONO # 0.6 10^3/uL (0.0-0.8); MONO % 8.8 % (0.0-5.0); NEUTROPHILS # 4.6 10^3/uL (1.5-8.5); PLATELET COUNT, AUTOMATED 432 10^3/uL (150-450); RED BLOOD COUNT 3.29 10^6/uL (4.00-5.40); WHITE BLOOD COUNT 7.1 10^3/uL (4.0-10.0)
[2019-05-27 08:32] LABS: ALBUMIN 2.4 GM/DL (3.2-5.2); ALT/SGPT 26 U/L (12-78); BILIRUBIN,TOTAL 0.2 MG/DL (0.2-1.0); BLOOD UREA NITROGEN 22 MG/DL (7-18); CARBON DIOXIDE LEVEL 26 MEQ/L (21-32); CHLORIDE LEVEL 104 MEQ/L (98-107); CREATININE FOR GFR 0.56 MG/DL (0.55-1.30); GLOMERULAR FILTRATION RATE > 60.0 (>45); GLUCOSE, FASTING 89 MG/DL (70-100); POTASSIUM SERUM 4.9 MEQ/L (3.5-5.1); SODIUM LEVEL 137 MEQ/L (136-145); TOTAL PROTEIN 6.6 GM/DL (6.4-8.2)
[2019-05-27 09:03] LABS: ERYTHROCYTE SEDIMENTATION RATE 109 mm/hr (0-30)
== END ==
LOC: SKLAB5 08:13
PROVIDERS: ATTEND Internal Medicine
DX: A04.72 Enterocolitis due to Clostridium difficile, not specified as recurrent (principal)

== ENCOUNTER → 2019-06-17 | Outpatient (REF) | payer MEDICARE ==
[2019-06-17 09:00] LABS: HEMATOCRIT 35.5 % (36.0-47.0); HEMOGLOBIN 11.3 g/dl (12.0-15.5); MEAN CORPUSCULAR HEMOGLOBIN 30.4 pg (27.0-33.0); MEAN CORPUSCULAR HGB CONC 31.8 g/dl (32.0-36.5); MEAN CORPUSCULAR VOLUME 95.4 fl (80.0-96.0); PLATELET COUNT, AUTOMATED 399 10^3/uL (150-450); RED BLOOD COUNT 3.72 10^6/uL (4.00-5.40); WHITE BLOOD COUNT 9.2 10^3/uL (4.0-10.0)
[2019-06-17 09:24] LABS: ALBUMIN 2.9 GM/DL (3.2-5.2); ALT/SGPT 11 U/L (12-78); BILIRUBIN,TOTAL 0.2 MG/DL (0.2-1.0); BLOOD UREA NITROGEN 14 MG/DL (7-18); C REACTIVE PROTEIN QUANTITATIV 3.82 MG/DL (0.00-0.30); CALCIUM LEVEL 9.1 MG/DL (8.8-10.2); CARBON DIOXIDE LEVEL 28 MEQ/L (21-32); CHLORIDE LEVEL 106 MEQ/L (98-107); CREATININE FOR GFR 0.62 MG/DL (0.55-1.30); GLOMERULAR FILTRATION RATE > 60.0 (>45); GLUCOSE, FASTING 102 MG/DL (70-100); POTASSIUM SERUM 4.1 MEQ/L (3.5-5.1); SODIUM LEVEL 141 MEQ/L (136-145); TOTAL PROTEIN 6.7 GM/DL (6.4-8.2)
[2019-06-17 09:28] LABS: ERYTHROCYTE SEDIMENTATION RATE 75 mm/hr (0-30)
== END ==
LOC: SKLAB5 07:41
PROVIDERS: ATTEND Internal Medicine
DX: A04.72 Enterocolitis due to Clostridium difficile, not specified as recurrent (principal)

== ENCOUNTER → 2019-06-22 | Outpatient (REF) | LOC: SKLAB5 07:31 | PROVIDERS: ATTEND Nurse Practitioner Family | DX: R19.7 Diarrhea, unspecified (principal) ==

== ENCOUNTER → 2019-06-24 | Outpatient (REF) | payer MEDICARE ==
[2019-06-24 08:55] LABS: HEMATOCRIT 36.4 % (36.0-47.0); HEMOGLOBIN 11.5 g/dl (12.0-15.5); MEAN CORPUSCULAR HEMOGLOBIN 30.7 pg (27.0-33.0); MEAN CORPUSCULAR HGB CONC 31.6 g/dl (32.0-36.5); MEAN CORPUSCULAR VOLUME 97.3 fl (80.0-96.0); PLATELET COUNT, AUTOMATED 419 10^3/uL (150-450); RED BLOOD COUNT 3.74 10^6/uL (4.00-5.40); WHITE BLOOD COUNT 9.1 10^3/uL (4.0-10.0)
[2019-06-24 09:19] LABS: ERYTHROCYTE SEDIMENTATION RATE 54 mm/hr (0-30)
[2019-06-24 09:22] LABS: ALT/SGPT 17 U/L (12-78); BILIRUBIN,TOTAL 0.4 MG/DL (0.2-1.0); BLOOD UREA NITROGEN 19 MG/DL (7-18); C REACTIVE PROTEIN QUANTITATIV 1.23 MG/DL (0.00-0.30); CALCIUM LEVEL 9.5 MG/DL (8.8-10.2); CARBON DIOXIDE LEVEL 30 MEQ/L (21-32); CHLORIDE LEVEL 103 MEQ/L (98-107); CREATININE FOR GFR 0.54 MG/DL (0.55-1.30); GLOMERULAR FILTRATION RATE > 60.0 (>45); GLUCOSE, FASTING 81 MG/DL (70-100); POTASSIUM SERUM 4.2 MEQ/L (3.5-5.1); SODIUM LEVEL 139 MEQ/L (136-145); TOTAL PROTEIN 6.7 GM/DL (6.4-8.2)
== END ==
LOC: SKLAB5 07:32
PROVIDERS: ATTEND Internal Medicine
DX: A04.72 Enterocolitis due to Clostridium difficile, not specified as recurrent (principal)

== ENCOUNTER → 2019-07-06 | Outpatient (REF) ==
[2019-07-06 09:10] LABS: BLOOD UREA NITROGEN 14 MG/DL (7-18); CARBON DIOXIDE LEVEL 31 MEQ/L (21-32); CHLORIDE LEVEL 102 MEQ/L (98-107); CREATININE FOR GFR 0.52 MG/DL (0.55-1.30); GLOMERULAR FILTRATION RATE > 60.0 (>45); GLUCOSE, FASTING 112 MG/DL (70-100); POTASSIUM SERUM 3.8 MEQ/L (3.5-5.1); SODIUM LEVEL 137 MEQ/L (136-145)
== END ==
LOC: SKLAB5 07:55
PROVIDERS: ATTEND Internal Medicine
DX: R19.7 Diarrhea, unspecified (principal)

== ENCOUNTER → 2019-07-07 | Outpatient (REF) | LOC: SKLAB5 08:57 | PROVIDERS: ATTEND Internal Medicine | DX: Z03.818 Encounter for observation for suspected exposure to other biological agents ruled out (principal) ==

== ENCOUNTER → 2019-07-23 | Outpatient (REF) | payer MEDICARE ==
[2019-07-23 17:48] LABS: ALBUMIN 2.8 GM/DL (3.2-5.2); ALT/SGPT 30 U/L (12-78); BILIRUBIN,TOTAL 0.1 MG/DL (0.2-1.0); BLOOD UREA NITROGEN 20 MG/DL (7-18); CALCIUM LEVEL 8.8 MG/DL (8.8-10.2); CARBON DIOXIDE LEVEL 29 MEQ/L (21-32); CHLORIDE LEVEL 108 MEQ/L (98-107); CHOLESTEROL LEVEL 190 MG/DL (<200); CHOLESTEROL RISK RATIO 3.725 (<5); CREATININE FOR GFR 0.57 MG/DL (0.55-1.30); GLOMERULAR FILTRATION RATE > 60.0 (>45); GLUCOSE, FASTING 79 MG/DL (70-100); HDL CHOLESTEROL 51 MG/DL (>40); LDL CHOLESTEROL 101 MG/DL (<100); NON-HDL-C 139 MG/DL; POTASSIUM SERUM 3.9 MEQ/L (3.5-5.1); SODIUM LEVEL 144 MEQ/L (136-145); TOTAL PROTEIN 6.5 GM/DL (6.4-8.2); TRIGLYCERIDES LEVEL 190 MG/DL (<150)
[2019-07-23 18:09] LABS: BASO # 0.1 10^3/uL (0.0-0.2); BASO % 1.2 % (0.0-1.0); EOS # 0.4 10^3/uL (0.0-0.5); EOS % 3.4 % (0.0-3.0); HEMATOCRIT 34.8 % (36.0-47.0); HEMOGLOBIN 10.8 g/dl (12.0-15.5); LYMPH # 2.7 10^3/uL (1.5-5.0); LYMPH % 25.6 % (24.0-44.0); MONO # 0.6 10^3/uL (0.0-0.8); MONO % 5.9 % (0.0-5.0); NEUTROPHILS # 6.6 10^3/uL (1.5-8.5); NEUTROPHILS % 63.4 % (36.0-66.0); PLATELET COUNT, AUTOMATED 476 10^3/uL (150-450); RED BLOOD COUNT 3.48 10^6/uL (4.00-5.40); WHITE BLOOD COUNT 10.4 10^3/uL (4.0-10.0)
[2019-07-23 18:28] LABS: HIV 1&2 SCREEN CENTAUR NEGATIVE (NEGATIVE)
[2019-07-23 18:35] LABS: HEMOGLOBIN A1c 5.2 %
[2019-07-26 10:31] LABS: HEPATITIS B SURFACE ANTIGEN NEGATIVE (NEGATIVE)
[2019-07-26 10:58] LABS: HEPATITIS B CORE ANTIBODY IGM NEGATIVE (NEGATIVE); HEPATITIS C VIRUS ABY INDEX 0.1 INDEX (<0.8)
[2019-07-26 11:10] LABS: HEPATITIS A ANTIBODY IGM NEGATIVE (NEGATIVE)
== END ==
LOC: M SFHCPLAZ 14:57
DX: Z00.00 Encounter for general adult medical examination without abnormal findings (principal); Z79.899 Other long term (current) drug therapy
CPT/HCPCS: 36415; 80053; 80061; 83036; 85025; 86705; 86709; 86803; 87340; 87389; 90732; G0009; G0463

== ENCOUNTER → 2020-06-01 | Outpatient (REF) | payer MEDICARE, MEDICAID ==
[~2020-06-01] MED LIST changes: -LISI-542 PO; +LISI-898 PO
[2020-06-01 17:30] LABS: BASO # 0.1 10^3/uL (0.0-0.2); BASO % 1.3 % (0.0-1.0); EOS # 0.3 10^3/uL (0.0-0.5); EOS % 3.5 % (0.0-3.0); HEMATOCRIT 34.1 % (36.0-47.0); HEMOGLOBIN 10.1 g/dl (12.0-15.5); LYMPH # 2.5 10^3/uL (1.5-5.0); LYMPH % 29.2 % (24.0-44.0); MEAN CORPUSCULAR HEMOGLOBIN 26.1 pg (27.0-33.0); MEAN CORPUSCULAR HGB CONC 29.6 g/dl (32.0-36.5); MEAN CORPUSCULAR VOLUME 88.1 fl (80.0-96.0); MONO # 0.5 10^3/uL (0.0-0.8); MONO % 6.2 % (2.0-8.0); NEUTROPHILS # 5.2 10^3/uL (1.5-8.5); NEUTROPHILS % 59.5 % (36.0-66.0); PLATELET COUNT, AUTOMATED 466 10^3/uL (150-450); RED BLOOD COUNT 3.87 10^6/uL (4.00-5.40); WHITE BLOOD COUNT 8.7 10^3/uL (4.0-10.0)
[2020-06-01 17:57] LABS: ALBUMIN 3.4 GM/DL (3.2-5.2); ALT/SGPT 21 U/L (12-78); BILIRUBIN,TOTAL < 0.1 MG/DL (0.2-1.0); BLOOD UREA NITROGEN 27 MG/DL (7-18); CALCIUM LEVEL 9.6 MG/DL (8.8-10.2); CARBON DIOXIDE LEVEL 26 MEQ/L (21-32); CHLORIDE LEVEL 110 MEQ/L (98-107); CHOLESTEROL LEVEL 197 MG/DL (<200); CHOLESTEROL RISK RATIO 3.648 (<5); CREATININE FOR GFR 0.62 MG/DL (0.55-1.30); FERRITIN 11 NG/ML (8-252); GLOMERULAR FILTRATION RATE > 60.0 (>45); GLUCOSE, FASTING 97 MG/DL (70-100); HDL CHOLESTEROL 54 MG/DL (>40); IRON (FE) 25 UG/DL (50-170); LDL CHOLESTEROL 117 MG/DL (<100); NON-HDL-C 143 MG/DL; SODIUM LEVEL 143 MEQ/L (136-145); TOTAL PROTEIN 7.3 GM/DL (6.4-8.2); TRIGLYCERIDES LEVEL 129 MG/DL (<150)
[2020-06-01 18:01] LABS: VITAMIN B12 LEVEL 655 PG/ML (247-911)
[2020-06-01 18:02] LABS: FOLATE 10.1 NG/ML (>5.4)
[2020-06-01 18:06] LABS: HEMOGLOBIN A1c 5.3 %
[2020-06-05 10:53] LABS: ALBUMIN 3.87 GM/DL (3.29-5.55); ALPHA-1-GLOBULIN % 5.6 % (2.9-4.9); ALPHA-1-GLOBULINS 0.41 GM/DL (0.17-0.41); ALPHA-2-GLOBULINS 0.99 GM/DL (0.42-0.99); ALPHA-2-GLOBULINS % 13.6 % (7.1-11.8); BETA-1-GLOBULINS 0.47 GM/DL (0.28-0.60); BETA-1-GLOBULINS % 6.5 % (4.7-7.2); BETA-2-GLOBULINS % 5.5 % (3.2-6.5); GAMMA GLOBULIN % 15.8 % (11.1-18.8); GAMMA GLOBULINS 1.15 GM/DL (0.65-1.58)
== END ==
LOC: M SFHCPLAZ 14:30
DX: D53.9 Nutritional anemia, unspecified (principal); E78.1 Pure hyperglyceridemia; E46 Unspecified protein-calorie malnutrition; Z13.1 Encounter for screening for diabetes mellitus; Z79.899 Other long term (current) drug therapy
CPT/HCPCS: 36415; 80053; 80061; 82607; 82728; 82746; 83036; 83540; 84165; 84443; 84466; 85025; G0463

== ENCOUNTER → 2021-06-15 | Outpatient (REF) | payer MEDICARE, MEDICAID ==
[~2021-06-15] MED LIST changes: -KLOR10TA76 PO; -LISI-898 PO; +LISI5TAB11 PO; +POTA-136 PO
== END ==
LOC: M WUC 15:49
PROVIDERS: ATTEND Physician Assistant
DX: R30.0 Dysuria (principal)

== ENCOUNTER → 2021-06-22 | Outpatient (CLI) | payer MEDICARE, MEDICAID, OTHER ==
[~2021-06-22] MED LIST changes: +EXCETAB32 PO; -EXCETAB33 PO
== END ==
LOC: M PAIN 13:30
PROVIDERS: ATTEND Nurse Practitioner Family
DX: M25.551 Pain in right hip (principal); G35 Multiple sclerosis; I10 Essential (primary) hypertension; G43.709 Chronic migraine without aura, not intractable, without status migrainosus; M54.50 Low back pain, unspecified; M79.661 Pain in right lower leg; M79.662 Pain in left lower leg; Z87.891 Personal history of nicotine dependence; Z79.899 Other long term (current) drug therapy
CPT/HCPCS: 73502; G0463

== ENCOUNTER → 2021-06-22 | Outpatient (CLI) | payer MEDICAID, MEDICARE, OTHER ==
[~2021-06-22] MED LIST changes: -EXCETAB32 PO; +EXCETAB33 PO
== END ==
LOC: M RAD 15:15
PROVIDERS: ATTEND Nurse Practitioner Family
DX: M25.551 Pain in right hip (principal)

== ENCOUNTER → 2021-07-19 | Outpatient (CLI) | payer MEDICARE ==
[~2021-07-19] MED LIST changes: +EXCETAB32 PO; -EXCETAB33 PO
== END ==
LOC: M SOG 12:57
PROVIDERS: ATTEND Orthopaedic Surgery Adult Reconstructive Orthopaedic Surgery
DX: M25.551 Pain in right hip (principal)

== ENCOUNTER → 2021-08-08 | Outpatient (CLI) | payer MEDICAID, MEDICARE ==
[~2021-08-08] MED LIST changes: +BUPIVACAINE HCL 0.5% 10ML VIAL As Ordered ONE; +ISOVUE-300 61% 50ML VIAL As Ordered ONE; +LIDOCAINE 1% MDV 20ML VIAL As Ordered ONE; +methylPREDNISolone 80MG/ML SUSP 1ML VIAL (J1040) As Ordered ONE
== END ==
LOC: M RADPRO 13:37
PROVIDERS: ATTEND Orthopaedic Surgery Adult Reconstructive Orthopaedic Surgery
DX: M16.51 Unilateral post-traumatic osteoarthritis, right hip (principal)
CPT/HCPCS: 20610; 76000; J1040; Q9967

== ENCOUNTER 2021-11-03 15:26 | Emergency (ER) | payer MEDICAID, MEDICARE ==
[~2021-11-03] VITALS: Ht 157.5 cm; Wt 56.4 kg
[~2021-11-03 15:26] MED LIST changes: -BUPIVACAINE HCL 0.5% 10ML VIAL As Ordered ONE; -ISOVUE-300 61% 50ML VIAL As Ordered ONE; -LIDOCAINE 1% MDV 20ML VIAL As Ordered ONE; +POTA-150 PO; -POTA10TA17 PO; -VANC10IN IV; +VANC10VI IV; -methylPREDNISolone 80MG/ML SUSP 1ML VIAL (J1040) As Ordered ONE
[2021-11-03 18:03] VITALS: BP 176/80
== END 2021-11-03 18:22 | disposition home or self-care (01) ==
LOC: M ED 15:26
DX: T83.091A Other mechanical complication of indwelling urethral catheter, initial encounter (principal); G35 Multiple sclerosis; J44.9 Chronic obstructive pulmonary disease, unspecified

== ENCOUNTER 2022-05-05 14:12 | Inpatient (IN) | payer MEDICARE, MEDICAID ==
[~2022-05-05] VITALS: Ht 157.5 cm; Wt 51.4 kg
[2022-05-05] MEDS ORDERED: NS 500 ML IV ONE (15:45)
[2022-05-05 16:16] LABS: BASO # 0.1 10^3/uL (0.0-0.2); BASO % 0.3 % (0.0-1.0); EOS % 0.3 % (0.0-3.0); HEMATOCRIT 27.9 % (36.0-47.0); HEMOGLOBIN 8.8 g/dl (12.0-15.5); LYMPH # 1.4 10^3/uL (1.5-5.0); LYMPH % 9.1 % (24.0-44.0); MEAN CORPUSCULAR HEMOGLOBIN 28.3 pg (27.0-33.0); MEAN CORPUSCULAR HGB CONC 31.5 g/dl (32.0-36.5); MEAN CORPUSCULAR VOLUME 89.7 fl (80.0-96.0); MONO # 0.7 10^3/uL (0.0-0.8); MONO % 4.4 % (2.0-8.0); NEUTROPHILS # 12.9 10^3/uL (1.5-8.5); NEUTROPHILS % 85.3 % (36.0-66.0); PLATELET COUNT, AUTOMATED 413 10^3/uL (150-450); RED BLOOD COUNT 3.11 10^6/uL (4.00-5.40); WHITE BLOOD COUNT 15.1 10^3/uL (4.0-10.0)
[2022-05-05 16:36] LABS: INR 1.02; PROTHROMBIN TIME 13.6 SECONDS (12.5-14.5)
[2022-05-05 16:38] LABS: LIPASE 35 U/L (12-53)
[2022-05-05 16:41] LABS: ALBUMIN 3.1 G/DL (3.2-5.2); ALKALINE PHOSPHATASE 71 U/L (46-116); ALT/SGPT 13 U/L (7.0-40); AST/SGOT 13 U/L (<34); BILIRUBIN,DIRECT < 0.1 MG/DL (<0.4); BILIRUBIN,TOTAL < 0.2 MG/DL (0.3-1.2); BLOOD UREA NITROGEN 44 MG/DL (9-23); CALCIUM LEVEL 9.3 MG/DL (8.3-10.6); CARBON DIOXIDE LEVEL 24 MMOL/L (20-31); CHLORIDE LEVEL 106 MMOL/L (98-107); GLOMERULAR FILTRATION RATE > 60.0 (>45); GLUCOSE, FASTING 118 MG/DL (74-106); POTASSIUM SERUM 4.4 MMOL/L (3.5-5.1); SODIUM LEVEL 139 MMOL/L (136-145); TOTAL PROTEIN 6.5 G/DL (5.7-8.2)
[2022-05-05 17:04] LABS: RSV AMPLIFICATION NEGATIVE (NEGATIVE)
[2022-05-05] MEDS ORDERED: ACETAMINOPHEN TAB 650MG DOSE (2X325MG) PO PRN (17:45)
[2022-05-05 18:19] LABS: IRON (FE) 19 UG/DL (50-170); PERCENT SATURATION 6.9 % (13.2-45.0); TOTAL IRON BINDING CAPACITY 277 UG/DL (250-425)
[2022-05-05] MEDS ORDERED: TIZA10TA PO (18:25)
[2022-05-05] MEDS ORDERED: HOME MED LIST COMPLETE! XX SCH (18:30)
[2022-05-05 18:31] LABS: FERRITIN 30.2 NG/ML (7.3-270.7)
[2022-05-05] MEDS ORDERED: BISACODYL 10MG SUPP PR PRN (18:55)
[2022-05-05 20:10] VITALS: BP 104/60
[2022-05-05 20:56] VITALS: BP 113/68
[2022-05-05] MEDS: tiZANidine 4 MG TAB PO SCH (20:56)
[2022-05-05] MEDS ORDERED: lisinopriL 5 MG TAB PO SCH (21:00)
[2022-05-05] MEDS ORDERED: CARVedilol 6.25 MG TAB PO SCH (21:00)
[2022-05-06] MEDS: traMADol 50 MG TAB PO PRN ×2 (00:35→10:21)
[2022-05-06 05:46] LABS: HEMATOCRIT 25.9 % (36.0-47.0); HEMOGLOBIN 8.1 g/dl (12.0-15.5); MEAN CORPUSCULAR HEMOGLOBIN 28.2 pg (27.0-33.0); MEAN CORPUSCULAR HGB CONC 31.3 g/dl (32.0-36.5); MEAN CORPUSCULAR VOLUME 90.2 fl (80.0-96.0); PLATELET COUNT, AUTOMATED 401 10^3/uL (150-450); RED BLOOD COUNT 2.87 10^6/uL (4.00-5.40)
[2022-05-06 06:00] VITALS: BP 101/60
[2022-05-06 06:17] LABS: BLOOD UREA NITROGEN 38 MG/DL (9-23); CALCIUM LEVEL 8.7 MG/DL (8.3-10.6); CARBON DIOXIDE LEVEL 26 MMOL/L (20-31); CHLORIDE LEVEL 105 MMOL/L (98-107); CREATININE FOR GFR 0.72 MG/DL (0.55-1.30); GLOMERULAR FILTRATION RATE > 60.0 (>45); GLUCOSE, FASTING 104 MG/DL (74-106); POTASSIUM SERUM 4.3 MMOL/L (3.5-5.1); SODIUM LEVEL 138 MMOL/L (136-145)
[2022-05-06] MEDS ORDERED: LACTOBACILLUS ACIDOPHILUS CAP (BACID) PO SCH (08:00)
[2022-05-06] MEDS: tiZANidine 4 MG TAB PO SCH (08:10)
[2022-05-06] MEDS ORDERED: MULTIVITAMINS/MINERALS THERAP 1 TAB PO SCH (09:00)
[2022-05-06] MEDS ORDERED: ENOXAPARIN 40MG/0.4ML SYRINGE (J1650 PER 10MG) SC SCH (09:00)
[2022-05-06] MEDS ORDERED: TRAM50TA2 PO (14:30)
[2022-05-06] MEDS ORDERED: ACET1TAB55 PO (14:30)
== END 2022-05-06 16:20 | disposition home health service (06) | DRG 542 ==
LOC: M ED 14:12 → M ED INP 17:45 → ENRESERV 19:40 → M MS5PR 20:25
PROVIDERS: ADMIT Internal Medicine; ATTEND Internal Medicine
PROC: 2W3MX2Z Immobilization of Left Lower Extremity using Cast (ICD-10-PCS; principal; 2022-05-05)
DX: M80.851A Other osteoporosis with current pathological fracture, right femur, initial encounter for fracture (principal); L89.154 Pressure ulcer of sacral region, stage 4; G35 Multiple sclerosis; I10 Essential (primary) hypertension; D50.9 Iron deficiency anemia, unspecified; Z87.891 Personal history of nicotine dependence; Z79.899 Other long term (current) drug therapy

== ENCOUNTER → 2022-05-16 | Outpatient (CLI) | payer MEDICARE, MEDICAID ==
[~2022-05-16] MED LIST changes: +TIZA10TA PO; +TRAM50TA2 PO
== END ==
LOC: M SOG 13:07
PROVIDERS: ATTEND Orthopaedic Surgery Adult Reconstructive Orthopaedic Surgery
DX: S72.90XA Unspecified fracture of unspecified femur, initial encounter for closed fracture (principal); X58.XXXA Exposure to other specified factors, initial encounter; Y92.89 Other specified places as the place of occurrence of the external cause; Y93.89 Activity, other specified; Y99.8 Other external cause status

== ENCOUNTER → 2022-05-27 | Outpatient (CLI) | payer MEDICARE, MEDICAID | LOC: M SOG 08:00 | PROVIDERS: ATTEND Orthopaedic Surgery Adult Reconstructive Orthopaedic Surgery | DX: S72.401D Unspecified fracture of lower end of right femur, subsequent encounter for closed fracture with routine healing (principal); W18.30XD Fall on same level, unspecified, subsequent encounter ==

== ENCOUNTER → 2022-05-30 | Outpatient (CLI) | payer MEDICARE, MEDICAID | LOC: M SOG 09:02 | PROVIDERS: ATTEND Orthopaedic Surgery Adult Reconstructive Orthopaedic Surgery | DX: S72.401D Unspecified fracture of lower end of right femur, subsequent encounter for closed fracture with routine healing (principal); W18.30XD Fall on same level, unspecified, subsequent encounter; Y92.009 Unspecified place in unspecified non-institutional (private) residence as the place of occurrence of the external cause ==

== ENCOUNTER → 2022-06-07 | Outpatient (CLI) | payer MEDICARE, MEDICAID | LOC: M SOG 08:24 | PROVIDERS: ATTEND Orthopaedic Surgery | DX: S72.401D Unspecified fracture of lower end of right femur, subsequent encounter for closed fracture with routine healing (principal); W18.30XD Fall on same level, unspecified, subsequent encounter; Y92.009 Unspecified place in unspecified non-institutional (private) residence as the place of occurrence of the external cause ==

== ENCOUNTER → 2022-06-21 | Outpatient (CLI) | payer MEDICARE, MEDICAID | LOC: M SOG 07:58 | PROVIDERS: ATTEND Orthopaedic Surgery | DX: S72.401P Unspecified fracture of lower end of right femur, subsequent encounter for closed fracture with malunion (principal) ==

== ENCOUNTER → 2022-07-16 | Outpatient (CLI) | payer MEDICARE, MEDICAID | LOC: M RAD 13:03 | PROVIDERS: ATTEND Surgery | DX: L89.613 Pressure ulcer of right heel, stage 3 (principal); I73.9 Peripheral vascular disease, unspecified ==

== ENCOUNTER 2022-07-19 12:47 | Emergency (ER) | payer MEDICARE, MEDICAID ==
[2022-07-19 15:08] LABS: BASO # 0.1 10^3/uL (0.0-0.2); BASO % 1.1 % (0.0-1.0); EOS # 0.2 10^3/uL (0.0-0.5); EOS % 2.1 % (0.0-3.0); HEMATOCRIT 32.6 % (36.0-47.0); HEMOGLOBIN 9.5 g/dl (12.0-15.5); LYMPH # 1.9 10^3/uL (1.5-5.0); LYMPH % 20.8 % (24.0-44.0); MEAN CORPUSCULAR HEMOGLOBIN 25.3 pg (27.0-33.0); MEAN CORPUSCULAR HGB CONC 29.1 g/dl (32.0-36.5); MEAN CORPUSCULAR VOLUME 86.9 fl (80.0-96.0); MONO # 0.7 10^3/uL (0.0-0.8); MONO % 7.3 % (2.0-8.0); NEUTROPHILS # 6.4 10^3/uL (1.5-8.5); NEUTROPHILS % 68.4 % (36.0-66.0); PLATELET COUNT, AUTOMATED 587 10^3/uL (150-450); RED BLOOD COUNT 3.75 10^6/uL (4.00-5.40); WHITE BLOOD COUNT 9.3 10^3/uL (4.0-10.0)
[2022-07-19 15:24] LABS: ALBUMIN 3.1 G/DL (3.2-5.2); ALKALINE PHOSPHATASE 140 U/L (46-116); ALT/SGPT 11 U/L (7.0-40); AST/SGOT 12 U/L (<34); BILIRUBIN,DIRECT < 0.1 MG/DL (<0.4); BILIRUBIN,TOTAL < 0.2 MG/DL (0.3-1.2); BLOOD UREA NITROGEN 25 MG/DL (9-23); CALCIUM LEVEL 8.9 MG/DL (8.3-10.6); CARBON DIOXIDE LEVEL 27 MMOL/L (20-31); CHLORIDE LEVEL 105 MMOL/L (98-107); CREATININE FOR GFR 0.79 MG/DL (0.55-1.30); GLOMERULAR FILTRATION RATE > 60.0 (>45); GLUCOSE, FASTING 94 MG/DL (74-106); POTASSIUM SERUM 3.9 MMOL/L (3.5-5.1); SODIUM LEVEL 140 MMOL/L (136-145)
[2022-07-19 15:28] LABS: ERYTHROCYTE SEDIMENTATION RATE > 130 mm/hr (0-30)
[2022-07-19 15:32] LABS: RSV AMPLIFICATION NEGATIVE (NEGATIVE)
== END 2022-07-19 16:26 | disposition home or self-care (01) ==
LOC: M ED 12:47
DX: Z48.00 Encounter for change or removal of nonsurgical wound dressing (principal); G35 Multiple sclerosis; Z79.899 Other long term (current) drug therapy

== ENCOUNTER → 2022-08-02 | Outpatient (CLI) | payer MEDICARE, MEDICAID | LOC: M SOG 08:14 | PROVIDERS: ATTEND Orthopaedic Surgery | DX: S72.401P Unspecified fracture of lower end of right femur, subsequent encounter for closed fracture with malunion (principal) ==

== ENCOUNTER → 2022-08-08 | Outpatient (CLI) | payer MEDICARE, MEDICAID ==
[~2022-08-08] MED LIST changes: +ISOVUE-370 76% 100ML VIAL As Ordered ONE
== END ==
LOC: M RAD 15:50
PROVIDERS: ATTEND Surgery
DX: L89.614 Pressure ulcer of right heel, stage 4 (principal)
CPT/HCPCS: 75635; Q9967

== ENCOUNTER 2022-10-15 21:08 | Observation (INO) | payer MEDICARE, MEDICAID ==
[~2022-10-15] VITALS: Ht 154.9 cm; Wt 49.1 kg
[~2022-10-15 21:08] MED LIST changes: -FERR325T3 PO; -IRON65TA2 PO; -RISATAB3 PO; -VITA100093 PO; -VITMTA PO
[2022-10-15] MEDS ORDERED: IRON65TA2 PO (21:22)
[2022-10-15 21:53] LABS: BASO # 0.1 10^3/uL (0.0-0.2); BASO % 0.8 % (0.0-1.0); EOS # 0.5 10^3/uL (0.0-0.5); EOS % 4.2 % (0.0-3.0); LYMPH # 1.8 10^3/uL (1.5-5.0); LYMPH % 17.1 % (24.0-44.0); MEAN CORPUSCULAR HEMOGLOBIN 24.1 pg (27.0-33.0); MEAN CORPUSCULAR HGB CONC 28.7 g/dl (32.0-36.5); MONO % 9.4 % (2.0-8.0); NEUTROPHILS # 7.4 10^3/uL (1.5-8.5); PLATELET COUNT, AUTOMATED 693 10^3/uL (150-450); RED BLOOD COUNT 2.12 10^6/uL (4.00-5.40); WHITE BLOOD COUNT 10.8 10^3/uL (4.0-10.0)
[2022-10-15] MEDS ORDERED: NS 500 ML IV ONE (21:55)
[2022-10-15 21:58] LABS: HEMATOCRIT 17.8 % (36.0-47.0); HEMOGLOBIN 5.1 g/dl (12.0-15.5)
[2022-10-15 22:15] LABS: CK-MB VALUE MASS 1.2 NG/ML (<3.6); LIPASE 52 U/L (12-53)
[2022-10-15 22:16] LABS: CPK CREATINE PHOSPHOKINASE 74 U/L (34-145); MB/CK RELATIVE INDEX 1.62 (< OR =4)
[2022-10-15 22:17] LABS: ALBUMIN 3.3 G/DL (3.2-5.2); ALKALINE PHOSPHATASE 92 U/L (46-116); ALT/SGPT 10 U/L (7.0-40); AST/SGOT 12 U/L (<34); BILIRUBIN,DIRECT < 0.1 MG/DL (<0.4); BILIRUBIN,TOTAL < 0.2 MG/DL (0.3-1.2); BLOOD UREA NITROGEN 27 MG/DL (9-23); CALCIUM LEVEL 9.1 MG/DL (8.3-10.6); CARBON DIOXIDE LEVEL 23 MMOL/L (20-31); CHLORIDE LEVEL 109 MMOL/L (98-107); CREATININE FOR GFR 0.84 MG/DL (0.55-1.30); GLOMERULAR FILTRATION RATE > 60.0 (>45); GLUCOSE, FASTING 121 MG/DL (74-106); INR 1.12; POTASSIUM SERUM 4.2 MMOL/L (3.5-5.1); PROTHROMBIN TIME 14.1 SECONDS (12.5-14.5); SODIUM LEVEL 144 MMOL/L (136-145); TOTAL PROTEIN 6.8 G/DL (5.7-8.2)
[2022-10-15 22:18] LABS: PARTIAL THROMBOPLASTIN TIME 30.3 SECONDS (24.8-34.2)
[2022-10-15 22:19] LABS: IRON (FE) 11 UG/DL (50-170); PERCENT SATURATION 3.1 % (13.2-45.0); TOTAL IRON BINDING CAPACITY 360 UG/DL (250-425)
[2022-10-15 22:21] LABS: FERRITIN 11.4 NG/ML (7.3-270.7)
[2022-10-15 22:22] LABS: FOLATE > 24.0 NG/ML (>5.4); VITAMIN B12 LEVEL 942 PG/ML (211-911)
[2022-10-15 22:43] LABS: RSV AMPLIFICATION NEGATIVE (NEGATIVE)
[2022-10-15 22:58] VITALS: BP 87/51; TEMP 97.6; O2SAT 100
[2022-10-15 23:02] LABS: ANISOCYTOSIS 2+; EOSINOPHILS 9 % (0-3); HYPOCHROMASIA 2+; LYMPHOCYTES 12 % (16-44); MONOCYTES 6 % (0-5); NEUTROPHILS 73 % (28-66); NUCLEATED RED BLOOD CELL 1 % (0-0); PLATELET ESTIMATE INCREASED (NORMAL); POLYCHROMASIA 1+
[2022-10-15 23:03] LABS: MICROCYTOSIS 1+
[2022-10-15 23:13] VITALS: BP 91/53; TEMP 97.6; O2SAT 100
[2022-10-16] VITALS (9 sets, daily range): BP systolic 121–152; BP diastolic 57–75; TEMP 98.4–100.4; O2SAT 96–99
[2022-10-16] MEDS ORDERED: ACETAMINOPHEN TAB 650MG DOSE (2X325MG) PO PRN (00:55)
[2022-10-16] MEDS ORDERED: FERR325T3 PO (02:16)
[2022-10-16] MEDS ORDERED: VITMTA PO (02:16)
[2022-10-16] MEDS ORDERED: RISATAB3 PO (02:16)
[2022-10-16] MEDS ORDERED: EXCETAB32 PO (02:16)
[2022-10-16] MEDS ORDERED: VITA100093 PO (02:16)
[2022-10-16] MEDS ORDERED: HOME MED LIST COMPLETE! XX SCH (02:20)
[2022-10-16] MEDS: PIPERACILLIN/TAZOBACTAM SOD 3.375 GM in D5W MINI-BAG PLUS 50 ML IV SCH ×2 (04:00→10:25)
[2022-10-16] MEDS ORDERED: VANCOMYCIN HCL 750 MG, VIAL MATE ADAPTER 1 EACH in D5W 250 ML IV ONE (04:00)
[2022-10-16] MEDS ORDERED: ENOXAPARIN 40MG/0.4ML SYRINGE (J1650 PER 10MG) SC SCH (09:00)
[2022-10-16] MEDS ORDERED: VANCOMYCIN HCL 500 MG in D5W MINI-BAG PLUS 100 ML IV SCH (10:00)
[2022-10-16] MEDS ORDERED: EXCEDRIN MIGRAINE TABLET PO PRN (10:40)
[2022-10-16 10:52] LABS: HEMATOCRIT 35.9 % (36.0-47.0); MEAN CORPUSCULAR HEMOGLOBIN 27.2 pg (27.0-33.0); MEAN CORPUSCULAR HGB CONC 32.3 g/dl (32.0-36.5); MEAN CORPUSCULAR VOLUME 84.1 fl (80.0-96.0); RED BLOOD COUNT 4.27 10^6/uL (4.00-5.40); WHITE BLOOD COUNT 16.2 10^3/uL (4.0-10.0)
[2022-10-16 10:54] LABS: HEMOGLOBIN 11.6 g/dl (12.0-15.5); PLATELET COUNT, AUTOMATED 542 10^3/uL (150-450)
[2022-10-16] MEDS ORDERED: tiZANidine 4 MG TAB PO SCH (14:00)
== END 2022-10-16 15:31 | disposition left against medical advice (07) ==
LOC: M ED 21:08 → M ED INP 10-16 00:51 → ENRESERV 10-16 13:27
PROVIDERS: ADMIT Internal Medicine; ATTEND Internal Medicine
DX: D64.9 Anemia, unspecified (principal); I95.9 Hypotension, unspecified; S72.91XK Unspecified fracture of right femur, subsequent encounter for closed fracture with nonunion; Y92.89 Other specified places as the place of occurrence of the external cause; Z87.81 Personal history of (healed) traumatic fracture; M24.561 Contracture, right knee; L89.159 Pressure ulcer of sacral region, unspecified stage; Z79.899 Other long term (current) drug therapy; Z87.891 Personal history of nicotine dependence
CPT/HCPCS: 36415; 36430; 71045; 80048; 80076; 82550; 82553; 82607; 82728; 82746; 83550; 83605; 83690; 84484; 85007; 85025; 85027; 85046; 85610; 85730; 86850; 86900; 86901; 86920; 87040; 87631; 93005; 93041; 96361; 96365; 96376; 99285; G0378; J2543; P9016

== ENCOUNTER → 2022-10-15 | Outpatient (CLI) | payer MEDICARE, MEDICAID ==
[~2022-10-15] MED LIST changes: +FERR325T3 PO; +IRON65TA2 PO; -ISOVUE-370 76% 100ML VIAL As Ordered ONE; +RISATAB3 PO; +VITA100093 PO; +VITMTA PO
[2022-10-15 17:40] LABS: BASO # 0.1 10^3/uL (0.0-0.2); BASO % 0.8 % (0.0-1.0); EOS # 0.4 10^3/uL (0.0-0.5); EOS % 4.1 % (0.0-3.0); LYMPH # 2.4 10^3/uL (1.5-5.0); LYMPH % 24.6 % (24.0-44.0); MEAN CORPUSCULAR HEMOGLOBIN 23.5 pg (27.0-33.0); MEAN CORPUSCULAR HGB CONC 27.6 g/dl (32.0-36.5); MEAN CORPUSCULAR VOLUME 85.3 fl (80.0-96.0); MONO # 0.9 10^3/uL (0.0-0.8); NEUTROPHILS # 5.9 10^3/uL (1.5-8.5); NEUTROPHILS % 60.9 % (36.0-66.0); PLATELET COUNT, AUTOMATED 656 10^3/uL (150-450); RED BLOOD COUNT 2.04 10^6/uL (4.00-5.40); WHITE BLOOD COUNT 9.7 10^3/uL (4.0-10.0)
[2022-10-15 17:54] LABS: BLOOD UREA NITROGEN 30 MG/DL (9-23); CARBON DIOXIDE LEVEL 25 MMOL/L (20-31); CHLORIDE LEVEL 107 MMOL/L (98-107); CREATININE FOR GFR 0.83 MG/DL (0.55-1.30); GLOMERULAR FILTRATION RATE > 60.0 (>45); GLUCOSE, FASTING 91 MG/DL (74-106); POTASSIUM SERUM 4.1 MMOL/L (3.5-5.1); SODIUM LEVEL 141 MMOL/L (136-145)
[2022-10-15 18:45] LABS: HEMATOCRIT 17.4 % (36.0-47.0); HEMOGLOBIN 4.8 g/dl (12.0-15.5)
== END ==
LOC: M PLALAB 16:03
PROVIDERS: ATTEND Student in an Organized Health Care Education/Training Program
DX: Z01.818 Encounter for other preprocedural examination (principal); G35 Multiple sclerosis; D64.9 Anemia, unspecified

== ENCOUNTER → 2022-10-15 | Outpatient (REF) | payer MEDICARE, MEDICAID | LOC: M SFHCPLAZ 21:02 | PROVIDERS: ATTEND Family Medicine | DX: D64.9 Anemia, unspecified (principal) ==

== ENCOUNTER → 2022-10-24 | Outpatient (REF) | payer MEDICARE, MEDICAID ==
[~2022-10-24] MED LIST changes: +FERR325T3 PO; +IRON65TA2 PO; +RISATAB3 PO; +VITA100093 PO; +VITMTA PO
[2022-10-24 18:31] LABS: BASO # 0.1 10^3/uL (0.0-0.2); EOS # 0.2 10^3/uL (0.0-0.5); EOS % 2.3 % (0.0-3.0); HEMATOCRIT 35.5 % (36.0-47.0); HEMOGLOBIN 10.8 g/dl (12.0-15.5); LYMPH # 1.5 10^3/uL (1.5-5.0); LYMPH % 14.9 % (24.0-44.0); MEAN CORPUSCULAR HEMOGLOBIN 27.3 pg (27.0-33.0); MEAN CORPUSCULAR HGB CONC 30.4 g/dl (32.0-36.5); MEAN CORPUSCULAR VOLUME 89.9 fl (80.0-96.0); MONO # 0.7 10^3/uL (0.0-0.8); MONO % 6.7 % (2.0-8.0); NEUTROPHILS # 7.5 10^3/uL (1.5-8.5); NEUTROPHILS % 74.7 % (36.0-66.0); PLATELET COUNT, AUTOMATED 408 10^3/uL (150-450); RED BLOOD COUNT 3.95 10^6/uL (4.00-5.40)
== END ==
LOC: M SFHCPLAZ 16:48
PROVIDERS: ATTEND Student in an Organized Health Care Education/Training Program
DX: D64.9 Anemia, unspecified (principal)

== ENCOUNTER → 2022-11-13 | Outpatient (REF) | payer MEDICAID, MEDICARE | LOC: M WUC 20:11 | PROVIDERS: ATTEND Physician Assistant Medical | DX: N39.0 Urinary tract infection, site not specified (principal) ==

== ENCOUNTER → 2022-11-28 | Outpatient (CLI) | payer MEDICARE, MEDICAID ==
[2022-11-28 15:53] LABS: BASO # 0.1 10^3/uL (0.0-0.2); BASO % 1.8 % (0.0-1.0); EOS # 0.5 10^3/uL (0.0-0.5); EOS % 6.4 % (0.0-3.0); HEMATOCRIT 37.9 % (36.0-47.0); HEMOGLOBIN 11.6 g/dl (12.0-15.5); LYMPH # 1.9 10^3/uL (1.5-5.0); LYMPH % 25.7 % (24.0-44.0); MEAN CORPUSCULAR HGB CONC 30.6 g/dl (32.0-36.5); MEAN CORPUSCULAR VOLUME 91.3 fl (80.0-96.0); MONO # 0.5 10^3/uL (0.0-0.8); MONO % 7.4 % (2.0-8.0); NEUTROPHILS # 4.2 10^3/uL (1.5-8.5); NEUTROPHILS % 58.6 % (36.0-66.0); PLATELET COUNT, AUTOMATED 413 10^3/uL (150-450); RED BLOOD COUNT 4.15 10^6/uL (4.00-5.40); WHITE BLOOD COUNT 7.2 10^3/uL (4.0-10.0)
[2022-11-28 16:14] LABS: BLOOD UREA NITROGEN 22 MG/DL (9-23); CALCIUM LEVEL 9.5 MG/DL (8.3-10.6); CARBON DIOXIDE LEVEL 31 MMOL/L (20-31); CHLORIDE LEVEL 107 MMOL/L (98-107); GLOMERULAR FILTRATION RATE > 60.0 (>45); GLUCOSE, FASTING 93 MG/DL (74-106); INR 1.06; POTASSIUM SERUM 4.7 MMOL/L (3.5-5.1); PROTHROMBIN TIME 13.5 SECONDS (12.5-14.5); SODIUM LEVEL 143 MMOL/L (136-145)
== END ==
LOC: M PLALAB 13:16
PROVIDERS: ATTEND Student in an Organized Health Care Education/Training Program
DX: Z01.818 Encounter for other preprocedural examination (principal)

== ENCOUNTER → 2023-01-31 | Outpatient (CLI) | payer MEDICARE, MEDICAID ==
[2023-01-31 17:41] LABS: BASO # 0.1 10^3/uL (0.0-0.2); BASO % 1.1 % (0.0-1.0); EOS # 0.4 10^3/uL (0.0-0.5); EOS % 4.8 % (0.0-3.0); HEMATOCRIT 37.2 % (36.0-47.0); HEMOGLOBIN 11.5 g/dl (12.0-15.5); LYMPH # 2.5 10^3/uL (1.5-5.0); LYMPH % 30.2 % (24.0-44.0); MEAN CORPUSCULAR HEMOGLOBIN 29.4 pg (27.0-33.0); MEAN CORPUSCULAR HGB CONC 30.9 g/dl (32.0-36.5); MEAN CORPUSCULAR VOLUME 95.1 fl (80.0-96.0); MONO # 0.6 10^3/uL (0.0-0.8); MONO % 7.9 % (2.0-8.0); NEUTROPHILS # 4.6 10^3/uL (1.5-8.5); NEUTROPHILS % 55.8 % (36.0-66.0); PLATELET COUNT, AUTOMATED 326 10^3/uL (150-450); RED BLOOD COUNT 3.91 10^6/uL (4.00-5.40); WHITE BLOOD COUNT 8.2 10^3/uL (4.0-10.0)
[2023-01-31 17:59] LABS: HEMOGLOBIN A1c 4.6 % (4.0-6.0)
[2023-01-31 18:11] LABS: TOTAL IRON BINDING CAPACITY 325 UG/DL (250-425)
[2023-01-31 18:12] LABS: ALBUMIN 3.6 G/DL (3.2-5.2); ALKALINE PHOSPHATASE 135 U/L (46-116); ALT/SGPT 16 U/L (7.0-40); AST/SGOT 15 U/L (<34); BILIRUBIN,TOTAL < 0.2 MG/DL (0.3-1.2); BLOOD UREA NITROGEN 37 MG/DL (9-23); CALCIUM LEVEL 9.7 MG/DL (8.3-10.6); CARBON DIOXIDE LEVEL 28 MMOL/L (20-31); CHLORIDE LEVEL 106 MMOL/L (98-107); CHOLESTEROL LEVEL 191 MG/DL (<200); CHOLESTEROL RISK RATIO 3.89 (<5); CREATININE FOR GFR 0.55 MG/DL (0.55-1.30); GLOMERULAR FILTRATION RATE > 60.0 (>45); GLUCOSE, FASTING 88 MG/DL (74-106); HDL CHOLESTEROL 49.1 MG/DL (>40); IRON (FE) 65 UG/DL (50-170); LDL CHOLESTEROL 100.1 MG/DL (<100); NON-HDL-C 141.9 MG/DL; SODIUM LEVEL 141 MMOL/L (136-145); TOTAL PROTEIN 7.2 G/DL (5.7-8.2); TRIGLYCERIDES LEVEL 209 MG/DL (<150)
[2023-01-31 18:13] LABS: FERRITIN 28.6 NG/ML (7.3-270.7)
== END ==
LOC: M PLALAB 14:56
PROVIDERS: ATTEND Student in an Organized Health Care Education/Training Program
DX: E78.1 Pure hyperglyceridemia (principal); I10 Essential (primary) hypertension; Z86.2 Personal history of diseases of the blood and blood-forming organs and certain disorders involving the immune mechanism; Z13.1 Encounter for screening for diabetes mellitus

== ENCOUNTER 2023-05-26 12:08 | Inpatient (IN) | payer MEDICARE, MEDICAID ==
[~2023-05-26] VITALS: Ht 157.5 cm; Wt 52.4 kg
[~2023-05-26 12:08] MED LIST changes: +DIPH1TAB81 PO; -DIPH2.5T15 PO; +[UNRECOGNIZED DRUG - CODE] IV; -[UNRECOGNIZED DRUG - CODE] IV
[2023-05-26 12:34] LABS: VENOUS BASE EXCESS -3.4 (-2.0-2.0); VENOUS HCO3 22.2 MMOL/L (23.0-27.0); VENOUS O2 SATURATION 53.9 % (60.0-80.0); VENOUS PARTIAL PRESSURE CO2 42.3 mmHg (38.0-50.0); VENOUS PARTIAL PRESSURE O2 30.2 mmHg (30.0-50.0); VENOUS PH 7.338 UNITS (7.330-7.430); VENOUS STANDARD HCO3 20.9 MMOL/L; VENOUS TOTAL CO2 23.5 MMOL/L (24.0-28.0)
[2023-05-26] MEDS: NS 1,000 ML IV ONE ×2 (12:49→20:15)
[2023-05-26] MEDS: PANTOPRAZOLE 40MG VIAL IV ONE (12:49)
[2023-05-26 12:50] LABS: BASO # 0.1 10^3/uL (0.0-0.2); BASO % 0.5 % (0.0-1.0); HEMATOCRIT 27.2 % (36.0-47.0); HEMOGLOBIN 9.1 g/dl (12.0-15.5); LYMPH # 1.7 10^3/uL (1.5-5.0); LYMPH % 9.9 % (24.0-44.0); MEAN CORPUSCULAR HEMOGLOBIN 31.9 pg (27.0-33.0); MEAN CORPUSCULAR HGB CONC 33.5 g/dl (32.0-36.5); MEAN CORPUSCULAR VOLUME 95.4 fl (80.0-96.0); MONO # 1.2 10^3/uL (0.0-0.8); NEUTROPHILS # 14.4 10^3/uL (1.5-8.5); NEUTROPHILS % 81.9 % (36.0-66.0); PLATELET COUNT, AUTOMATED 344 10^3/uL (150-450); RED BLOOD COUNT 2.85 10^6/uL (4.00-5.40); WHITE BLOOD COUNT 17.5 10^3/uL (4.0-10.0)
[2023-05-26 13:03] LABS: INR 1.01; PARTIAL THROMBOPLASTIN TIME 25.9 SECONDS (24.8-34.2)
[2023-05-26 13:08] LABS: ALBUMIN 3.5 G/DL (3.2-5.2); BILIRUBIN,DIRECT 0.1 MG/DL (<0.4); BILIRUBIN,TOTAL 0.3 MG/DL (0.3-1.2); CALCIUM LEVEL 9.6 MG/DL (8.3-10.6); GLOMERULAR FILTRATION RATE 59.4 (>45); POTASSIUM SERUM 4.8 MMOL/L (3.5-5.1); TOTAL PROTEIN 6.6 G/DL (5.7-8.2)
[2023-05-26] MEDS ORDERED: THERTAB52 PO (14:16)
[2023-05-26] MEDS ORDERED: HOME MED LIST COMPLETE! XX SCH (14:20)
[2023-05-26] MEDS ORDERED: SIMETHICONE 40MG/0.6ML DROPS 30ML As Ordered ONE (16:27)
[2023-05-26] MEDS ORDERED: propofoL 200 MG/20 ML VIAL As Ordered ONE (17:23)
[2023-05-26] MEDS ORDERED: LIDOCAINE 2% 100MG/5ML SDV (FOR ANES.) As Ordered ONE (17:23)
[2023-05-26] MEDS ORDERED: PHENYLephrine 500MCG 5ML (100MCG/ML) SYRINGE As Ordered ONE (17:23)
[2023-05-26] MEDS ORDERED: ePHEDrine SULFATE 25 MG/5 ML(5MG/ML) SYRINGE As Ordered ONE (17:23)
[2023-05-26 18:00] VITALS: BP 123/51; TEMP 97.8; O2SAT 95
[2023-05-26] MEDS: SUCRALFATE SUSP 1GM/10ML UD PO SCH (18:25)
[2023-05-26] MEDS: tiZANidine 4 MG TAB PO SCH (18:25)
[2023-05-26 19:00] LABS: HEMATOCRIT 25.9 % (36.0-47.0); HEMOGLOBIN 8.4 g/dl (12.0-15.5)
[2023-05-26 19:53] VITALS: BP 80/60; TEMP 97.5; O2SAT 95
[2023-05-26 20:34] LABS: THYROID STIMULATING HORMONE 4.137 uIU/ML (0.55-4.78)
[2023-05-26 20:50] VITALS: BP 100/70
[2023-05-26 21:30] VITALS: BP 102/70; TEMP 98.6
[2023-05-26 23:05] VITALS: BP 113/53; TEMP 99.3; O2SAT 94
[2023-05-27] VITALS (11 sets, daily range): BP systolic 96–133; BP diastolic 53–71; TEMP 97.3–99.7; O2SAT 93–99
[2023-05-27] MEDS: PANTOPRAZOLE 40MG VIAL IV SCH
[2023-05-27 00:31] LABS: HEMATOCRIT 21.6 % (36.0-47.0); HEMOGLOBIN 7.3 g/dl (12.0-15.5)
[2023-05-27 06:39] LABS: HEMOGLOBIN 9.4 g/dl (12.0-15.5)
[2023-05-27 08:19] LABS: BASO % 0.3 % (0.0-1.0); EOS % 0.3 % (0.0-3.0); LYMPH # 1.1 10^3/uL (1.5-5.0); LYMPH % 9.8 % (24.0-44.0); MEAN CORPUSCULAR HEMOGLOBIN 32.6 pg (27.0-33.0); MEAN CORPUSCULAR HGB CONC 33.6 g/dl (32.0-36.5); MEAN CORPUSCULAR VOLUME 97.2 fl (80.0-96.0); MONO % 8.3 % (2.0-8.0); NEUTROPHILS # 9.3 10^3/uL (1.5-8.5); NEUTROPHILS % 80.8 % (36.0-66.0); PLATELET COUNT, AUTOMATED 255 10^3/uL (150-450); RED BLOOD COUNT 2.88 10^6/uL (4.00-5.40); WHITE BLOOD COUNT 11.5 10^3/uL (4.0-10.0)
[2023-05-27 08:32] LABS: ALBUMIN 3.1 G/DL (3.2-5.2); ALKALINE PHOSPHATASE 57 U/L (46-116); ALT/SGPT 19 U/L (7.0-40); AST/SGOT 34 U/L (<34); BILIRUBIN,TOTAL 0.9 MG/DL (0.3-1.2); BLOOD UREA NITROGEN 46 MG/DL (9-23); CALCIUM LEVEL 8.9 MG/DL (8.3-10.6); CARBON DIOXIDE LEVEL 25 MMOL/L (20-31); CHLORIDE LEVEL 109 MMOL/L (98-107); CREATININE FOR GFR 0.61 MG/DL (0.55-1.30); GLOMERULAR FILTRATION RATE > 60.0 (>45); GLUCOSE, FASTING 97 MG/DL (74-106); SODIUM LEVEL 139 MMOL/L (136-145); TOTAL PROTEIN 5.8 G/DL (5.7-8.2)
[2023-05-27 12:40] LABS: HEMATOCRIT 26.2 % (36.0-47.0); HEMOGLOBIN 8.8 g/dl (12.0-15.5)
[2023-05-27 18:24] LABS: HEMATOCRIT 27.6 % (36.0-47.0); HEMOGLOBIN 9.5 g/dl (12.0-15.5)
[2023-05-28 00:18] LABS: HEMATOCRIT 24.4 % (36.0-47.0); HEMOGLOBIN 8.4 g/dl (12.0-15.5)
[2023-05-28 03:19] VITALS: BP 123/58; TEMP 98; O2SAT 96
[2023-05-28 05:49] LABS: HEMATOCRIT 26.1 % (36.0-47.0); HEMOGLOBIN 8.8 g/dl (12.0-15.5)
[2023-05-28 07:48] VITALS: BP 144/69; TEMP 97.5; O2SAT 95
[2023-05-28] MEDS: PANTOPRAZOLE 40MG TAB (PROTONIX) PO SCH (09:23)
[2023-05-28] MEDS ORDERED: PANT40TA29 PO (10:16)
[2023-05-28] MEDS ORDERED: SUCR1ORA PO (10:16)
== END 2023-05-28 12:47 | disposition home health service (06) | DRG 377 ==
LOC: EDBD 12:08 → M ED 12:08 → M ED INP 15:22 → M PCU 17:59
PROVIDERS: ADMIT Internal Medicine Nephrology; ATTEND Student in an Organized Health Care Education/Training Program
PROC: 0DB78ZX Excision of Stomach, Pylorus, Via Natural or Artificial Opening Endoscopic, Diagnostic (ICD-10-PCS; 2023-05-26)
PROC: 30233N1 Transfusion of Nonautologous Red Blood Cells into Peripheral Vein, Percutaneous Approach (ICD-10-PCS; 2023-05-26)
PROC: 0W3P8ZZ Control Bleeding in Gastrointestinal Tract, Via Natural or Artificial Opening Endoscopic (ICD-10-PCS; principal; 2023-05-26 18:00)
DX: K26.4 Chronic or unspecified duodenal ulcer with hemorrhage (principal); L89.154 Pressure ulcer of sacral region, stage 4; D62 Acute posthemorrhagic anemia; G35 Multiple sclerosis; I10 Essential (primary) hypertension; G43.909 Migraine, unspecified, not intractable, without status migrainosus; M54.50 Low back pain, unspecified; G89.29 Other chronic pain; Z66 Do not resuscitate; Z79.899 Other long term (current) drug therapy; Z87.891 Personal history of nicotine dependence; Z87.81 Personal history of (healed) traumatic fracture

== ENCOUNTER → 2023-06-05 | Outpatient (CLI) | payer MEDICARE, MEDICAID ==
[~2023-06-05] MED LIST changes: +PANT40TA29 PO; +SUCR1ORA PO; +THERTAB52 PO
[2023-06-05 17:58] LABS: FERRITIN 39.8 NG/ML (7.3-270.7)
[2023-06-05 18:00] LABS: ALBUMIN 3.2 G/DL (3.2-5.2); ALKALINE PHOSPHATASE 76 U/L (46-116); ALT/SGPT 19 U/L (7.0-40); AST/SGOT 15 U/L (<34); BILIRUBIN,TOTAL 0.3 MG/DL (0.3-1.2); BLOOD UREA NITROGEN 15 MG/DL (9-23); CALCIUM LEVEL 9.2 MG/DL (8.3-10.6); CARBON DIOXIDE LEVEL 32 MMOL/L (20-31); CHLORIDE LEVEL 104 MMOL/L (98-107); CREATININE FOR GFR 0.46 MG/DL (0.55-1.30); GLOMERULAR FILTRATION RATE > 60.0 (>45); GLUCOSE, FASTING 95 MG/DL (74-106); IRON (FE) 23 UG/DL (50-170); PERCENT SATURATION 9.4 % (13.2-45.0); SODIUM LEVEL 143 MMOL/L (136-145); TOTAL IRON BINDING CAPACITY 244 UG/DL (250-425); TOTAL PROTEIN 6.4 G/DL (5.7-8.2); VITAMIN B12 LEVEL 1191 PG/ML (211-911)
[2023-06-05 18:06] LABS: HEMATOCRIT 27.6 % (36.0-47.0)
[2023-06-05 18:21] LABS: BASO # 0.1 10^3/uL (0.0-0.2); BASO % 1.2 % (0.0-1.0); EOS # 0.3 10^3/uL (0.0-0.5); EOS % 5.3 % (0.0-3.0); HEMATOCRIT 27.6 % (36.0-47.0); HEMOGLOBIN 8.9 g/dl (12.0-15.5); LYMPH # 1.3 10^3/uL (1.5-5.0); LYMPH % 20.9 % (24.0-44.0); MEAN CORPUSCULAR HEMOGLOBIN 31.7 pg (27.0-33.0); MEAN CORPUSCULAR HGB CONC 32.2 g/dl (32.0-36.5); MEAN CORPUSCULAR VOLUME 98.2 fl (80.0-96.0); MONO # 0.5 10^3/uL (0.0-0.8); MONO % 8.6 % (2.0-8.0); NEUTROPHILS # 3.9 10^3/uL (1.5-8.5); NEUTROPHILS % 63.5 % (36.0-66.0); PLATELET COUNT, AUTOMATED 454 10^3/uL (150-450); RED BLOOD COUNT 2.81 10^6/uL (4.00-5.40); WHITE BLOOD COUNT 6.1 10^3/uL (4.0-10.0)
== END ==
LOC: M PLALAB 14:41
PROVIDERS: ATTEND Student in an Organized Health Care Education/Training Program
DX: D50.0 Iron deficiency anemia secondary to blood loss (chronic) (principal); Z86.2 Personal history of diseases of the blood and blood-forming organs and certain disorders involving the immune mechanism

== ENCOUNTER → 2023-06-24 | Outpatient (REF) | payer MEDICARE, MEDICAID ==
[2023-06-24 17:36] LABS: APPEARANCE, URINE CLOUDY (CLEAR); BACTERIA, URINE AUTO 1+ (NEGATIVE); BILIRUBIN, URINE AUTO NEGATIVE (NEGATIVE); BLOOD, URINE BLOOD 1+ (NEGATIVE); COLOR, URINE AMBER (YELLOW); GLUCOSE, URINE (UA) AUTO NEGATIVE (NEGATIVE); KETONE, URINE AUTO NEGATIVE (NEGATIVE); LEUKOCYTE ESTERASE, URINE AUTO 3+ (NEGATIVE); MUCUS, URINE SMALL (NEGATIVE); NITRITE, URINE AUTO POSITIVE (NEGATIVE); PROTEIN, URINE AUTO 2+ mg/dL (NEGATIVE); RBC, URINE AUTO 29 /HPF (0-3); SPECIFIC GRAVITY URINE AUTO 1.016 (1.002-1.035); SQUAMOUS EPITHELIAL CELL UR AU 1 /HPF (0-6); UROBILINOGEN, URINE AUTO 0.2 mg/dL (0.0-2.0); WBC, URINE AUTO TNTC /HPF (0-3)
== END ==
LOC: M SFHCPLAZ 16:59
PROVIDERS: ATTEND Student in an Organized Health Care Education/Training Program
DX: R30.0 Dysuria (principal)

== ENCOUNTER → 2023-09-11 | Outpatient (REF) | payer MEDICARE, MEDICAID | LOC: M LAB REF 18:07 | PROVIDERS: ATTEND Student in an Organized Health Care Education/Training Program | DX: R30.0 Dysuria (principal) ==

== ENCOUNTER → 2024-03-16 | Outpatient (CLI) | payer MEDICARE, MEDICAID ==
[2024-03-16 17:18] LABS: BASO # 0.1 10^3/uL (0.0-0.2); BASO % 0.9 % (0.0-1.0); EOS # 0.2 10^3/uL (0.0-0.5); EOS % 2.8 % (0.0-3.0); HEMOGLOBIN 14.1 g/dl (12.0-15.5); LYMPH # 1.8 10^3/uL (1.5-5.0); LYMPH % 24.1 % (24.0-44.0); MEAN CORPUSCULAR HGB CONC 33.6 g/dl (32.0-36.5); MEAN CORPUSCULAR VOLUME 95.5 fl (80.0-96.0); MONO # 0.6 10^3/uL (0.0-0.8); NEUTROPHILS # 4.8 10^3/uL (1.5-8.5); NEUTROPHILS % 64.1 % (36.0-66.0); PLATELET COUNT, AUTOMATED 323 10^3/uL (150-450); WHITE BLOOD COUNT 7.5 10^3/uL (4.0-10.0)
[2024-03-16 17:19] LABS: HEMATOCRIT 42.1 % (36.0-47.0)
[2024-03-16 17:41] LABS: IRON (FE) 99 UG/DL (50-170)
[2024-03-16 17:42] LABS: ALBUMIN 3.7 G/DL (3.2-5.2); ALKALINE PHOSPHATASE 84 U/L (35-104); ALT/SGPT 17 U/L (7.0-40); AST/SGOT 19 U/L (<34); BILIRUBIN,TOTAL 0.3 MG/DL (0.3-1.2); BLOOD UREA NITROGEN 17 MG/DL (9-23); CALCIUM LEVEL 9.9 MG/DL (8.3-10.6); CARBON DIOXIDE LEVEL 30 MMOL/L (20-31); CHLORIDE LEVEL 105 MMOL/L (98-107); CHOLESTEROL LEVEL 241 MG/DL (<200); CHOLESTEROL RISK RATIO 4.77 (<5); CREATININE FOR GFR 0.53 MG/DL (0.55-1.30); GLOMERULAR FILTRATION RATE > 60.0 (>45); GLUCOSE, FASTING 83 MG/DL (74-106); HDL CHOLESTEROL 50.5 MG/DL (>40); LDL CHOLESTEROL 151.1 MG/DL (<100); NON-HDL-C 190.5 MG/DL; PERCENT SATURATION 34.5 % (13.2-45.0); POTASSIUM SERUM 4.1 MMOL/L (3.5-5.1); SODIUM LEVEL 145 MMOL/L (136-145); TOTAL IRON BINDING CAPACITY 287 UG/DL (250-425); TOTAL PROTEIN 7.8 G/DL (5.7-8.2); TRIGLYCERIDES LEVEL 197 MG/DL (<150)
[2024-03-16 17:47] LABS: VITAMIN B12 LEVEL 1043 PG/ML (211-911)
== END ==
LOC: M PLALAB 14:25
PROVIDERS: ATTEND Student in an Organized Health Care Education/Training Program
DX: E87.6 Hypokalemia (principal); I10 Essential (primary) hypertension; E78.1 Pure hyperglyceridemia; D64.9 Anemia, unspecified; E56.9 Vitamin deficiency, unspecified

== ENCOUNTER → 2024-10-01 | Outpatient (REF) | payer MEDICARE, MEDICAID | LOC: M LAB REF 16:48 | PROVIDERS: ATTEND Nurse Practitioner Family | DX: R30.0 Dysuria (principal) ==

== ENCOUNTER → 2024-11-08 | Outpatient (CLI) | payer MEDICARE, MEDICAID | LOC: M RAD 11:13 | PROVIDERS: ATTEND Surgery | DX: L89.613 Pressure ulcer of right heel, stage 3 (principal); R09.89 Other specified symptoms and signs involving the circulatory and respiratory systems ==

== ENCOUNTER → 2025-01-11 | Outpatient (REF) | payer MEDICARE, MEDICAID ==
[2025-01-11 18:00] LABS: PLATELET COUNT, AUTOMATED 272 10^3/uL (150-450)
[2025-01-11 18:05] LABS: CHOLESTEROL LEVEL 157 MG/DL (<200); CHOLESTEROL RISK RATIO 3.33 (<5); FREE T4 1.10 NG/DL (0.89-1.76); LDL CHOLESTEROL 79.1 MG/DL (<100); NON-HDL-C 109.9 MG/DL; TRIGLYCERIDES LEVEL 154 MG/DL (<150)
[2025-01-11 18:07] LABS: VITAMIN B12 LEVEL 662 PG/ML (211-911)
== END ==
LOC: M SFHCPLAZ 14:08
PROVIDERS: ATTEND Family Medicine
DX: L65.9 Nonscarring hair loss, unspecified (principal); E78.1 Pure hyperglyceridemia